=== PATIENT | female | born 1935 | race Caucasian/White ===

== ENCOUNTER 2016-12-24 20:20 | Emergency (ER) | payer OTHER ==
[2016-12-24 20:30] VITALS: BP 134/66; PULSE 60; TEMP 98.2; BMI 39.6
--- NOTE | 2016-12-24 20:54 | PDOC ---
*Physical Exam - Vital Signs Last Vital Signs Temp Pulse Resp BP Pulse Ox 98.2 F 60 18 134/66 97 12/24/16 20:29 12/24/16 20:29 12/24/16 20:29 12/24/16 20:29 12/24/16 20:29 Medical Decision Making - Medical Decision Making 12/24/16 20:54 agree with care from LYUDMILA Galvan *DC/Admit/Observation/Transfer Diagnosis at time of Disposition: Folliculitis - Discharge Dispostion Disposition: HOME Condition at time of disposition: Stable - Prescriptions Prescriptions: Levofloxacin [Levaquin -] 250 mg PO DAILY #7 tablet - Patient Instructions Printed Discharge Instructions: DI for Folliculitis Additional Instructions: Please take medication as prescribed and follow up with your primary care doctor within the next 2-3 days. If you experience fever, chills, nausea, vomiting, diarrhea, weakness, change in vision, difficulty speaking, swallowing , or walking, or develop any new or worsening symptoms, please return to the ER.
--- NOTE | 2016-12-24 20:58 | PDOC ---
History of Present Illness - General Chief Complaint: Headache Stated Complaint: SIDE PAIN(HEAD) Time Seen by Provider: 12/24/16 20:34 - History of Present Illness Initial Comments: 12/24/16 20:52 CHIEF COMPLAINT: head pain HISTORY OF PRESENT ILLNESS: 81 yo F with hx of HTN, HLD, hypothyroidism, NIDDM, presents to ED with pain to left head x 2 days. Patient states she noticed a painful bump on her head for the last two days. She denies any trauma or injury and denies any fall. She denies any slurred speech, difficulty walking, change in vision or radiation of the pain. She denies any pain behind her eye or blurry vision. She denies chest pain, shortness of breath, weakness, fever, chills, nausea, vomiting, or diarrhea. No recent travel or sick contacts. PAST MEDICAL HISTORY: as per HPI FAMILY HISTORY: Mother - [place] SOCIAL HISTORY: Lives at home. Denies tobacco, alcohol, illicit drug use. ALLERGIES: No known drug allergies REVIEW OF SYSTEMS General/Constitutional: Denies fever or chills. Denies weakness, weight change. HEENT: Denies change in vision. Denies ear pain or discharge. Denies sore throat. Cardiovascular: Denies chest pain or shortness of breath. Respiratory: Denies cough, wheezing, or hemoptysis. Gastrointestinal: Denies nausea, vomiting, diarrhea or constipation. Denies rectal bleeding. Genitourinary: Denies dysuria, frequency, or change in urination. Musculoskeletal: Denies joint or muscle swelling or pain. Denies neck or back pain. Skin and breasts: Denies rash or easy bruising. Neurologic: Denies headache, vertigo, loss of consciousness, or loss of sensation. PHYSICAL EXAM General Appearance: Well-appearing, appropriately dressed. No apparent distress , no intoxication. HEENT: 1 in x 1.5 in area of fluctuance to left occiput, no erythema. EOMI, PERRLA, normal ENT inspection, normal voice, TMs normal, pharynx normal. No conjunctival pallor. No photophobia, scleral icterus. Neck: Supple. Trachea midline. No tenderness, rigidity, carotid bruit, stridor , lymphadenopathy, or thyromegaly. Respiratory/Chest: Lungs CTAB. Cardiovascular: RRR. S1, S2. Musculoskeletal/Extremities: Normal inspection. FROM of all extremities, normal capillary refill. Pelvis Stable. No CVA tenderness. No tenderness to extremities, pedal edema, swelling, erythema or deformity. Integumentary: Appropriate color, dry, warm. 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 Fully oriented, alert. Appropriate mood/affect. Motor strength 5/5. No appreciable EOM palsy, facial droop or sensory deficit.A &Ox3, follow commands, respond appropriately CN2-12: conjugate gaze, pupil round, equal and reactive to light. Visual field full to confrontation. EOMI without nystagmus, pursuit is smooth without saccade. Facial sensation and muscle activation intact bilaterally. Hearing intact bilaterally. Palate elevate symmetrically. Shoulder shrug and neck turn full strength. Tongue protrude midline. Motor: UE and LE strength 5/5 throughout bilaterally. Muscle tone and bulk normal. Cerebellar: Rapid-alternating movement with regular rhythm without bradykinesia. Ijazam-pv-bwbu and xbvv-ku-nelp intact bilaterally without dysmetria or overshoot. . Past History - Past Medical History Allergies/Adverse Reactions: Allergies Allergy/AdvReac Type Severity Reaction Status Date / Time No Known Allergies Allergy Verified 12/24/16 20:28 Home Medications: Ambulatory Orders Amlodipine Besylate 5 mg PO DAILY 05/17/16 Ipratropium [place] [Atrovent] 2 puff NS ASDIR 05/17/16 Irbesartan 300 mg PO DAILY 05/17/16 Levothyroxine [Synthroid -] 125 mcg PO DAILY 05/17/16 Metformin HCl [Metformin HCl ER] 1,000 mg PO BID 05/17/16 Metoprolol Succinate [Toprol XL -] 25 mg PO DAILY 05/17/16 Nitroglycerin [Nitrostat] 0.4 mg SL ASDIR 05/17/16 Pantoprazole Sodium [Protonix] 40 mg PO DAILY 05/17/16 Rosuvastatin Calcium [Crestor] 5 mg PO DAILY 05/17/16 Levofloxacin [Levaquin -] 250 mg PO DAILY #7 tablet 12/24/16 Cardiac Disorders: Yes (CAD) Diabetes: Yes (NIDDM) HTN: Yes Hypercholesterolemia: Yes - Surgical History Cholecystectomy: Yes - Psycho/Social/Smoking Cessation Hx Anxiety: No Suicidal Ideation: No Smoking Status: No Smoking History: Never smoked Number of Cigarettes Smoked Daily: 0 Hx Alcohol Use: No Drug/Substance Use Hx: No *Physical Exam - Vital Signs Last Vital Signs Temp Pulse Resp BP Pulse Ox 98.2 F 60 18 134/66 97 12/24/16 20:29 12/24/16 20:29 12/24/16 20:29 12/24/16 20:29 12/24/16 20:29 *DC/Admit/Observation/Transfer Diagnosis at time of Disposition: Folliculitis - Discharge Dispostion Disposition: HOME Condition at time of disposition: Stable Admit: No - Prescriptions Prescriptions: Levofloxacin [Levaquin -] 250 mg PO DAILY #7 tablet - Patient Instructions Printed Discharge Instructions: DI for Folliculitis Additional Instructions: Please take medication as prescribed and follow up with your primary care doctor within the next 2-3 days. If you experience fever, chills, nausea, vomiting, diarrhea, weakness, change in vision, difficulty speaking, swallowing , or walking, or develop any new or worsening symptoms, please return to the ER.
== END 2016-12-24 21:44 | disposition home or self-care (01) ==
LOC: JER 20:20
DX: L73.9 Follicular disorder, unspecified (principal); I10 Essential (primary) hypertension; E78.5 Hyperlipidemia, unspecified; E03.9 Hypothyroidism, unspecified; E11.9 Type 2 diabetes mellitus without complications; Z79.84 Long term (current) use of oral hypoglycemic drugs
CPT/HCPCS: 99281-25

== ENCOUNTER 2017-03-28 02:14 | Observation (INO) | payer OTHER ==
--- NOTE | 2017-03-28 02:39 | PDOC ---
History of Present Illness - General Chief Complaint: Chest Pain Stated Complaint: CHEST PAIN Time Seen by Provider: 03/28/17 02:38 History Source: Patient, Family (daughter) Exam Limitations: No Limitations - History of Present Illness Initial Comments: 03/28/17 03:42 81-year-old female brant with a history of angina, NIDDM, hypertension, hypothyroidism presents to the emergency department with her daughter this evening complaining of 7/10 midsternal intermittent chest pressure which radiates to the back with slight shortness of breath and diaphoresis. Patient states she was laying supine in her bed getting ready to sleep when she felt acute chest pressure. Patient immediately took 2 baby aspirins/81 mg. 5 minutes later, patient took 3 SL nitroglycerin tablets which cause slight dizziness but subsided within minutes. Patient states she became pain-free. Patient denies any nausea/vomiting, lightheadedness, headaches, abdominal pains, urinary symptoms. Last angina: 2011 Patient states she never had any cardiac surgery or cardiac stents placed. Presenting Symptoms: Chest Pain, Short of Breath Timing/Duration: reports: intermittent, resolved prior to arrival Severity/Quality: reports: mild, pressure Location: reports: substernal Chest Pain Radiation: reports: back Activities at Onset: reports: rest Past History - Travel Traveled outside of the country in the last 30 days: No Close contact w/someone who was outside of country & ill: No - Past Medical History Allergies/Adverse Reactions: Allergies Allergy/AdvReac Type Severity Reaction Status Date / Time No Known Allergies Allergy Verified 12/24/16 20:28 Home Medications: Ambulatory Orders Amlodipine Besylate 5 mg PO DAILY 05/17/16 Ipratropium [place] [Atrovent] 2 puff NS ASDIR 05/17/16 Irbesartan 300 mg PO DAILY 05/17/16 Levothyroxine [Synthroid -] 125 mcg PO DAILY 05/17/16 Metformin HCl [Metformin HCl ER] 1,000 mg PO BID 05/17/16 Metoprolol Succinate [Toprol XL -] 25 mg PO DAILY 05/17/16 Nitroglycerin [Nitrostat] 0.4 mg SL ASDIR 05/17/16 Pantoprazole Sodium [Protonix] 40 mg PO DAILY 05/17/16 Rosuvastatin Calcium [Crestor] 5 mg PO DAILY 05/17/16 Levofloxacin [Levaquin -] 250 mg PO DAILY #7 tablet 02/01/17 Amlodipine Besylate 5 mg PO DAILY 03/28/17 Ipratropium [place] [Atrovent Hfa] 12.9 gm IH PRN 03/28/17 Cardiac Disorders: Yes (CAD) Diabetes: Yes (NIDDM) HTN: Yes Hypercholesterolemia: Yes - Surgical History Cholecystectomy: Yes - Psycho/Social/Smoking Cessation Hx Anxiety: No Suicidal Ideation: No Smoking Status: No Smoking History: Never smoked Number of Cigarettes Smoked Daily: 0 Hx Alcohol Use: No Drug/Substance Use Hx: No Review of Systems - Review of Systems Able to Perform ROS?: Yes Comments:: 03/28/17 03:41 CONSTITUTIONAL: Absent: fever, chills, diaphoresis, generalized weakness, malaise, loss of appetite HEENT: Absent: rhinorrhea, nasal congestion, throat pain, throat swelling, difficulty swallowing, mouth swelling, ear pain, eye pain, visual Changes CARDIOVASCULAR: +CP/midsternal Absent: loss of consciousness, palpitations, irregular heart rate, peripheral edema RESPIRATORY: +SOB Absent: cough, dyspnea with exertion, orthopnea, wheezing, stridor, hemoptysis GASTROINTESTINAL: Absent: abdominal pain, abdominal distension, nausea, vomiting, diarrhea, constipation, melena, hematochezia GENITOURINARY: Absent: dysuria, frequency, urgency, hesitancy, hematuria, flank pain, genital pain MUSCULOSKELETAL: Absent: myalgia, arthralgia, joint swelling SKIN: Absent: rash, itching, pallor HEMATOLOGIC/IMMUNOLOGIC: Absent: easy bleeding, easy bruising, lymphadenopathy, frequent infections ENDOCRINE: Absent: unexplained weight gain, unexplained weight loss, heat intolerance, cold intolerance NEUROLOGIC: Absent: headache, focal weakness or paresthesias, dizziness, unsteady gait, seizure, mental status changes, bladder or bowel incontinence PSYCHIATRIC: Absent: anxiety, depression, suicidal or homicidal ideation, hallucinations. Is the patient limited Czech proficient: No *Physical Exam - Vital Signs Last Vital Signs Temp Pulse Resp BP Pulse Ox 98.2 F 64 16 116/67 100 03/28/17 02:35 03/28/17 02:35 03/28/17 02:35 03/28/17 02:35 03/28/17 02:35 - Physical Exam Comments: 03/28/17 03:42 GENERAL: Well developed, well nourished. Awake and alert. No acute distress. HEENT: Normocephalic, atraumatic. PERRLA, EOMI. No conjunctival pallor. Sclera are non- icteric. Moist mucous membranes. Oropharynx is clear. NECK: Supple. Full ROM. No JVD. Carotid pulses 2+ and symmetric, without bruits. No thyromegaly. No lymphadenopathy. CARDIOVASCULAR: Regular rate and rhythm. No murmurs, rubs, or gallops. Distal pulses are 2+ and symmetric. PULMONARY: No evidence of respiratory distress. Lungs clear to auscultation bilaterally. No wheezing, rales or rhonchi. ABDOMINAL: Soft. Non-tender. Non-distended. No rebound or guarding. No organomegaly. Normoactive bowel sounds. MUSCULOSKELETAL Normal range of motion at all joints. No bony deformities or tenderness. No CVA tenderness. EXTREMITIES: No cyanosis. No clubbing. No edema. No calf tenderness. SKIN: Warm and dry. Normal capillary refill. No rashes. No jaundice. NEUROLOGICAL: Alert, awake, appropriate. Cranial nerves 2-12 intact. No deficits to light touch and temperature in face, upper extremities and lower extremities. No motor deficits in the in face, upper extremities and lower extremities. Normoreflexic in the upper and lower extremities. Normal speech. Toes are down- going bilaterally. Gait is normal without ataxia. PSYCHIATRIC: Cooperative. Good eye contact. Appropriate mood and affect. Heart Score/ECG Review - History History: Moderately suspicious - Electrocardiogram EKG: Normal - Age Age: 45-65 - Risk Factors Risk Factors Heart Score: Yes Hx Hypertension, Yes Hx Diabetes, Yes Positive family hx of cardiac disease, Yes Hx Obesity Based on the list above the patient has:: >/=3 risk factors or Hx atherosclerotic disease - Troponin Troponin: </= normal limit - Score Heart Score - Total: 4 ED Treatment Course - LABORATORY CBC & Chemistry Diagram: 03/28/17 02:36 03/28/17 02:36 - ADDITIONAL ORDERS Additional order review: Laboratory Results 03/28/17 03/28/17 02:36 02:36 INR 0.94 Sodium 140 Potassium 3.5 D Chloride 101 Carbon Dioxide 27 Anion Gap 12 BUN 23 H Creatinine 1.4 H Creat Clearance w eGFR 36.27 Random Glucose 154 H Calcium 9.1 Total Bilirubin 0.3 AST 14 L D ALT 18 D Alkaline Phosphatase 65 Creatine Kinase 246 H D Creatine Kinase Index 0.6 CK-MB (CK-2) 1.408 Troponin I < 0.02 Total Protein 7.3 Albumin 4.0 03/28/17 02:36 RBC 4.07 MCV 84.3 MCHC 32.4 RDW 12.7 MPV 9.5 Neutrophils % 63.1 Lymphocytes % 28.1 D Monocytes % 7.4 Eosinophils % 0.8 Basophils % 0.6 Progress Note - Progress Note Progress Note: 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
[2017-03-28 02:48] VITALS: BMI 39.5
[2017-03-28 03:19] LABS: BASOPHIL 0.6 % (0-2.0); EOSINOPHIL 0.8 % (0-4.5); MCH 27.4 pg (25.7-33.7); MCHC 32.4 g/dl (32.0-36.0); MEAN CELL VOLUME 84.3 fl (80-96); MEAN PLT VOLUME 9.5 fl (7.5-11.1); NEUTROPHILS 63.1 % (42.8-82.8); PLATELET COUNT 186 K/MM3 (134-434); RDW 12.7 % (11.6-15.6); WHITE BLOOD COUNT 8.6 K/mm3 (4.0-10.0)
[2017-03-28 03:33] LABS: INR 0.94 (0.82-1.09); PROTHROMBIN TIME (PATIENT) 10.3 SEC (9.98-11.88)
[2017-03-28 03:41] LABS: ANION GAP 12 (8-16); BILIRUBIN,TOTAL 0.3 mg/dL (0.2-1.0); CALCIUM 9.1 mg/dL (8.5-10.1); CO2 27 mmol/L (21-32); CREATININE 1.4 mg/dL (0.55-1.02); GLUCOSE,RANDOM 154 mg/dL (74-106); SGOT/AST 14 U/L (15-37); SGPT/ALT 18 U/L (12-78); TOT PROT 7.3 g/dl (6.4-8.2)
[2017-03-28 03:44] LABS: ALK PHOS 65 U/L (45-117); TROPONIN I < 0.02 ng/ml (0.00-0.05)
--- NOTE | 2017-03-28 06:29 | HP ---
CHIEF COMPLAINT: chest pain PCP: Jesus Todd [phone]; Cardiology: Dr. Paez at [facility] cardiology center on [address] HISTORY OF PRESENT ILLNESS: This is a 81 year old female with a past medical history of angina (no CP for "years"), NIDDM, HTN, HLD, hypothyroidism, sleep apnea on CPAP who presented to the ED with CP. She states that she was in bed about to go to sleep when the pain started. She took 3 NTG and the pain resolved and has not recurred. Pt also with SOB and diaphoresis at time of event. Now with no CP or SOB. Pt states that her last stress test was March 2016 and was "normal;" last echo October 2016 also "normal" as per patient. ER course was notable for: (1) trop neg (2) ECG without acute changes Recent Travel: pt denies PAST MEDICAL HISTORY: angina-no interventions, last stress test 1 year ago and normal as per pt HTN HLD NIDDM hypothyroidism sleep apnea on CPAP PAST SURGICAL HISTORY: cholecystectomy, hysterectomy Social History: Smoking: pt denies Alcohol: pt denies Drugs: pt denies Family History: mother , [place] age 82 father mid 90s, no known medical problems 1 sister with IDDM, 7 brothers, 1 with DM, no heart problems. Allergies No Known Allergies Allergy (Verified 12/24/16 20:28) HOME MEDICATIONS: 3 Medication Instructions Recorded Amlodipine Besylate 5 mg PO DAILY 05/17/16 Ipratropium [place] [Atrovent] 2 puff NS ASDIR 05/17/16 Irbesartan 300 mg PO DAILY 05/17/16 Levothyroxine [Synthroid -] 125 mcg PO DAILY 05/17/16 Metformin HCl [Metformin HCl ER] 1,000 mg PO BID 05/17/16 Metoprolol Succinate [Toprol XL -] 25 mg PO DAILY 05/17/16 Nitroglycerin [Nitrostat] 0.4 mg SL ASDIR 05/17/16 Pantoprazole Sodium [Protonix] 40 mg PO DAILY 05/17/16 Rosuvastatin Calcium [Crestor] 5 mg PO DAILY 05/17/16 Levofloxacin [Levaquin -] 250 mg PO DAILY #7 tablet 12/24/16 Amlodipine Besylate 5 mg PO DAILY 03/28/17 Ipratropium [place] [Atrovent Hfa] 12.9 gm IH PRN 03/28/17 REVIEW OF SYSTEMS CONSTITUTIONAL: Present: diaphoresis Absent: fever, chills, generalized weakness, malaise, loss of appetite, weight change HEENT: Absent: rhinorrhea, nasal congestion, throat pain, throat swelling, difficulty swallowing, mouth swelling, ear pain, eye pain, visual changes CARDIOVASCULAR: Present: chest pain Absent: syncope, palpitations, irregular heart rate, lightheadedness, peripheral edema RESPIRATORY: Present: shortness of breath Absent: cough, dyspnea with exertion, orthopnea, wheezing, stridor, hemoptysis GASTROINTESTINAL: Absent: abdominal pain, abdominal distension, nausea, vomiting, diarrhea, constipation, melena, hematochezia GENITOURINARY: Absent: dysuria, frequency, urgency, hesitancy, hematuria, flank pain, genital pain MUSCULOSKELETAL: Absent: myalgia, arthralgia, joint swelling, back pain, neck pain SKIN: Absent: rash, itching, pallor HEMATOLOGIC/IMMUNOLOGIC: Absent: easy bleeding, easy bruising, lymphadenopathy, frequent infections ENDOCRINE: Absent: unexplained weight gain, unexplained weight loss, heat intolerance, cold intolerance NEUROLOGIC: Absent: headache, focal weakness or paresthesias, dizziness, unsteady gait, seizure, mental status changes, bladder or bowel incontinence PSYCHIATRIC: Absent: anxiety, depression, suicidal or homicidal ideation, hallucinations. PHYSICAL EXAMINATION Vital Signs - 24 hr 3 03/28/17 02:35 Temperature 98.2 F Pulse Rate 64 Respiratory 16 Rate Blood Pressure 116/67 O2 Sat by Pulse 100 Oximetry (%) GENERAL: Awake, alert, and fully oriented, in no acute distress. HEAD: Normal with no signs of trauma. EYES: Pupils equal, round and reactive to light, extraocular movements intact, sclera anicteric, conjunctiva clear. No lid lag. EARS, NOSE, THROAT: Ears normal, nares patent, oropharynx clear without exudates. Moist mucous membranes. NECK: Normal range of motion, supple without lymphadenopathy, JVD, or masses. LUNGS: Breath sounds equal, clear to auscultation bilaterally. No wheezes, and no crackles. No accessory muscle use. HEART: Regular rate and rhythm, normal S1 and S2 without murmur, rub or gallop. ABDOMEN: Soft, nontender, not distended, normoactive bowel sounds, no guarding, no rebound, no masses. No hepatomegaly or splenomegaly. MUSCULOSKELETAL: Normal range of motion at all joints. No bony deformities or tenderness. No CVA tenderness. UPPER EXTREMITIES: 2+ pulses, warm, well-perfused. No cyanosis. No clubbing. No peripheral edema. LOWER EXTREMITIES: 2+ pulses, warm, well-perfused. No calf tenderness. No peripheral edema. NEUROLOGICAL: Cranial nerves II-XII intact. Normal speech. Normal gait. PSYCHIATRIC: Cooperative. Good eye contact. Appropriate mood and affect. SKIN: Warm, dry, normal turgor, no rashes or lesions noted, normal capillary refill. Laboratory Results - last 24 hr 3 03/28/17 03/28/17 03/28/17 02:36 02:36 02:36 WBC 8.6 D RBC 4.07 Hgb 11.1 Hct 34.3 MCV 84.3 MCHC 32.4 RDW 12.7 Plt Count 186 MPV 9.5 Neutrophils % 63.1 Lymphocytes % 28.1 D Monocytes % 7.4 Eosinophils % 0.8 Basophils % 0.6 INR 0.94 Sodium 140 Potassium 3.5 D Chloride 101 Carbon Dioxide 27 Anion Gap 12 BUN 23 H Creatinine 1.4 H Creat Clearance w eGFR 36.27 Random Glucose 154 H Calcium 9.1 Total Bilirubin 0.3 AST 14 L D ALT 18 D Alkaline Phosphatase 65 Creatine Kinase 246 H D Creatine Kinase Index 0.6 CK-MB (CK-2) 1.408 Troponin I < 0.02 Total Protein 7.3 Albumin 4.0 ECG: NSR@ 62bpm; QTC 420, anterior infarct, age indetermined, inverted t in lead 3, V4, flattened V2, V3, not present on ECG 2012 CXR: no acute findings, read by me, official read pending ASSESSMENT/PLAN: 81yF with PMH HTN, angina, HLD, NIDDM, hypothyroidism presented to the ED with Chest pain. She is being admitted for further observation. Chest pain with h/o angina - first troponin negative, trend x 2 more - Heart score 5, cardiology consult ordered. - took ASA 162 at home, will start daily 81mg HTN - cont home toprol, irbesartan, norvasc as BP well controlled on same. HLD - cont crestor 5mg NIDDM - hold metformin for now, start insulin SS, titrate up as indicated. OSIMN - son instructed to bring in home machine to obtain settings DVT - chemoprophylaxis deferred for now, expected LOS <48h, reassess if here longer FEN - pt tolerating po fluids, cont same - repeat BMP with second trop - diabetic/low sodium diet. Dispo: pt currently requires inpatient observation for management of her emergent condition. Full code. Visit type - Emergency Visit Emergency Visit: Yes ED Registration Date: 03/28/17 Care time: The patient presented to the Emergency Department on the above date and was hospitalized for further evaluation of their emergent condition. - New Patient This patient is new to me today: Yes Date on this admission: 03/28/17 - Critical Care Critical Care patient: No
[2017-03-28] MEDS ORDERED: INSULIN SLIDING SCALE (NOVOLOG) 1 VIAL SQ SCH (07:00)
[2017-03-28] MEDS ORDERED: INSULIN REGULAR HUMAN 100 UNITS/ML *VIAL ONE (07:38)
--- NOTE | 2017-03-28 08:56 | CON.CARD ---
Consult Consult Specialty:: cardio Referred by:: hospitalist Reason for Consultation:: cp - History of Present Illness Chief Complaint: cp History of Present Illness: 81 year old female here with cp. lay down to go to bed around 1am this morning. immediately felt central chest pain, diffuse. can't describe quality of it. not radiating (incl to back). immediately took 2 ASA. after about 5-7 minutes SHE TOOK 3 X SL NITRO ALL AT ONCE and pain resolved "immediately." +assctd diaph. no sob, LH, no naus/vomiting, no acid/burning quality. says she never had this pain before and not like her prior "angina" sx. says she has no cp with routine walking/exertion. per hospitalist note, history obtained of unremarkable stress test 04/07 anbd echo 11/07 at her cardio (dr mendes)--pt tells me she had some testing in 03/09 as well. she cannot recall or be confident about timing of last stress test PMH: "angina" controlled medically x many yrs; NIDDM, HTN, HLD, hypothyroidism, sleep apnea on CPAP no cigs - Alcohol/Substance Use Hx Alcohol Use: No - Smoking History Smoking history: Never smoked Have you smoked in the past 12 months: No Aproximately how many cigarettes per day: 0 Home Medications - Allergies Allergies/Adverse Reactions: Allergies Allergy/AdvReac Type Severity Reaction Status Date / Time No Known Allergies Allergy Verified 12/24/16 20:28 - Home Medications Home Medications: Ambulatory Orders Amlodipine Besylate 5 mg PO DAILY 05/17/16 Ipratropium Hyden [Atrovent] 2 puff NS ASDIR 05/17/16 Irbesartan 300 mg PO DAILY 05/17/16 Levothyroxine [Synthroid -] 125 mcg PO DAILY 05/17/16 Metformin HCl [Metformin HCl ER] 1,000 mg PO BID 05/17/16 Metoprolol Succinate [Toprol XL -] 25 mg PO DAILY 05/17/16 Nitroglycerin [Nitrostat] 0.4 mg SL ASDIR 05/17/16 Pantoprazole Sodium [Protonix] 40 mg PO DAILY 05/17/16 Rosuvastatin Calcium [Crestor] 5 mg PO DAILY 05/17/16 Levofloxacin [Levaquin -] 250 mg PO DAILY #7 tablet 12/24/16 Amlodipine Besylate 5 mg PO DAILY 03/28/17 Ipratropium Hyden [Atrovent Hfa] 12.9 gm IH PRN 03/28/17 Family Disease History - Family Disease History Family History: Denies (no cmp) Review of Systems - Review of Systems Constitutional: denies: Chills, Fever Eyes: denies: Eye Pain HENT: denies: Nasal Congestion Neck: denies: Stiffness Cardiovascular: denies: Palpitations Respiratory: denies: Orthopnea, PND Gastrointestinal: denies: Diarrhea, Rectal Bleeding Genitourinary: denies: Burning, Hematuria Musculoskeletal: denies: Muscle Pain Integumentary: denies: Rash Neurological: denies: Numbness, Seizure, Syncope Endocrine: denies: Excessive Sweating Hematology/Lymphatic: denies: Excessive Bleeding Vital Signs: Vital Signs Temperature 98.2 F 03/28/17 06:45 Pulse Rate 52 L 03/28/17 07:45 Respiratory Rate 13 03/28/17 07:45 Blood Pressure 130/79 03/28/17 07:45 O2 Sat by Pulse Oximetry (%) 98 03/28/17 07:45 Constitutional: Yes: No Distress, Obese Eyes: No: Sclera Icterus HENT: No: Nasal Congestion Neck: No: Decreased ROM Respiratory: Yes: CTA Bilaterally. No: Accessory Muscle Use, Rales, Wheezes Gastrointestinal: Yes: Normal Bowel Sounds. No: Distention, Hepatomegaly, Palpable Mass, Tenderness Cardiovascular: Yes: Regular Rate and Rhythm JVD: No Carotid Bruit: No PMI: Non-Displaced Heart Sounds: Yes: S1, S2. No: Gallop Murmur: No: Systolic Murmur, Diastolic Murmur Musculoskeletal: Yes: Other (No kyphosis) Extremities: No: Cold, Cyanosis Edema: No Peripheral Pulses: 2+ Left Carotid, 2+ Right Carotid, 2+ Left Doralis Pedis, 2+ Right Dorsalis Pedis Integumentary: No: Jaundice Neurological: Yes: Alert, Oriented (x3) Psychiatric: No: Agitated - Other Data Labs, Other Data: INR, PTT INR 0.94 (0.82-1.09) 03/28/17 02:36 Laboratory Tests 03/28/17 03/28/17 02:36 02:36 WBC 8.6 D Hgb 11.1 Plt Count 186 Sodium 140 Potassium 3.5 D Carbon Dioxide 27 BUN 23 H Creatinine 1.4 H AST 14 L D ALT 18 D Creatine Kinase 246 H D Creatine Kinase Index 0.6 Troponin I < 0.02 ekg 03/28: NSR, normal axis/intervals; old AWM not present on prior 2012 tele: NSR Imaging - Results Chest X-ray: Report Reviewed, Image Reviewed Assessment/Plan Echo 2012 here: nl LV/EF, no RWMA; nl RV; nl LA; valves WNL unstable angia: -h/o remote "angina" no sx's x many yrs on meds -followed by dr mendes (cardio) for this -stress test ? 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 old AWMI pattern not present on prior here in 2012--based on appearance, suspect lead placement erroneous on ER ecg -rpt ECG today -initial trop eng, repeat 2nd at 8 hrs later -CXR here with no chf, ? cardiomeg, no mediastinal widening (reviewed by me); no clinical signs chf -will need to obtain last stress test result from dr mendes office on thursday: if 1 yr ago, pt needs repeat ischemia evaluation given these new sx's and she is diabetic elderly; if 6 mo or so ago, would not repeat nuclear stress test as unlikely to be illuminating, and would have to consider cath vs med mgmt with close outpt cardio f/u HTN: -bp stable -cont home meds HPL: -cont home tx, outpt f/u with dr mendes DM: -per hospitalist OSMIN: -outpt tx
--- NOTE | 2017-03-28 09:16 | EKG ---
Test Reason : Blood Pressure : / mmHG Vent. Rate : 062 BPM Atrial Rate : 062 BPM P-R Int : 188 ms QRS Dur : 098 ms QT Int : 414 ms P-R-T Axes : 041 -12 011 degrees QTc Int : 420 ms NORMAL SINUS RHYTHM ANTERIOR INFARCT , AGE UNDETERMINED ABNORMAL ECG WHEN COMPARED WITH ECG OF 03-MAR-2013 14:39, ANTERIOR INFARCT IS NOW PRESENT T WAVE INVERSION NOW EVIDENT IN ANTERIOR LEADS Confirmed by TIMOTHY ESPAÑA, HARIS ([id number]) on 03/28/2017 9:16:29 AM Referred By: Confirmed By:HARIS AGUIRRE MD
[2017-03-28 09:47] LABS: BASOPHIL 0.3 % (0-2.0); EOSINOPHIL 0.6 % (0-4.5); MCH 27.6 pg (25.7-33.7); MCHC 32.6 g/dl (32.0-36.0); MEAN CELL VOLUME 84.6 fl (80-96); MEAN PLT VOLUME 9.4 fl (7.5-11.1); NEUTROPHILS 62.1 % (42.8-82.8); PLATELET COUNT 172 K/MM3 (134-434); RDW 13.1 % (11.6-15.6); WHITE BLOOD COUNT 9.7 K/mm3 (4.0-10.0)
[2017-03-28 10:07] LABS: ANION GAP 10 (8-16); CALCIUM 9.4 mg/dL (8.5-10.1); CO2 27 mmol/L (21-32); COCKROFT - GAULT 60.7835; CREATININE 1.2 mg/dL (0.55-1.02); GLUCOSE,RANDOM 187 mg/dL (74-106); MAGNESIUM 1.9 mg/dL (1.8-2.4); PHOSPHOROUS 2.7 mg/dL (2.5-4.9)
[2017-03-28] MEDS: PANTOPRAZOLE 40 MG TABLET (FP) PO SCH (10:27)
[2017-03-28] MEDS: amLODIPine BESYLATE 5 MG TABLET (FP) PO SCH (10:27)
[2017-03-28] MEDS: LEVOTHYROXINE NA 125 MCG TABLET (FP) PO SCH (10:27)
[2017-03-28] MEDS: METOPROLOL SUCCINATE 25 MG TAB.SR.24H (FP) PO SCH ×2 (10:27→10:35)
[2017-03-28] MEDS: LOSARTAN POTASSIUM 50 MG TABLET (FP) PO SCH (10:27)
--- NOTE | 2017-03-28 10:38 | PN ---
Physical Exam: SUBJECTIVE: Patient seen and examined. She denies chest pain at this time. Denies shortness of breath. States she has Nitro @ home which she renews frequently for her anginal pain. 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 AV block/pvcs Vital Signs Period Temp Pulse Resp BP Sys/Choi Pulse Ox Last 24 Hr 98.2 F 52-56 13-16 130-130/73-79 98-98 GENERAL: The patient is awake, alert, and fully oriented, in no acute distress. HEAD: Normal with no signs of trauma. EYES: PERRL, extraocular movements intact, sclera anicteric, conjunctiva clear. No ptosis. ENT: Ears normal, nares patent, oropharynx clear without exudates, moist mucous membranes. NECK: Trachea midline, full range of motion, supple. LUNGS: Breath sounds equal, clear to auscultation bilaterally, no wheezes, no crackles, no accessory muscle use. HEART: sinus bradycardia 59bpm ABDOMEN: Soft, nontender, nondistended, normoactive bowel sounds, no guarding, no rebound, no hepatosplenomegaly, no masses. EXTREMITIES: no edema. NEUROLOGICAL: Normal speech, gait not observed. PSYCH: Normal mood, normal affect. SKIN: Warm, dry, normal turgor, no rashes or lesions noted Laboratory Results - last 24 hr 03/28/17 03/28/17 09:20 09:20 WBC 9.7 RBC 4.05 Hgb 11.2 Hct 34.3 MCV 84.6 MCHC 32.6 RDW 13.1 Plt Count 172 MPV 9.4 Neutrophils % 62.1 Lymphocytes % 31.0 Monocytes % 6.0 Eosinophils % 0.6 Basophils % 0.3 Sodium 138 Potassium 3.6 Chloride 101 Carbon Dioxide 27 Anion Gap 10 BUN 21 H Creatinine 1.2 H Random Glucose 187 H D Calcium 9.4 Phosphorus 2.7 Magnesium 1.9 Active Medications Generic Name Dose Route Start Last Admin Trade Name Freq PRN Reason Stop Dose Admin Amlodipine Besylate 5 mg 03/28/17 10:00 03/28/17 10:27 Norvasc - PO 5 mg DAILY [facility] Administration Insulin Aspart 1 vial 03/28/17 08:07 Novolog Vial Sliding Scale - SQ ACHS [facility] Protocol Levothyroxine Sodium 125 mcg 03/28/17 10:00 03/28/17 10:27 Synthroid - PO 125 mcg DAILY [facility] Administration Losartan Potassium 100 mg 03/28/17 10:00 03/28/17 10:27 Cozaar - PO 100 mg DAILY [facility] Administration Metoprolol Succinate 25 mg 03/28/17 10:00 03/28/17 10:35 Toprol Xl - PO Not Given DAILY [facility] Pantoprazole Sodium 40 mg 03/28/17 10:00 03/28/17 10:27 Protonix - PO 40 mg DAILY [facility] Administration Rosuvastatin Calcium 5 mg 03/28/17 22:00 Crestor - PO HS [facility] ASSESSMENT/PLAN: Patient is a 81 year old female with a significant past medical history of angina, diabetes mellitus, hypertension, hyperlipidemia, hypothyroidism and sleep apnea on home CPAP. She presented to the ED on 03/28/2017 with chest pain, shortness of breath and diaphoresis that began last night while attempting to go to sleep. She took 3 Nitro pills and the chest pain pain subsided. On exam, she was laying in the bed, in no acute distress. She appears comfortable at rest. She denies any chest pain or shortness of breath. Cardiology: Chest Pain/Rule out ACS Assessment/Plan: Troponin negative x 2 As per Ed notes, pt took ASA 162mg @ home Now on ASA 81mg daily As per cardiology note, will obtain last stress test result from dr mendes office on thursday and monitor if pt needs repeat exam. Hypertension - chronic Assessment/Plan: On Toprol 25mg PO daily, Norvasc 5mg daily, Cozaar 100mg daily Monitor BP Hyperlipidemia: Assessment/Plan: On home dose of Crestor 5mg PO @ HS Endocrine: Assessment/Plan: Novolog sliding scale Monitor BGMs F.E.N. Fluids: tolerating PO Electrolytes: bmp in a.m. Prophylaxis: DVT: ambulatory GI: Protonix Disposition: pt currently requires inpatient observation for management of her emergent condition. Full code. Visit type - Emergency Visit Emergency Visit: Yes ED Registration Date: 03/28/17 Care time: The patient presented to the Emergency Department on the above date and was hospitalized for further evaluation of their emergent condition. - New Patient This patient is new to me today: Yes Date on this admission: 03/29/17 - Critical Care Critical Care patient: No - Discharge Referral Referred to [facility] No
[2017-03-28 11:28] LABS: TROPONIN I < 0.02 ng/ml (0.00-0.05)
[2017-03-28] MEDS: INSULIN SLIDING SCALE (NOVOLOG) 1 VIAL SQ SCH ×3 (11:55→21:27)
--- NOTE | 2017-03-28 16:28 | EKG ---
Test Reason : Blood Pressure : / mmHG Vent. Rate : 059 BPM Atrial Rate : 059 BPM P-R Int : 222 ms QRS Dur : 096 ms QT Int : 452 ms P-R-T Axes : 046 -07 011 degrees QTc Int : 447 ms SINUS BRADYCARDIA WITH 1ST DEGREE A-V BLOCK WITH OCCASIONAL PREMATURE VENTRICULAR COMPLEXES NONSPECIFIC T WAVE ABNORMALITY ABNORMAL ECG WHEN COMPARED WITH ECG OF 28-MAR-2017 02:22, PREMATURE VENTRICULAR COMPLEXES ARE NOW PRESENT [facility] INTERVAL HAS INCREASED CRITERIA FOR ANTERIOR INFARCT ARE NO LONGER PRESENT Confirmed by HARIS AGUIRRE MD ([id number]) on 03/28/2017 4:27:54 PM Referred By: Hawk SHAFER Confirmed By:HARIS AGUIRRE MD
[2017-03-28] MEDS: INSULIN DETEMIR 100 UNITS/ML MDV SQ SCH (21:27)
[2017-03-28] MEDS ORDERED: ROSUVASTATIN CA 5 MG TABLET (FP) PO SCH (22:00)
[2017-03-29] MEDS: INSULIN SLIDING SCALE (NOVOLOG) 1 VIAL SQ SCH ×4 (06:06→21:10)
[2017-03-29 08:07] LABS: BASOPHIL 0.3 % (0-2.0); EOSINOPHIL 1.3 % (0-4.5); MCH 27.8 pg (25.7-33.7); MCHC 32.9 g/dl (32.0-36.0); MEAN CELL VOLUME 84.3 fl (80-96); MEAN PLT VOLUME 9.5 fl (7.5-11.1); PLATELET COUNT 172 K/MM3 (134-434); RDW 13.2 % (11.6-15.6)
[2017-03-29 08:57] LABS: ALBUMIN 3.7 g/dl (3.4-5.0); BILIRUBIN,TOTAL 0.5 mg/dL (0.2-1.0); COCKROFT - GAULT 66.3085; CREATININE 1.1 mg/dL (0.55-1.02); THYROID STIMULATING HORMONE 1.54 uIU/ml (0.358-3.74)
--- NOTE | 2017-03-29 09:36 | PN ---
Physical Exam: SUBJECTIVE: Patient seen and examined. States she feels well today, not able to sleep last night. Denies chest pain or shortness of breath Tolerated CPAP last night. OBJECTIVE: Triglycerides 183 HDL 39 Renal function stable, increased Crestor to 10mg @hs Vital Signs Period Temp Pulse Resp BP Sys/Choi Pulse Ox Last 24 Hr 97.6 F-98.5 F 50-69 16-20 128-154/56-73 98-98 GENERAL: The patient is awake, alert, and fully oriented, in no acute distress. HEAD: Normal with no signs of trauma. EYES: PERRL, extraocular movements intact, sclera anicteric, conjunctiva clear. No ptosis. ENT: Ears normal, nares patent, oropharynx clear without exudates, moist mucous membranes. NECK: Trachea midline, full range of motion, supple. LUNGS: Breath sounds equal, clear to auscultation bilaterally, no wheezes, no crackles, no accessory muscle use. HEART: sinus bradycardia 59bpm ABDOMEN: Soft, nontender, nondistended, normoactive bowel sounds, no guarding, no rebound, no hepatosplenomegaly, no masses. EXTREMITIES: no edema. NEUROLOGICAL: Normal speech, gait not observed. PSYCH: Normal mood, normal affect. SKIN: Warm, dry, normal turgor, no rashes or lesions noted Laboratory Results - last 24 hr 03/28/17 03/28/17 03/28/17 07:00 07:34 09:20 WBC 9.7 RBC 4.05 Hgb 11.2 Hct 34.3 MCV 84.6 MCHC 32.6 RDW 13.1 Plt Count 172 MPV 9.4 Neutrophils % 62.1 Lymphocytes % 31.0 Monocytes % 6.0 Eosinophils % 0.6 Basophils % 0.3 Sodium Potassium Chloride Carbon Dioxide Anion Gap BUN Creatinine Creat Clearance w eGFR POC Glucometer [id number] Random Glucose Calcium Phosphorus Magnesium Total Bilirubin AST ALT Alkaline Phosphatase Creatine Kinase Cancelled Troponin I Cancelled Total Protein Albumin Triglycerides Cholesterol Total LDL Cholesterol HDL Cholesterol TSH 03/28/17 03/28/17 03/28/17 09:20 17:10 21:19 WBC RBC Hgb Hct MCV MCHC RDW Plt Count MPV Neutrophils % Lymphocytes % Monocytes % Eosinophils % Basophils % Sodium 138 Potassium 3.6 Chloride 101 Carbon Dioxide 27 Anion Gap 10 BUN 21 H Creatinine 1.2 H Creat Clearance w eGFR POC Glucometer 183 Random Glucose 187 H D Calcium 9.4 Phosphorus 2.7 Magnesium 1.9 Total Bilirubin AST ALT Alkaline Phosphatase Creatine Kinase 241 H Troponin I < 0.02 < 0.02 Total Protein Albumin Triglycerides Cholesterol Total LDL Cholesterol HDL Cholesterol TSH 03/29/17 03/29/17 03/29/17 05:35 05:35 06:02 WBC 7.0 RBC 4.09 Hgb 11.4 Hct 34.5 MCV 84.3 MCHC 32.9 RDW 13.2 Plt Count 172 MPV 9.5 Neutrophils % 53.0 Lymphocytes % 38.8 D Monocytes % 6.6 Eosinophils % 1.3 D Basophils % 0.3 Sodium 138 Potassium 3.5 Chloride 101 Carbon Dioxide 27 Anion Gap 10 BUN 21 H Creatinine 1.1 H Creat Clearance w eGFR 47.91 POC Glucometer 154 Random Glucose 141 H D Calcium 9.0 Phosphorus Magnesium Total Bilirubin 0.5 D AST 11 L D ALT 17 Alkaline Phosphatase 55 Creatine Kinase Troponin I Total Protein 7.0 Albumin 3.7 Triglycerides 183 H Cholesterol 123 Total LDL Cholesterol 62 HDL Cholesterol 39 L D TSH 1.54 Active Medications Generic Name Dose Route Start Last Admin Trade Name Freq PRN Reason Stop Dose Admin Amlodipine Besylate 5 mg 03/28/17 10:00 03/28/17 10:27 Norvasc - PO 5 mg DAILY [facility] Administration Insulin Aspart 1 vial 03/28/17 19:06 03/29/17 06:06 Novolog Vial Sliding Scale - SQ Not Given [facility] Protocol Insulin Detemir 5 units 03/28/17 22:00 03/28/17 21:27 Levemir Vial SQ Not Given [facility] Levothyroxine Sodium 125 mcg 03/28/17 10:00 03/28/17 10:27 Synthroid - PO 125 mcg DAILY [facility] Administration Losartan Potassium 100 mg 03/28/17 10:00 03/28/17 10:27 Cozaar - PO 100 mg DAILY [facility] Administration Metoprolol Succinate 25 mg 03/28/17 11:05 Toprol Xl - PO DAILY [facility] Pantoprazole Sodium 40 mg 03/28/17 10:00 03/28/17 10:27 Protonix - PO 40 mg DAILY [facility] Administration Rosuvastatin Calcium 10 mg 03/29/17 09:29 Crestor - PO [facility] ASSESSMENT/PLAN: Patient is a 81 year old female with a significant past medical history of angina, diabetes mellitus, hypertension, hyperlipidemia, hypothyroidism and sleep apnea on home CPAP. She presented to the ED on 03/28/2017 with chest pain, shortness of breath and diaphoresis that began last night while attempting to go to sleep. She took 3 Nitro pills and the chest pain subsided. On exam, she was laying in the bed, in no acute distress. She appears comfortable at rest. She denies any chest pain or shortness of breath. Cardiology: Chest Pain/Rule out ACS Assessment/Plan: Troponin negative x 3 As per Ed notes, pt took ASA 162mg @ home Now on ASA 81mg daily As per cardiology note, will obtain last stress test result from dr mendes office on Thursday and monitor if pt needs repeat exam NPO @ midnight in case stress test is needed. Hypertension - chronic Assessment/Plan: On Toprol 25mg PO daily, Norvasc 5mg daily, Cozaar 100mg daily Monitor BP Hyperlipidemia: Assessment/Plan: On home dose of Crestor 5mg PO @ HS Endocrine: Assessment/Plan: Novolog sliding scale Monitor BGMs F.E.N. Fluids: tolerating PO Electrolytes: bmp in a.m. Prophylaxis: DVT: ambulatory GI: Protonix Disposition: pt currently requires inpatient observation for management of her emergent condition. Discharge once cleared by electroneurodiagnostic technician. Full code. Visit type - Emergency Visit Emergency Visit: Yes ED Registration Date: 03/28/17 Care time: The patient presented to the Emergency Department on the above date and was hospitalized for further evaluation of their emergent condition. - New Patient This patient is new to me today: No - Critical Care Critical Care patient: No - Discharge Referral Referred to [facility] Med P.C.: No
--- NOTE | 2017-03-29 10:00 | PN ---
Progress Note, Physician Chief Complaint: unstable angina History of Present Illness: no more cp no sob, palpit, syncope - Current Medication List Current Medications: Active Medications Amlodipine Besylate (Norvasc -) 5 mg PO DAILY [facility] Last Admin: 03/28/17 10:27 Dose: 5 mg Insulin Aspart (Novolog Vial Sliding Scale -) 1 vial SQ [facility] PRN Reason: Protocol Last Admin: 03/29/17 06:06 Dose: Not Given Insulin Detemir (Levemir Vial) 5 units SQ [facility] Last Admin: 03/28/17 21:27 Dose: Not Given Levothyroxine Sodium (Synthroid -) 125 mcg PO DAILY [facility] Last Admin: 03/28/17 10:27 Dose: 125 mcg Losartan Potassium (Cozaar -) 100 mg PO DAILY [facility] Last Admin: 03/28/17 10:27 Dose: 100 mg Metoprolol Succinate (Toprol Xl -) 25 mg PO DAILY [facility] Pantoprazole Sodium (Protonix -) 40 mg PO DAILY [facility] Last Admin: 03/28/17 10:27 Dose: 40 mg Rosuvastatin Calcium (Crestor -) 10 mg PO [facility] - Objective Vital Signs: Vital Signs Temperature 97.8 F 03/29/17 06:07 Pulse Rate 50 L 03/29/17 06:07 Respiratory Rate 18 03/29/17 06:07 Blood Pressure 132/71 03/29/17 06:07 O2 Sat by Pulse Oximetry (%) 98 03/29/17 07:02 Constitutional: Yes: No Distress, Calm, Obese Cardiovascular: Yes: Regular Rate and Rhythm, S1, S2. No: Gallop, Murmur Respiratory: Yes: Regular, CTA Bilaterally. No: Accessory Muscle Use, Rales, Wheezes Extremities: No: Cold Edema: No Neurological: Yes: Alert, Oriented Psychiatric: No: Agitated Labs: CBC, BMP 03/29/17 05:35 03/29/17 05:35 INR, PTT INR 0.94 (0.82-1.09) 03/28/17 02:36 - ....Imaging EKG: Other (tele: NSR, artifact) Assessment/Plan Echo 2012 here: nl LV/EF, no RWMA; nl RV; nl LA; valves WNL unstable angia: -h/o remote "angina" no sx's x many yrs on meds -followed by dr mendes (cardio) for this -stress test ? 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 old AWMI pattern not present on prior here in 2012--resolved on repeat ecg--based on appearance, suspect lead placement erroneous on ER ecg -trop neg x 3 -CXR here with no chf, ? cardiomeg, no mediastinal widening (reviewed by me); no clinical signs chf -will need to obtain last stress test result from dr mendes office on thursday: if 1 yr ago, pt needs repeat ischemia evaluation given these new sx's and she is diabetic elderly; if 6 mo or so ago, would not repeat nuclear stress test as unlikely to be illuminating, and would have to consider cath vs med mgmt with close outpt cardio f/u -will keep pt npo after midnight tonight to allow for repeat nuclear stress test if warranted, but will not order stress test until can clarify with dr mendes office in am timing of her last stress test HTN: -bp stable -cont home meds HPL: -LDL good, HDL low -cont home tx, outpt f/u with dr mendes -wt loss DM: -per hospitalist OSMIN: -cont cpap
[2017-03-29] MEDS: METOPROLOL SUCCINATE 25 MG TAB.SR.24H (FP) PO SCH (10:22)
[2017-03-29] MEDS: LEVOTHYROXINE NA 125 MCG TABLET (FP) PO SCH (10:22)
[2017-03-29] MEDS: amLODIPine BESYLATE 5 MG TABLET (FP) PO SCH (10:22)
[2017-03-29] MEDS: LOSARTAN POTASSIUM 50 MG TABLET (FP) PO SCH (10:22)
[2017-03-29] MEDS: PANTOPRAZOLE 40 MG TABLET (FP) PO SCH (10:22)
[2017-03-29] MEDS: INSULIN DETEMIR 100 UNITS/ML MDV SQ SCH (21:10)
[2017-03-29] MEDS ORDERED: ROSUVASTATIN CA 10 MG TABLET (FP) PO SCH (22:00)
[2017-03-30] MEDS: INSULIN SLIDING SCALE (NOVOLOG) 1 VIAL SQ SCH ×3 (06:07→17:28)
[2017-03-30 07:34] LABS: BASOPHIL 0.5 % (0-2.0); EOSINOPHIL 1.3 % (0-4.5); MCH 27.8 pg (25.7-33.7); MCHC 32.7 g/dl (32.0-36.0); MEAN CELL VOLUME 84.9 fl (80-96); MEAN PLT VOLUME 9.7 fl (7.5-11.1); NEUTROPHILS 54.9 % (42.8-82.8); PLATELET COUNT 173 K/MM3 (134-434); RDW 13.2 % (11.6-15.6); WHITE BLOOD COUNT 7.8 K/mm3 (4.0-10.0)
[2017-03-30 09:03] LABS: ALBUMIN 3.6 g/dl (3.4-5.0); BILIRUBIN,TOTAL 0.3 mg/dL (0.2-1.0); COCKROFT - GAULT 56.1085; CREATININE 1.3 mg/dL (0.55-1.02); TOT PROT 6.6 g/dl (6.4-8.2)
--- NOTE | 2017-03-30 10:36 | PN ---
Progress Note, Physician Chief Complaint: unstable angina History of Present Illness: no more cp denies sob, palpit, syncope - Current Medication List Current Medications: Active Medications Amlodipine Besylate (Norvasc -) 5 mg PO DAILY [facility] Last Admin: 03/29/17 10:22 Dose: 5 mg Insulin Aspart (Novolog Vial Sliding Scale -) 1 vial SQ [facility] PRN Reason: Protocol Last Admin: 03/30/17 06:07 Dose: Not Given Insulin Detemir (Levemir Vial) 5 units SQ [facility] Last Admin: 03/29/17 21:10 Dose: Not Given Levothyroxine Sodium (Synthroid -) 125 mcg PO DAILY [facility] Last Admin: 03/29/17 10:22 Dose: 125 mcg Losartan Potassium (Cozaar -) 100 mg PO DAILY [facility] Last Admin: 03/29/17 10:22 Dose: 100 mg Metoprolol Succinate (Toprol Xl -) 25 mg PO DAILY [facility] Last Admin: 03/29/17 10:22 Dose: 25 mg Pantoprazole Sodium (Protonix -) 40 mg PO DAILY [facility] Last Admin: 03/29/17 10:22 Dose: 40 mg Rosuvastatin Calcium (Crestor -) 10 mg PO [facility] Last Admin: 03/29/17 21:06 Dose: 10 mg - Objective Vital Signs: Vital Signs Temperature 98.2 F 03/30/17 08:10 Pulse Rate 48 L 03/30/17 08:10 Respiratory Rate 16 03/30/17 08:10 Blood Pressure 132/74 03/30/17 08:10 O2 Sat by Pulse Oximetry (%) 96 03/30/17 04:43 Constitutional: Yes: No Distress, Calm, Obese Cardiovascular: Yes: Regular Rate and Rhythm, S1, S2. No: Gallop, Murmur Respiratory: Yes: Regular, CTA Bilaterally. No: Accessory Muscle Use, Rales, Wheezes Extremities: No: Cold Edema: No Neurological: Yes: Alert, Oriented Psychiatric: No: Agitated Labs: CBC, BMP 03/30/17 05:35 03/30/17 05:35 INR, PTT INR 0.94 (0.82-1.09) 03/28/17 02:36 - ....Imaging EKG: Other (tele: NSR with sinus kaitlyn to 40s (incl 7pm yest)) Assessment/Plan Echo 2013 here: nl LV/EF, no RWMA; nl RV; nl LA; valves WNL MPI 2012 (dr mendes office): 4:40min Js; no STs, normal perfusion, normal EF unstable angina: -h/o remote "angina" no sx's x many yrs on meds -followed by dr mendes (cardio) for this -stress test ? 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 old AWMI pattern not present on prior here in 2013--resolved on repeat ecg--based on appearance, suspect lead placement erroneous on ER ecg -trop neg x 3 -CXR here with no chf, ? cardiomeg, no mediastinal widening (reviewed by me); no clinical signs chf -last stress test on file at dr mendes office was 2011 which was normal (the test was echo, not yet read)--will repeat persantine today (will not hold bb/ ccb, as the purpose is to define if her cp was ischemic etiology, which occurred despite her being on these meds) HTN: -bp stable -cont home meds sinus kaitlyn: -likely vagal related in pt with known OSMIN/obesity, mostly in bed here (most episodes during overnight/early am hours) -cont low dose metopr as she has tolerated this at home without sx's of conduction system dz -cont tele monitor HPL: -LDL good, HDL low -cont home tx, outpt f/u with dr mendes -wt loss DM: -per hospitalist OSMIN: -cont cpap
[2017-03-30] MEDS ORDERED: DIPYRIDAMOLE 50 MG/10 ML VIAL IVPB ONE (11:33)
[2017-03-30] MEDS ORDERED: DIPYRIDAMOLE STRESS TEST 50 MG in DEXTROSE 5%-WATER - 40 ML IVPB ONE (13:00)
[2017-03-30] MEDS: LEVOTHYROXINE NA 125 MCG TABLET (FP) PO SCH (14:23)
[2017-03-30] MEDS: PANTOPRAZOLE 40 MG TABLET (FP) PO SCH (14:23)
[2017-03-30] MEDS: amLODIPine BESYLATE 5 MG TABLET (FP) PO SCH (14:23)
[2017-03-30] MEDS: LOSARTAN POTASSIUM 50 MG TABLET (FP) PO SCH (14:23)
[2017-03-30] MEDS: METOPROLOL SUCCINATE 25 MG TAB.SR.24H (FP) PO SCH (14:28)
--- NOTE | 2017-03-30 17:24 | DS ---
Physical Exam: SUBJECTIVE: Patient seen and examined. She states she feels well, denies any more chest discomfort. Denies shortness of breath. OBJECTIVE: Vital Signs Period Temp Pulse Resp BP Sys/Choi Pulse Ox Last 24 Hr 97.6 F-98.2 F 48-66 16-20 126-151/69-85 96-98 PHYSICAL EXAM GENERAL: The patient is awake, alert, and fully oriented, in no acute distress. HEAD: Normal with no signs of trauma. EYES: PERRL, extraocular movements intact, sclera anicteric, conjunctiva clear. No ptosis. ENT: Ears normal, nares patent, oropharynx clear without exudates, moist mucous membranes. NECK: Trachea midline, full range of motion, supple. LUNGS: Breath sounds equal, clear to auscultation bilaterally, no wheezes, no crackles, no accessory muscle use. HEART: sinus bradycardia 59bpm ABDOMEN: Soft, nontender, nondistended, normoactive bowel sounds, no guarding, no rebound, no hepatosplenomegaly, no masses. EXTREMITIES: no edema. NEUROLOGICAL: Normal speech, gait not observed. PSYCH: Normal mood, normal affect. SKIN: Warm, dry, normal turgor, no rashes or lesions noted LABS Laboratory Results - last 24 hr 03/29/17 03/29/17 03/30/17 17:24 21:07 05:35 WBC 7.8 RBC 4.01 Hgb 11.2 Hct 34.1 MCV 84.9 MCHC 32.7 RDW 13.2 Plt Count 173 MPV 9.7 Neutrophils % 54.9 Lymphocytes % 37.1 Monocytes % 6.2 Eosinophils % 1.3 Basophils % 0.5 Sodium Potassium Chloride Carbon Dioxide Anion Gap BUN Creatinine Creat Clearance w eGFR POC Glucometer 184 224 Random Glucose Calcium Total Bilirubin AST ALT Alkaline Phosphatase Total Protein Albumin 03/30/17 03/30/17 03/30/17 05:35 06:05 15:39 WBC RBC Hgb Hct MCV MCHC RDW Plt Count MPV Neutrophils % Lymphocytes % Monocytes % Eosinophils % Basophils % Sodium 141 Potassium 3.6 Chloride 101 Carbon Dioxide 26 Anion Gap 14 BUN 22 H Creatinine 1.3 H Creat Clearance w eGFR 39.51 POC Glucometer 154 230 Random Glucose 154 H Calcium 9.0 Total Bilirubin 0.3 D AST 11 L ALT 18 Alkaline Phosphatase 57 Total Protein 6.6 Albumin 3.6 HOSPITAL COURSE: Date of Admission:03/28/17 Date of Discharge: 03/30/17 Patient is a 81 year old female with a significant past medical history of angina, diabetes mellitus, hypertension, hyperlipidemia, hypothyroidism and sleep apnea on home CPAP. She presented to the ED on 03/28/2017 with chest pain, shortness of breath and diaphoresis that began last night while attempting to go to sleep. She took 3 Nitro pills and the chest pain subsided. On exam, she was laying in the bed, in no acute distress. She appears comfortable at rest. She denies any chest pain or shortness of breath. Cardiology: Chest Pain/Rule out ACS - resolved Assessment/Plan: Troponin negative x 3 ASA 81mg daily Stress test negative with appropriate BP response Cleared by Cardiology to discharge Will need to follow up with her live hanger within 1 week after d/c Hypertension - chronic Assessment/Plan: Started on Imdur, Toprol stopped by Cardiology Monitor BP Hyperlipidemia: Assessment/Plan: Crestor 10mg PO @ HS Endocrine: Assessment/Plan: Resume home dose of Metformin Disposition: Discharge home with close cardiology follow up . Full Code. Minutes to complete discharge: 45 Discharge Summary Reason For Visit: CHEST PAIN AT REST Current Active Problems Chest pain at rest (Acute) Condition: Stable - Instructions Diet, Activity, Other Instructions: Please follow up with your PCP Jesus Todd [phone] and your Kalsominer: Dr. Paez at [facility] cardiology center on [facility] within 1 week after discharge. Please return to the ER with any persistent or worsening pain. Please do not take the Toprol. New medications: New medication of Isosorbide Mononitrate (Imdur) 30mg daily Crestor 10mg daily (increased from Crestor 5mg) Losartan (Cozaar) 100mg daily Disposition: HOME - Home Medications Comprehensive Discharge Medication List: Ambulatory Orders Amlodipine Besylate 5 mg PO DAILY 05/17/16 Ipratropium [place] [Atrovent] 2 puff NS ASDIR 05/17/16 Irbesartan 300 mg PO DAILY 05/17/16 Levothyroxine [Synthroid -] 125 mcg PO DAILY 05/17/16 Metformin HCl [Metformin HCl ER] 1,000 mg PO BID 05/17/16 Metoprolol Succinate [Toprol XL -] 25 mg PO DAILY 05/17/16 Nitroglycerin [Nitrostat] 0.4 mg SL ASDIR 05/17/16 Pantoprazole Sodium [Protonix] 40 mg PO DAILY 05/17/16 Rosuvastatin Calcium [Crestor] 5 mg PO DAILY 05/17/16 Levofloxacin [Levaquin -] 250 mg PO DAILY #7 tablet 12/24/16 Amlodipine Besylate 5 mg PO DAILY 03/28/17 Ipratropium B[place] [Atrovent Hfa] 12.9 gm IH PRN 03/28/17 This patient is new to me today: No Emergency Visit: Yes ED Registration Date: 03/28/17 Care time: The patient presented to the Emergency Department on the above date and was hospitalized for further evaluation of their emergent condition. Critical Care patient: No - Discharge Referral Referred to [facility] No
[2017-03-30 19:36] VITALS: BP 102/44; PULSE 58; TEMP 98
[2017-03-31] MEDS ORDERED: ISOSORBIDE MONONITRATE 30 MG TAB.SR.24H (FP) PO SCH (10:00)
== END 2017-03-30 18:45 | disposition home or self-care (01) ==
LOC: JER 02:14 → JERBED 05:16 → UNDOADMOB 05:36 → INTOOBSV 05:36 → JERBED 05:36 → J4W 08:47 → JERBED 08:47 → J4W 03-29 17:50
PROVIDERS: ADMIT Internal Medicine; ATTEND Nurse Practitioner Family
PROC: 3E033GC Introduction of Other Therapeutic Substance into Peripheral Vein, Percutaneous Approach (ICD-10-PCS; principal; 2017-03-28)
DX: I20.0 Unstable angina (principal); R07.89 Other chest pain; I10 Essential (primary) hypertension; E03.9 Hypothyroidism, unspecified; E11.9 Type 2 diabetes mellitus without complications; E78.5 Hyperlipidemia, unspecified; G47.30 Sleep apnea, unspecified; Z99.89 Dependence on other enabling machines and devices; Z90.710 Acquired absence of both cervix and uterus; R00.1 Bradycardia, unspecified; E66.9 Obesity, unspecified; Z68.39 Body mass index [BMI] 39.0-39.9, adult
CPT/HCPCS: 36415; 71010-TC; 78452-TC; 80048; 80053; 80061; 82550; 82553; 83721; 83735; 84100; 84443; 84484; 85025; 85610; 93005; 93010; 93017; 94660; 99284-25; A9502; G0378; J1245

== ENCOUNTER 2019-02-28 16:51 | Emergency (ER) | payer OTHER ==
[2019-02-28 17:51] VITALS: BP 144/57; PULSE 61; TEMP 97.9; BMI 40.7
--- NOTE | 2019-02-28 19:18 | PDOC ---
History of Present Illness - General Chief Complaint: Injury Stated Complaint: PAIN IN RIGHT LEG Time Seen by Provider: 02/28/19 18:08 History Source: Patient Exam Limitations: No Limitations - History of Present Illness Initial Comments: 02/28/19 19:11 83 year old female with medical history of DM, HTN, and a surgical history of hysterectomy and cholecystectomy presents with pain in right lower leg since Thursday. Patient states s/p fall in the house; loss balance but was able to stop herself from fall by leaning on the wall on Thursday. Reports increase in pain Thursday, and getting worse since then, preventing her from bearing weight on leg. States pain radiates down the extent of leg into toes. Denies numbness or tingling in toes. Occurred: reports: last week Severity: reports: mild Pain Location: reports: lower extremity Method of Injury: Yes: fall Modifying Factors: improves with: immobilization, pain medication Loss of Consciousness: no loss of consciousness Associated Symptoms (Fall): denies symptoms Past History - Travel Traveled outside of the country in the last 30 days: No Close contact w/someone who was outside of country & ill: No - Past Medical History Allergies/Adverse Reactions: Allergies Allergy/AdvReac Type Severity Reaction Status Date / Time No Known Allergies Allergy Verified 02/28/19 17:37 Home Medications: Ambulatory Orders Nitroglycerin [Nitrostat] 0.4 mg SL ASDIR 05/17/16 metFORMIN HCL [Metformin ER Osmotic] 1,000 mg PO BID 05/17/16 Isosorbide Mononitrate [Imdur -] 30 mg PO DAILY #30 tab 03/30/17 Rosuvastatin [Crestor -] 10 mg PO HS #30 tablet 03/30/17 Acetaminophen 500 mg PO QID #20 tablet 02/28/19 Levothyroxine Sodium [Levoxyl] 125 mcg PO DAILY 02/28/19 Losartan/Hydrochlorothiazide [Losartan-Hctz 100-25 mg Tab] 1 each PO DAILY 02/28 Naproxen [Naprosyn -] 500 mg PO BID #14 tablet 02/28/19 Cardiac Disorders: Yes (CAD) COPD: No Diabetes: Yes HTN: Yes Hypercholesterolemia: Yes - Surgical History Cholecystectomy: Yes - Immunization History Immunization Up to Date: Yes - Suicide/Smoking/Psychosocial Hx Smoking Status: No Smoking History: Never smoked Have you smoked in the past 12 months: No Number of Cigarettes Smoked Daily: 0 Hx Alcohol Use: No Drug/Substance Use Hx: No Hx Substance Use Treatment: No Trauma Specific PMHX - Complaint Specific PMHX Arthritis: No Back Injury: No Neck Injury: No Hx Sacro Iliac Joint Dysfunction: No Review of Systems - Review of Systems Able to Perform ROS?: Yes Is the patient limited Kyrgyz proficient: No Constitutional: No: Chills, Fever HEENTM: No: Nose Congestion, Throat Pain, Throat Swelling Respiratory: No: Orthopnea, Shortness of Breath, Productive cough Cardiac (ROS): No: Chest Pain, Palpitations ABD/GI: No: Nausea, Poor Appetite, Poor Fluid Intake, Abdominal cramping : No: Burning, Discharge, Incontinence Musculoskeletal: Yes: Joint Pain. No: Back Pain, Muscle Pain, Muscle Weakness Neurological: Yes: Numbness. No: Headache, Paresthesia, Weakness *Physical Exam - Vital Signs Last Vital Signs Temp Pulse Resp BP Pulse Ox 97.9 F 61 20 144/57 L 96 02/28/19 17:38 02/28/19 17:38 02/28/19 17:38 02/28/19 17:38 02/28/19 17:38 - Physical Exam General Appearance: Yes: Nourished, Appropriately Dressed. No: Apparent Distress HEENT: positive: CORINNE, TMs Normal, Pharynx Normal Neck: positive: Supple. negative: Lymphadenopathy (R), Lymphadenopathy (L) Respiratory/Chest: positive: Lungs Clear, Normal Breath Sounds Cardiovascular: positive: Regular Rhythm, Regular Rate Extremity: positive: Normal Capillary Refill Neurologic: positive: principal secretary II-XII NML intact, Fully Oriented Medical Decision Making - Medical Decision Making 02/28/19 19:20 83 year old female with medical history of DM, HTN, and a surgical history of hysterectomy and cholecystectomy presents with pain in right lower leg since Thursday Plan: xray of right lower leg analgesia *DC/Admit/Observation/Transfer Diagnosis at time of Disposition: Leg pain Qualifiers: Laterality: right Qualified Code(s): M79.604 - Pain in right leg Ankle sprain Qualifiers: Encounter type: initial encounter Involved ligament of ankle: unspecified ligament Laterality: right Qualified Code(s): S93.401A - Sprain of unspecified ligament of right ankle, initial encounter - Discharge Dispostion Disposition: HOME Condition at time of disposition: Good - Prescriptions Prescriptions: Acetaminophen 500 mg PO QID #20 tablet Naproxen [Naprosyn -] 500 mg PO BID #14 tablet - Referrals Referrals: Boone Tucker MD [Staff Physician] - 24 hours (call for appointment ) - Patient Instructions Printed Discharge Instructions: How to Prevent Falls Additional Instructions: Please use brace when up and walking, remove for rest Call primary physician for follow up appointment Call for follow up with orthopedic - Post Discharge Activity
[2019-02-28] MEDS ORDERED: ACETAMINOPHEN 500 MG TABLET (FP) PO ONE (20:33)
[2019-02-28] MEDS ORDERED: ACETAMINOPHEN 500 MG TABLET (FP) ONE (20:47)
== END 2019-02-28 20:52 | disposition home or self-care (01) ==
LOC: JERFT 16:51
PROC: 2W3QX3Z Immobilization of Right Lower Leg using Brace (ICD-10-PCS; principal; 2019-02-28)
PROC: 2W3QXYZ Immobilization of Right Lower Leg using Other Device (ICD-10-PCS; 2019-02-28)
DX: S93.401A Sprain of unspecified ligament of right ankle, initial encounter (principal); W18.39XA Other fall on same level, initial encounter; Y93.89 Activity, other specified; Y92.038 Other place in apartment as the place of occurrence of the external cause; Y99.8 Other external cause status; I25.10 Atherosclerotic heart disease of native coronary artery without angina pectoris; I10 Essential (primary) hypertension; E11.9 Type 2 diabetes mellitus without complications; Z79.84 Long term (current) use of oral hypoglycemic drugs; E78.5 Hyperlipidemia, unspecified
CPT/HCPCS: 29540; 73590-TC-RT-FY; 73610-TC-RT-FY; 73630-TC-RT-FY; 99281-25

== ENCOUNTER 2019-03-03 17:36 | Emergency (ER) | payer OTHER ==
[2019-03-03 17:58] VITALS: BP 151/73; PULSE 58; TEMP 98; BMI 39.8
--- NOTE | 2019-03-03 17:59 | PDOC ---
History of Present Illness - General Chief Complaint: Pain, Acute Stated Complaint: LEG PAIN Time Seen by Provider: 03/03/19 17:56 - History of Present Illness Initial Comments: 83yo F with PMH of DM, HTN, Sciatica presenting with right leg pain. Patient endorses burning pain x 1 month for which she was evaluated by her primary care physician and referred to see a specialist (unknown which type). Last Thursday , she suffered a fall because her knee gave out. Since Thursday evening, patient reports being unable to ambulate because of the pain. She was evaluated in this ED with imaging which did not show a fracture. Patient was given a leg brace, orthopedic follow-up, and prescription for naprosyn and tylenol. While tylenol has helped with her pain, the effect does not last very long. Her son brought her to the ED because she is unable to stand or walk without experiencing 10/10 pain. Patient has seen an orthopedist before who used to administer cortisone injections to her right knee, most recently several years ago. Endorses chronic back pain. Denies saddle anesthesia. Has had intermittent urinary incontinence over the past several months. No hemoptysis, no recent surgical history, no hormone use, no history of DVT or PE. Denies fevers, chills , chest pain, or shortness of breath. PCP: Dr Jesus Todd Orthopedist: Dr. Marks Past History - Past Medical History Allergies/Adverse Reactions: Allergies Allergy/AdvReac Type Severity Reaction Status Date / Time No Known Allergies Allergy Verified 03/03/19 17:54 Home Medications: Ambulatory Orders Nitroglycerin [Nitrostat] 0.4 mg SL ASDIR 05/17/16 metFORMIN HCL [Metformin ER Osmotic] 1,000 mg PO BID 05/17/16 Isosorbide Mononitrate [Imdur -] 30 mg PO DAILY #30 tab 03/30/17 Rosuvastatin [Crestor -] 10 mg PO HS #30 tablet 03/30/17 Acetaminophen 500 mg PO QID #20 tablet 02/28/19 Levothyroxine Sodium [Levoxyl] 125 mcg PO DAILY 02/28/19 Losartan/Hydrochlorothiazide [Losartan-Hctz 100-25 mg Tab] 1 each PO DAILY 02/28 Naproxen [Naprosyn -] 500 mg PO BID #14 tablet 02/28/19 Cardiac Disorders: Yes (CAD) COPD: No Diabetes: Yes HTN: Yes Hypercholesterolemia: Yes - Surgical History Cholecystectomy: Yes - Immunization History Immunization Up to Date: Yes - Suicide/Smoking/Psychosocial Hx Smoking Status: No Smoking History: Never smoked Have you smoked in the past 12 months: No Number of Cigarettes Smoked Daily: 0 Information on smoking cessation initiated: No Hx Alcohol Use: No Drug/Substance Use Hx: No Hx Substance Use Treatment: No Review of Systems - Review of Systems Comments:: Constitutional: no fever, no chills HEENT: no throat pain, no dysphagia Cardiovascular: no chest pain, no palpitations Respiratory: no cough, no shortness of breath Gastrointestinal: no abdominal pain, no nausea Genitourinary: no dysuria, no frequency Musculoskeletal: +leg pain, +back pain Skin: no rash, no itching Neurologic: no headache, no weakness *Physical Exam - Vital Signs Last Vital Signs Temp Pulse Resp BP Pulse Ox 98.0 F 58 L 16 151/73 100 03/03/19 17:40 03/03/19 17:40 03/03/19 17:40 03/03/19 17:40 03/03/19 17:40 - Physical Exam Comments: General: Awake, alert, and fully oriented, in no acute distress Head: No signs of trauma Eyes: EOMI, sclera anicteric ENT: Moist mucus membranes Neck: Normal ROM, supple Lungs: Lungs clear, Normal breath sounds Cardio: Regular rhythm, S1 and S2 present Abdomen: Soft, nontender. No guarding, no rebound, no masses Extremities: Normal range of motion, Distal pulses present SKIN: Warm, Dry, normal turgor Neurologic: Cranial nerves II through XII grossly intact. Normal speech. Back: Tender to palpation in upper lumbar area, midline, no step-offs/ deformities/fluctuance; no overlying wound or lesion; negative straight leg test bilaterally Right leg: neurovascularly intact, no rashes or lesion, no erythma or edema. Patient observed ambulating, however, complaining of 10/10 pain after taking 3 steps most focal to anteriomedial/lateral right lower leg. Only minor tenderness elicited upon palpation of these areas before patient ambulated. Medical Decision Making - Medical Decision Making 83 yo F with PMH of DM, HTN, Sciatica presenting with right lower leg pain. DDX including but not limited to sciatica, MSK, fracture, peripheral neuropathy , compartment syndrome, DVT Bedside US negative for DVT Formal Duplex US ordered for R. leg Radiographs of lumbar spine, R. hip and pelvis Lidocaine patch for lumbar spine Tramadol Patient's pain is most likely multi-factorial. Exam most consistent with sciatica and referred pain Patient signed out to Dr. Chen 03/03/19 19:17 *DC/Admit/Observation/Transfer Diagnosis at time of Disposition: Sciatic leg pain - Discharge Dispostion Disposition: HOME Condition at time of disposition: Stable - Referrals Referrals: ON STAFF,NOT [Primary Care Provider] - - Patient Instructions Printed Discharge Instructions: DI for Back Pain With Sciatica Additional Instructions: You were seen in the ED for complaints of R leg pain In the ED you were evaluated with imaging. Your results were unremarkable. There does not appear to be an acute need for immediate hospitalization. You are advised to follow up with your Primary Care Physician within 1 week. Return to the ED immediately if you experience worsening R leg pain, numbness, tingling, muscle weakness, urinary continence or retention. - Post Discharge Activity
--- NOTE | 2019-03-03 18:04 | PDOC ---
Attending Attestation - HPI HPI: The patient is an 83 year old female, with a significant PMH of coronary artery disease, diabetes, hypertension, hypercholesterolemia, arthritis, and sciatica, who presents to the emergency department today complaining of right leg pain for 1 month. Patient describes her pain as burning in her right knee that is a 10/10 in nature and is exacerbated with movement and standing. She also complains of low back pain, which radiates down to her right foot. Patient endorses falling 8 days ago after her right knee gave out, and notes her symptoms were exacerbated. She was seen in the ED 3 days ago, X-Ray was negative for right knee fracture and patient was discharged with Acetaminophen and Naproxen and advised to follow up with an orthopedist. Patient notes she has been struggling with right knee pain secondary to arthritis for the past couple of years, for which she has received numerous cortisone injections. LBM was yesterday and normal. The patient denies chest pain, shortness of breath, headache and dizziness. Denies fever, chills, nausea, vomit, diarrhea and constipation. Denies dysuria, frequency, urgency and hematuria. Denies previous diagnosis of diabetic neuropathy. Allergies: NKA Past surgical history: Hysterectomy and cholecystectomy Social history: No reported PCP: Dr. Abi Todd Orthopedist: Dr. Marks 03/03/19 19:13 - Physicial Exam PE: GENERAL: Awake, alert, and fully oriented, in no acute distress HEAD: No signs of trauma EYES: PERRLA, EOMI, sclera anicteric, conjunctiva clear ENT: Auricles normal inspection, hearing grossly normal, nares patent, oropharynx clear without exudates. Moist mucosa NECK: Normal ROM, supple, no lymphadenopathy, JVD, or masses. No C-spine tenderness to palpation. BACK: +Lower lumbar spine midline tenderness to palpation. +Right SI joint tenderness to palpation. No T-spine tenderness to palpation. No step-off. No deformities. No sign of cauda equina LUNGS: Breath sounds equal, clear to auscultation bilaterally. No wheezes, and no crackles HEART: Regular rate and rhythm, normal S1 and S2, no murmurs, rubs or gallops ABDOMEN: Soft, nontender, normoactive bowel sounds. No guarding, no rebound. No masses HIP: +Right lateral hip tenderness to palpation. Stable pelvis. Negative straight leg raise bilaterally. EXTREMITIES: +Right buttox tenderness to palpation that reproduces pain in sciatic form. +Tenderness to palpation of the right calf. +Pedal pulses intact. +5/5 muscle strength bilaterally of both the upper and lower extremities. + Sensation of bilateral upper and lower extremities intact. +Range of motion of lower extremities are equal. No edema. No clubbing or cyanosis. No cords, erythema. NEUROLOGICAL: Cranial nerves II through XII grossly intact. Normal speech, normal gait SKIN: Warm, Dry, normal turgor, no rashes or lesions noted. 03/03/19 19:41 - Medical Decision Making Bedside Ultrasound of right lower extremity was negative for DVT. EXAM#: TYPE/EXAM: RESULT: [id number] US/DUPLEX VASCUL US-1 LEG Right lower extremity pain. Rule out DVT Impression: There is no evidence of deep venous thromboses in the right lower extremity. Reported By: Sarah Torres MD 03/03/19 22:00 EXAM#: TYPE/EXAM: RESULT: [id number] RAD/SPINE-LUMBAR ONLY Status post fall. Rule out fracture. Impression: Compared to prior x-rays of the lumbar spine dated 05/17/2016 The height and alignment of the vertebral bodies appear unremarkable. Moderate degenerative disc disease at T12-L1 and L1-L2 level. Prominent anterior spondylosis in the lower thoracic spine down to L2 level. L3- L4 mild degenerative disc disease. No gross compression fracture or subluxation are identified. No paraspinal soft tissue abnormality seen. Air-filled bowel loops is suggestive of ileus. Status post cholecystectomy surgical metallic clips are present Reported By: Sarah Torres MD 03/03/19 22:26 EXAM#: TYPE/EXAM: RESULT: [id number] RAD/HIP PELVIS-RIGHT Status post fall. Rule out fracture. Impression: No gross fracture or dislocation are identified. Reported By: Sarah Torres MD 03/03/19 22:26 Documentation prepared by JORDAN Dunn, acting as medical record librarians teacher for Yovana Antonio DO. 03/03/19 22:33 <Heidi Gregory - Last Filed: 03/03/19 22:37> - Resident Resident Name: Alisha Payton - ED Attending Attestation I have performed the following: I have examined & evaluated the patient, The case was reviewed & discussed with the resident, I agree w/resident's findings & plan, Exceptions are as noted - Medical Decision Making 03/03/19 18:04 I, Dr. Yovana Antonio, DO, attest that this document has been prepared under my direction and personally reviewed by me in its entirety. I further attest, that it accurately reflects all work, treatment, procedures and medical decision -making performed by me. 03/03/19 19:24 a/p: 83yo female with fall a few days ago with R leg pain, also burning sensation in the leg x 1 month -midline L spine ttp, no stepoffs or deformities -R buttock ttp, concern for sciatic pain, also with paresthesias and burning sensation x 1 month- concern for diabetic neuropathy vs sciatica -no red flags -no weakness in the leg -calf ttp since hte fall, bedside ultrasound negative for acute dvt, formal study pending -will obtain xrays of her back and pelvis -tramadol for pain, lidoderm patch -will monitor and reassess 03/03/19 22:41 pt has been feeling much better ambulatory in the ED no dvt no acute fx discussed follow up with neuro, neurosx, ortho and pmd discussed pain control at home answered all questions. pt is stable for dc to home <Yovana Antonio - Last Filed: 03/03/19 22:42>
[2019-03-03] MEDS ORDERED: LIDOCAINE 5% TOPICAL PATCH TP ONE (18:47)
[2019-03-03] MEDS ORDERED: traMADol HCL 50 MG TABLET PO ONE (18:47)
[2019-03-03] MEDS ORDERED: traMADol HCL 50 MG TABLET ONE (18:56)
[2019-03-03] MEDS ORDERED: LIDOCAINE 5% TOPICAL PATCH ONE (18:56)
--- NOTE | 2019-03-03 19:24 | PDOC ---
*Physical Exam - Vital Signs Last Vital Signs Temp Pulse Resp BP Pulse Ox 98.0 F 58 L 16 151/73 100 03/03/19 17:40 03/03/19 17:40 03/03/19 17:40 03/03/19 17:40 03/03/19 17:40 Medical Decision Making - Medical Decision Making 03/03/19 19:24 Patient signed out by resident Dr. Payton. In short patient with history DM, HTN, Sciatica presenting with right lower leg pain most consistent with referred pain from sciatica. Will treat with lidocaine patch and ultram for pain pending US on RLE and XR of pelvis,R hip and lumbar spine ED Course: US: without evidence of DVT XR: no acute fracture. Patient stable for discharge. Informed of all lab and imaging results. Given follow up instructions and strict return precautions. Patient expressed understanding and agree to plan. *DC/Admit/Observation/Transfer Diagnosis at time of Disposition: Sciatic leg pain, Neuropathy - Discharge Dispostion Disposition: HOME Condition at time of disposition: Stable Decision to Admit order: No - Referrals Referrals: ON STAFF,NOT [Primary Care Provider] - Jsoh Marks MD [Staff Physician] - Wiley Santacruz MD [Staff Physician] - Yury Olivarez MD [Staff Physician] - - Patient Instructions Printed Discharge Instructions: DI for Back Pain With Sciatica, DI for Peripheral Neuropathy Additional Instructions: You were seen in the ED for complaints of R leg pain. In the ED you were evaluated with imaging and treated for pain. Your results were unremarkable. There does not appear to be an acute need for immediate hospitalization. You are advised to follow up with your Primary Care Physician within 1 week. You have a referral to Neurosurgery, Neurology, Orthopedics. Request that your Orthopedist inject viscous lubricant for knee pain. You have a prescription for Tramadol. Take Tylenol for pain relief and use Tramadol for break through pain. Ask your pharmacist for over the counter lidoderm patches Return to the ED immediately if you experience worsening R leg pain, numbness, tingling, muscle weakness, urinary continence or retention. - Post Discharge Activity
[2019-03-03] MEDS ORDERED: LIDOCAINE PATCH REMOVAL MC SCH (22:00)
== END 2019-03-03 23:30 | disposition home or self-care (01) ==
LOC: JER 17:36
PROC: B54BZZZ Ultrasonography of Right Lower Extremity Veins (ICD-10-PCS; principal; 2019-03-03)
DX: M54.31 Sciatica, right side (principal); G62.9 Polyneuropathy, unspecified; I25.10 Atherosclerotic heart disease of native coronary artery without angina pectoris; I10 Essential (primary) hypertension; E11.9 Type 2 diabetes mellitus without complications; Z79.84 Long term (current) use of oral hypoglycemic drugs; E78.00 Pure hypercholesterolemia, unspecified
CPT/HCPCS: 72100-TC-FY; 73523-TC-FY; 93971-TC; 99282-25

== ENCOUNTER 2019-03-04 15:57 | Inpatient (IN) | payer OTHER ==
--- NOTE | 2019-03-04 16:31 | PDOC ---
History of Present Illness - General Chief Complaint: Pain Stated Complaint: Shortness of Breath Time Seen by Provider: 03/04/19 16:31 - History of Present Illness Initial Comments: 03/04/19 16:50 The patient is an 83 year old female with a history of HTN, HLD, DM, CAD who presents for evaluation of right lower extremity pain. The patient is accompanied by family who assist in providing the history. They note that the patient has been experiencing right lower extremity pain worse with ambulation since a fall on 02/26/19. This is her 3rd visit to the ED for persistent symptoms. She reports an inability to ambulate secondary to pain since the onset of symptoms. She noted today severe pain when attempting to ambulate with associated shortness of breath and dizziness prompting her presentation to the ED for further evaluation. She has had prior xray and US imaging all negative thus far. She otherwise denies fevers, chills, chest pain, vomiting, abdominal pain, or changes with urination or bowel movements. Past History - Past Medical History Allergies/Adverse Reactions: Allergies Allergy/AdvReac Type Severity Reaction Status Date / Time No Known Allergies Allergy Verified 03/03/19 17:54 Home Medications: Ambulatory Orders Nitroglycerin [Nitrostat] 0.4 mg SL ASDIR 05/17/16 metFORMIN HCL [Metformin ER Osmotic] 1,000 mg PO BID 05/17/16 Isosorbide Mononitrate [Imdur -] 30 mg PO DAILY #30 tab 03/30/17 Rosuvastatin [Crestor -] 10 mg PO HS #30 tablet 03/30/17 Acetaminophen 500 mg PO QID #20 tablet 02/28/19 Levothyroxine Sodium [Levoxyl] 125 mcg PO DAILY 02/28/19 Losartan/Hydrochlorothiazide [Losartan-Hctz 100-25 mg Tab] 1 each PO DAILY 02/28 Naproxen [Naprosyn -] 500 mg PO BID #14 tablet 02/28/19 traMADol HCL [Ultram] 50 mg PO Q8H PRN #10 tablet MDD 3 tabs 03/03/19 Cardiac Disorders: Yes (CAD) COPD: No Diabetes: Yes HTN: Yes Hypercholesterolemia: Yes - Surgical History Cholecystectomy: Yes - Immunization History Immunization Up to Date: Yes - Suicide/Smoking/Psychosocial Hx Smoking Status: No Smoking History: Never smoked Have you smoked in the past 12 months: No Number of Cigarettes Smoked Daily: 0 Information on smoking cessation initiated: No Hx Alcohol Use: No Drug/Substance Use Hx: No Hx Substance Use Treatment: No Review of Systems - Review of Systems Comments:: 03/04/19 17:01 Constitutional: No fevers, chills, fatigue, malaise HEENT: No Rhinorrhea, nasal congestion, visual changes Cardiovascular: No chest pain, syncope, palpitations, lightheadedness Respiratory: SOB. No Cough, Hemoptysis, Gastrointestinal: No Abdominal pain, Nausea, Vomiting, Constipation, Diarrhea, Melena Genitourinary: No Dysuria, Frequency, Urgency, Hesitancy, Hematuria, Flank pain Musculoskeletal: Right lower extremity pain. No Myalgia, arthralgia Skin: No rashes, itching, bruising, pallor Neurologic: Dizziness. No Headache, Numbness, Weakness, or Tingling Psychiatric: No Hallucinations. No SI or HI *Physical Exam - Vital Signs Last Vital Signs Temp Pulse Resp BP Pulse Ox 98.8 F 50 L 22 H 170/62 93 L 03/04/19 16:07 03/04/19 16:07 03/04/19 16:07 03/04/19 16:07 03/04/19 16:07 - Physical Exam Comments: 03/04/19 17:01 General Appearance: Nourished. No Apparent Distress HEENT: EOMI, CORINNE. No Pharyngeal Erythema, Tonsillar Exudate, Tonsillar Erythema Neck: No Cervical Lymphadenopathy Respiratory/Chest: Lungs Clear, Normal Breath Sounds. No Crackles, Rales, Rhonchi, Wheezing Cardiovascular: Regular Rhythm, Regular Rate. No Murmur, Gallops, Rubs Gastrointestinal/Abdominal: Normal Bowel Sounds, Soft. No Guarding, Rebound, Tenderness Musculoskeletal: No CVA Tenderness Extremity: Pain with active movement of the right lower extremity. No Tenderness to palpation. Normal Capillary Refill Integumentary: Normal Color, Dry, Warm Neurologic: bottom loader II-XII NML intact, Fully Oriented, Alert, Normal Mood/Affect, Normal Response, ED Treatment Course - LABORATORY CBC & Chemistry Diagram: 03/04/19 16:46 03/05/19 06:30 Medical Decision Making - Medical Decision Making 03/04/19 17:03 The patient is an 83 year old female with a history of HTN, HLD, DM, CAD who presents for evaluation of right lower extremity pain. Given the patient's history and physical exam, we will obtain a cbc, cmp, head ct, lower extremity ct to evaluate further. Given the patient's frequent representations and continued pain with an inability to ambulate, she will likely require admission for physical therapy evaluation and further management. We will continue to monitor and reassess while here in the ED. 03/04/19 18:42 CBC, CMP are unremarkable. Patient signed out to the night team pending head and lower extremity ct and reassessment. *DC/Admit/Observation/Transfer Diagnosis at time of Disposition: Leg pain - Discharge Dispostion Condition at time of disposition: Fair - Referrals - Patient Instructions - Post Discharge Activity
--- NOTE | 2019-03-04 17:06 | PDOC ---
Attending Attestation - HPI HPI: The patient is an 83 year old female, with a significant PMH of coronary artery disease, diabetes, hypertension, hypercholesterolemia, arthritis, and sciatica, who presents to the emergency department today complaining of right leg pain for 1 week, and dizziness and shortness of breath for one day. Patient endorses falling one week ago after her right knee gave out (secondary to her arthritis), and has had pain with ambulation since. She notes that the pain radiates from her right calf down to her right foot. Patient has been seen in the ED two times for this issue, yesterday being her most recent visit. Previous X-Ray was negative for right knee fracture, and US was negative for DVT. Patient was discharged with Tramadol and advised to follow up with an orthopedist. Patient notes she has been struggling with right knee pain secondary to arthritis for the past couple of years, for which she has received numerous cortisone injections. Patient returns to the ED today for new onset dizziness and shortness of breath. She notes she began experiencing room- spinning dizziness while eating soup during lunch. Patient also endorses feeling short of breath at that time. Patient had her granddaughter measure her blood pressure at that time, and it was 209/99. The patient denies chest pain and headache. Denies fever, chills, nausea, vomit, diarrhea and constipation. Denies dysuria, frequency, urgency and hematuria. Denies previous diagnosis of diabetic neuropathy. Allergies: NKA Past surgical history: Hysterectomy and cholecystectomy Social history: No reported PCP: Dr. Abi Todd Orthopedist: Dr. Marks 03/04/19 17:49 - Physicial Exam PE: GENERAL: The patient is in no acute distress. HEAD: Normal with no signs of trauma. EYES: PERRLA, EOMI, sclera anicteric, conjunctiva clear. ENT: Ears normal, nares patent, oropharynx clear without exudates. Moist mucous membranes. NECK: Normal range of motion, supple without lymphadenopathy, JVD, or masses. LUNGS: Breath sounds equal, clear to auscultation bilaterally. No wheezes, and no crackles. HEART:Regular rate and rhythm, normal S1 and S2 without murmur, rub or gallop. ABDOMEN: Soft, nontender, normoactive bowel sounds. No guarding, no rebound. No masses palpable. EXTREMITIES: Normal range of motion, no edema. No clubbing or cyanosis. No erythema, or tenderness. NEUROLOGICAL: Cranial nerves II through XII grossly intact. Normal speech. No focal neurological deficits. MUSCULOSKELETAL: Back non-tender to palpation, no CVA tenderness 03/04/19 17:49 - Medical Decision Making EXAM#: TYPE/EXAM: RESULT: [id number] CT/HEAD CT WITHOUT CONTRAST Dizziness. Impression: No significant interval change. Mild volume loss without evidence of acute intracranial pathology. Reported By: Sarah Torres MD 03/04/19 19:33 Documentation prepared by JORDAN Dunn, acting as medical device for Cassandra Hester MD. 03/04/19 19:41 <Heidi Gregory - Last Filed: 03/04/19 19:41> - Resident Resident Name: Reno Pires - ED Attending Attestation I have performed the following: I have examined & evaluated the patient, The case was reviewed & discussed with the resident, I agree w/resident's findings & plan, Exceptions are as noted - Medical Decision Making 03/04/19 16:57 83 yo F h/o HTN and sciatica s/p fall more than 1 week ago with persistent right leg pain Pt has now come to the ER 3 times for this Today she notes that despite the tramadol, her pain has persisted AND she became vertiginous This lasted 30 minutes and was associated with a BP of 200/99 Pt took her home blood pressure medication this morning at 8am She last took Tramadol at 10:30am No associated headache, chest pain, palpitations No fevers No nausea, vomiting, diarrhea Symptoms have improved now 03/04/19 18:36 Laboratory Tests 03/30/17 03/04/19 03/04/19 05:35 16:46 17:34 WBC 7.1 Hgb 12.6 Hct 39.0 Plt Count 214 D BUN 22 H 26 H Creatinine 1.3 H 1.3 03/04/19 19:51 CT head neg 03/04/19 21:21 CT LE - arthritic changes Case reviewed with hospitalist They will assess her <Cassandra Hester - Last Filed: 03/04/19 22:10>
[2019-03-04 18:19] LABS: BASO % 0.6 % (0-2.0); EOS % 1.3 % (0-4.5); HEMOGLOBIN 12.6 GM/dL (10.7-15.3); MCH 27.8 pg (25.7-33.7); MCHC 32.2 g/dl (32.0-36.0); MEAN CELL VOLUME 86.4 fl (80-96); MEAN PLT VOLUME 9.7 fl (7.5-11.1); MONO % 7.1 % (3.8-10.2); PLATELET COUNT 214 K/MM3 (134-434); RBC 4.52 M/mm3 (3.60-5.2); RDW 14.5 % (11.6-15.6); WHITE BLOOD COUNT 7.1 K/mm3 (4.0-10.0)
[2019-03-04 18:30] LABS: ALBUMIN 4.1 g/dl (3.4-5.0); ALK PHOS 58 U/L (45-117); ANION GAP 6 MMOL/L (8-16); BILIRUBIN,TOTAL 0.3 mg/dL (0.2-1); BLOOD UREA NITROGEN 26 mg/dL (7-18); CALCIUM 8.7 mg/dL (8.5-10.1); CHLORIDE 101 mmol/L (98-107); CO2 29 mmol/L (21-32); CREATININE 1.3 mg/dL (0.55-1.3); GLUCOSE,RANDOM 145 mg/dL (74-106); POTASSIUM 4.4 mmol/L (3.5-5.1); SGOT/AST 30 U/L (15-37); SGPT/ALT 26 U/L (13-61); SODIUM 137 mmol/L (136-145); TOT PROT 7.7 g/dl (6.4-8.2)
--- NOTE | 2019-03-04 19:26 | PDOC ---
*Physical Exam - Vital Signs Last Vital Signs Temp Pulse Resp BP Pulse Ox 98.8 F 50 L 22 H 170/62 93 L 03/04/19 16:07 03/04/19 16:07 03/04/19 16:07 03/04/19 16:07 03/04/19 16:07 ED Treatment Course - LABORATORY CBC & Chemistry Diagram: 03/04/19 16:46 03/04/19 17:34 - ADDITIONAL ORDERS Additional order review: Laboratory Results 03/04/19 17:34 Sodium 137 Potassium 4.4 Chloride 101 Carbon Dioxide 29 Anion Gap 6 L BUN 26 H Creatinine 1.3 Creat Clearance w eGFR 39.31 Random Glucose 145 H Calcium 8.7 Total Bilirubin 0.3 AST 30 ALT 26 Alkaline Phosphatase 58 Total Protein 7.7 Albumin 4.1 03/04/19 16:46 RBC 4.52 MCV 86.4 MCHC 32.2 RDW 14.5 MPV 9.7 Neutrophils % 69.0 D Lymphocytes % 22.0 D Monocytes % 7.1 Eosinophils % 1.3 Basophils % 0.6 Medical Decision Making - Medical Decision Making 03/04/19 19:23 Patient signed out by resident Dr. Pires In short patient is an 83 year old with persistent R lower limb pain visiting the ED 3 times in 1 week, last seen 1 day ago and treated with ultram rx and lidocaine patch and follow up with a negative US and XR. CT lower extremity exhibits R and L hip degenerative changes Likely patient will require admission and physical therapy consult due to intractable pain and inability to ambulate ED Course: *DC/Admit/Observation/Transfer Diagnosis at time of Disposition: Leg pain - Discharge Dispostion Condition at time of disposition: Fair Decision to Admit order: Yes - Referrals - Patient Instructions - Post Discharge Activity
[2019-03-04] MEDS ORDERED: traMADol HCL 50 MG TABLET PO ONE (21:28)
--- NOTE | 2019-03-04 21:30 | HP ---
CHIEF COMPLAINT: PCP: HISTORY OF PRESENT ILLNESS: This is an 83 yo F with PMH of HTN, HLD, DM, CAD who presents with intractable RLE pain. This is the 3rd time patient presents due to this pain s/p mechanical fall 02/26/19. pain is worse with ambulation and patient ambulates with difficulty. she was prescribed tramadol yesterday in ED with relief of symptoms , however, she is unable to tolerate it well due to dizziness. She had multiple images of her RLE including x rays and CT, none of which sowed acute pathology. Of note, patient initially presented with dizziness and BP 209/99, which spontaneously improved. Patient lives with family and has daily help. Denies fevers, chills, chest pain, vomiting, abdominal pain, or changes with urination or bowel movements. ER course was notable for: (1) ct RLE, head ct (2)labs Recent Travel: denies PAST MEDICAL HISTORY: as above PAST SURGICAL HISTORY: as above Social History: Smoking: denies Alcohol:denies Drugs: denies Family History: noncontributory Allergies No Known Allergies Allergy (Verified 03/03/19 17:54) HOME MEDICATIONS: Home Medications Medication Instructions Recorded Nitroglycerin [Nitrostat] 0.4 mg SL ASDIR 05/17/16 metFORMIN HCL [Metformin ER 1,000 mg PO BID 05/17/16 Osmotic] Isosorbide Mononitrate [Imdur -] 30 mg PO DAILY #30 tab 03/30/17 Rosuvastatin [Crestor -] 10 mg PO HS #30 tablet 03/30/17 Acetaminophen 500 mg PO QID #20 tablet 02/28/19 Levothyroxine Sodium [Levoxyl] 125 mcg PO DAILY 02/28/19 Losartan/Hydrochlorothiazide 1 each PO DAILY 02/28/19 [Losartan-Hctz 100-25 mg Tab] Naproxen [Naprosyn -] 500 mg PO BID #14 tablet 02/28/19 traMADol HCL [Ultram] 50 mg PO Q8H PRN #10 tablet MDD 3 03/03/19 tabs REVIEW OF SYSTEMS CONSTITUTIONAL: Absent: fever, chills HEENT: Absent: rhinorrhea, nasal congestion, throat pain CARDIOVASCULAR: Absent: chest pain, syncope, palpitations RESPIRATORY: Absent: cough, shortness of breath GASTROINTESTINAL: Absent: abdominal pain, abdominal distension, nausea, vomiting, diarrhea, constipation GENITOURINARY: Absent: dysuria MUSCULOSKELETAL: Absent: back pain, neck pain SKIN: Absent: rash, itching, pallor HEMATOLOGIC/IMMUNOLOGIC: Absent: easy bleeding, easy bruising ENDOCRINE: Absent: unexplained weight gain, unexplained weight loss NEUROLOGIC: Absent: headache, focal weakness or paresthesias PSYCHIATRIC: Absent: anxiety, depression PHYSICAL EXAMINATION Vital Signs - 24 hr 03/04/19 16:07 Temperature 98.8 F Pulse Rate 50 L Respiratory 22 H Rate Blood Pressure 170/62 O2 Sat by Pulse 93 L Oximetry (%) GENERAL: Awake, alert, and fully oriented, in no acute distress. HEAD: Normal with no signs of trauma. EYES: Pupils equal, round and reactive to light, extraocular movements intact, sclera anicteric, conjunctiva clear. EARS, NOSE, THROAT: Moist mucous membranes. NECK: supple LUNGS: Breath sounds equal, clear to auscultation bilaterally. HEART: Regular rate and rhythm, normal S1 and S2 ABDOMEN: Soft, nontender, not distended, normoactive bowel sounds, no guarding, no rebound, no masses. MUSCULOSKELETAL: No CVA tenderness. UPPER EXTREMITIES: 2+ pulses, warm, well-perfused. No peripheral edema. LOWER EXTREMITIES: 2+ pulses, warm, well-perfused. No calf tenderness. tender over anteror and lateral R mazariegos and R foor dorsum. No peripheral edema. no erythema NEUROLOGICAL: Cranial nerves II-XII grossly intact. Normal speech. LE strength 5/5, 1+ patellar and achiles reflexes, sensationintact, PSYCHIATRIC: Cooperative. Good eye contact. Appropriate mood and affect. SKIN: Warm, dry Laboratory Results - last 24 hr 03/04/19 03/04/19 03/04/19 16:46 17:34 19:20 WBC 7.1 RBC 4.52 Hgb 12.6 Hct 39.0 MCV 86.4 MCH 27.8 MCHC 32.2 RDW 14.5 Plt Count 214 D MPV 9.7 Absolute Neuts (auto) 4.9 Neutrophils % 69.0 D Lymphocytes % 22.0 D Monocytes % 7.1 Eosinophils % 1.3 Basophils % 0.6 Nucleated RBC % 0 Sodium 137 Potassium 4.4 Chloride 101 Carbon Dioxide 29 Anion Gap 6 L BUN 26 H Creatinine 1.3 Creat Clearance w eGFR 39.31 Random Glucose 145 H Calcium 8.7 Total Bilirubin 0.3 AST 30 ALT 26 Alkaline Phosphatase 58 Troponin I < 0.02 Total Protein 7.7 Albumin 4.1 ASSESSMENT/PLAN: This is an 83 yo F with PMH of HTN, HLD, DM, CAD who presents with intractable RLE pain. intractable RLE pain HTN urgency HLD DM CAD -admit for pain management: tylenol + oxycodone -PT eval, RLE MRI -BP improved spontaneously, was possibly elevated due to pain/stress. continue home imdur, losartan, hctz -norvasc 5 now for BP -continue crestor -continue synthroid -continue metformin Problem List - Problem (1) Hypertensive urgency Code(s): I16.0 - HYPERTENSIVE URGENCY (2) Leg pain Code(s): M79.606 - PAIN IN LEG, UNSPECIFIED (3) Fall Code(s): W19.XXXA - UNSPECIFIED FALL, INITIAL ENCOUNTER Qualifiers: Encounter type: initial encounter Qualified Code(s): W19.XXXA - Unspecified fall, initial encounter Visit type - Emergency Visit Emergency Visit: Yes ED Registration Date: 03/04/19 Care time: The patient presented to the Emergency Department on the above date and was hospitalized for further evaluation of their emergent condition. - New Patient This patient is new to me today: Yes Date on this admission: 03/04/19 - Critical Care Critical Care patient: No
[2019-03-04] MEDS ORDERED: ACETAMINOPHEN 325 MG TABLET (FP) PO ONE (21:33)
[2019-03-04] MEDS ORDERED: oxyCODONE HCL 5 MG TABLET PO PRN (21:34)
--- NOTE | 2019-03-04 21:39 | PN ---
Teaching Attending Note Name of Resident: Kristy Bernstein ATTENDING PHYSICIAN STATEMENT I saw and evaluated the patient. I reviewed the resident's note and discussed the case with the resident. I agree with the resident's findings and plan as documented. SUBJECTIVE: Patient is an 83 year old woman with a PMH of CAD, NIDDM, hypertension, hypercholesterolemia, sleep apnea, arthritis, and sciatica, who presents to the ER today complaining of right leg pain for 1 week, and dizziness and shortness of breath for one day. Patient fell one week ago after her right knee gave out ( secondary to her arthritis), and has had pain with ambulation since. She notes that the pain radiates from her right calf down to her right foot. Patient has been seen in the ER two times for this issue, yesterday being her most recent visit. Previous X-Ray was negative for right knee fracture, and US was negative for DVT. Patient was discharged with Tramadol and advised to follow up with an orthopedist. Patient notes she has been struggling with right knee pain secondary to arthritis for the past couple of years, for which she has received numerous cortisone injections. Patient returns to the ER today for new onset dizziness and shortness of breath. She notes she began experiencing room-spinning dizziness while eating soup during lunch. Patient also endorses feeling short of breath at that time. Patient had her granddaughter measure her blood pressure at that time, and it was 209/99. Patient denies chest pain, headache, fever, chills, nausea, vomit, change in bowel habit, dysuria, frequency, urgency and hematuria. OBJECTIVE: Alert Vital Signs Period Temp Pulse Resp BP Sys/Choi Pulse Ox Last 24 Hr 98.0 F-98.8 F 50-58 16-22 170-181/62-66 93-100 HEENT: No Jaundice, eye redness or discharge, PERRLA, EOMI. Normocephalic, atraumatic. External ears are normal and hearing is grossly intact. No nasal discharge. Neck: Supple, nontender. No palpable adenopathy or thyromegaly. No JVD Chest: Good effort. Clear to auscultation and percussion. Heart: Regular. No S3, rub or murmur Abdomen: Not distended, soft, nontender and no HSM. No rebound or guarding. Normal bowel sounds. Ext: Peripheral pulses intact. No leg edema. Tender right mazariegos and dorsum of right foot. Skin: Warm and dry. No petechiae, rash or ecchymosis. Neuro: Alert. Oriented x3. CN 2-12 grossly intact. Sensation grossly intact in all four extremities and DTR are symmetric. Psych: Appropriate mood and affect. Good insight. Current Medications Generic Name Dose Route Start Last Admin Trade Name Freq PRN Reason Stop Dose Admin Acetaminophen 650 mg 03/04/19 21:34 Tylenol - PO Q4H PRN PAIN SCALE 1-5 Oxycodone HCl 5 mg 03/04/19 21:45 Roxicodone - PO 03/04/19 21:46 ONCE ONE Oxycodone HCl 5 mg 03/04/19 21:34 Roxicodone - PO Q4H PRN PAIN LEVEL 6-10 Home Medications Medication Instructions Recorded Nitroglycerin [Nitrostat] 0.4 mg SL ASDIR 05/17/16 metFORMIN HCL [Metformin ER 1,000 mg PO BID 05/17/16 Osmotic] Isosorbide Mononitrate [Imdur -] 30 mg PO DAILY #30 tab 03/30/17 Rosuvastatin [Crestor -] 10 mg PO HS #30 tablet 03/30/17 Acetaminophen 500 mg PO QID #20 tablet 02/28/19 Levothyroxine Sodium [Levoxyl] 125 mcg PO DAILY 02/28/19 Losartan/Hydrochlorothiazide 1 each PO DAILY 02/28/19 [Losartan-Hctz 100-25 mg Tab] Naproxen [Naprosyn -] 500 mg PO BID #14 tablet 02/28/19 traMADol HCL [Ultram] 50 mg PO Q8H PRN #10 tablet MDD 3 03/03/19 tabs Abnormal Lab Results 03/04/19 17:34 Anion Gap 6 L BUN 26 H Random Glucose 145 H ASSESSMENT AND PLAN: 1. Fall/RLE pain/Difficulty with ambulation - Patient ambulating gingerly and getting oral medication for uncontrolled hypertension. SOB complaint may be related to sleep apnea. No acute abnormality on head CT and CT of RLE showed degenerative changes in the knee but no fracture. Head CT was done by ER staff because of her complaint of dizziness on arrival. Will get MRI of RLE and CXR. Will use warm compress, oxycodone, topical analgesics and lidocaine patch for pain control. Give bowel regimen and night time CPAP. Implement fall precautions. Consult Ortho and PT. 2. DM For now, we will hold the home diabetes drugs and implement sliding scale insulin regimen. Provide comprehensive diabetes care with patient teaching and counseling about the importance of adherence to prescribed diabetes regimen, euglycemia, eye care and foot care. 3. Obesity Counseled on the risks associated with obesity. Will provide patient all the necessary assistance, counseling and positive reinforcement to facilitate weight loss. Consult equipment lead. 4. Uncontrolled Hypertension - Restart outpatient antihypertensive drugs and revise regimen to ensure smooth [id number] good BP control. Nonpharmacologic measures to control hypertension like weight loss, salt restriction and exercise discussed. 5. DVT prophylaxis - Lovenox 40 mg SQ q 24 hours. 6. Advance directives - Full code
[2019-03-04] MEDS ORDERED: oxyCODONE HCL 5 MG TABLET PO ONE (21:45)
[2019-03-04] MEDS ORDERED: NITROGLYCERIN SUBLINGUAL 1/150 0.4 MG TAB SL PRN (22:00)
[2019-03-04] MEDS ORDERED: amLODIPine BESYLATE 5 MG TABLET (FP) PO ONE (22:30)
[2019-03-04] MEDS: ROSUVASTATIN CA 10 MG TABLET (FP) PO SCH (22:34)
[2019-03-04] MEDS ORDERED: amLODIPine BESYLATE 5 MG TABLET (FP) ONE (22:39)
[2019-03-05] MEDS: LEVOTHYROXINE NA 125 MCG TABLET (FP) PO SCH (07:30)
[2019-03-05] MEDS ORDERED: ACETAMINOPHEN 325 MG TABLET (FP) ONE (07:52)
[2019-03-05] MEDS ORDERED: oxyCODONE HCL 5 MG TABLET ONE (07:52)
[2019-03-05] MEDS: ACETAMINOPHEN 325 MG TABLET (FP) PO PRN (08:00)
[2019-03-05 08:32] LABS: ANION GAP 7 MMOL/L (8-16); BLOOD UREA NITROGEN 28 mg/dL (7-18); CALCIUM 9.1 mg/dL (8.5-10.1); CHLORIDE 100 mmol/L (98-107); CO2 29 mmol/L (21-32); CREATININE 1.1 mg/dL (0.55-1.3); GLUCOSE,RANDOM 132 mg/dL (74-106); PHOSPHOROUS 3.1 mg/dL (2.5-4.9); POTASSIUM 3.8 mmol/L (3.5-5.1); SODIUM 136 mmol/L (136-145)
[2019-03-05] MEDS: metFORMIN HCL 500 MG TABLET (FP) PO SCH ×2 (08:52→16:41)
[2019-03-05] MEDS: HYDROCHLOROTHIAZIDE 25 MG TABLET (FP) PO SCH (10:30)
[2019-03-05] MEDS: LOSARTAN POTASSIUM 50 MG TABLET (FP) PO SCH (10:30)
[2019-03-05] MEDS: ISOSORBIDE MONONITRATE 30 MG TAB.SR.24H (FP) PO SCH (10:31)
--- NOTE | 2019-03-05 13:14 | PN ---
Physical Exam: SUBJECTIVE: Patient seen and examined,still with right leg pain. Reports pain from right lower back radiating down right leg upto toes burning sharp, with improvement with pain medications. Denies any abdominal or urinary symptoms, weakness or new concerns. OBJECTIVE: Vital Signs Period Temp Pulse Resp BP Sys/Choi Pulse Ox Last 24 Hr 97.9 F-98.8 F 50-103 16-22 127-181/38-72 93-100 GENERAL: lying in bed in no acute distress Neck: soft, supple, no JVD CVS:S1S2 regular Chest: no rales or wheezing Abdomen: soft, obese, NT Extremities: no edema Musculoskeletal: tenderness over right buttock and right paraspinal area in the lumbar region, vague spinal tenderness in lower thoracic region, leg raising RLE upt 50 degrees, limited by pain, LLE upto 60 degrees, positive pulses, power 5/5 Laboratory Results - last 24 hr 03/04/19 03/04/19 03/04/19 16:46 17:34 19:20 WBC 7.1 RBC 4.52 Hgb 12.6 Hct 39.0 MCV 86.4 MCH 27.8 MCHC 32.2 RDW 14.5 Plt Count 214 D MPV 9.7 Absolute Neuts (auto) 4.9 Neutrophils % 69.0 D Lymphocytes % 22.0 D Monocytes % 7.1 Eosinophils % 1.3 Basophils % 0.6 Nucleated RBC % 0 Sodium 137 Potassium 4.4 Chloride 101 Carbon Dioxide 29 Anion Gap 6 L BUN 26 H Creatinine 1.3 Creat Clearance w eGFR 39.31 POC Glucometer Random Glucose 145 H Calcium 8.7 Phosphorus Magnesium Total Bilirubin 0.3 AST 30 ALT 26 Alkaline Phosphatase 58 Troponin I < 0.02 Total Protein 7.7 Albumin 4.1 TSH 03/05/19 03/05/19 06:30 08:06 WBC RBC Hgb Hct MCV MCH MCHC RDW Plt Count MPV Absolute Neuts (auto) Neutrophils % Lymphocytes % Monocytes % Eosinophils % Basophils % Nucleated RBC % Sodium 136 Potassium 3.8 Chloride 100 Carbon Dioxide 29 Anion Gap 7 L BUN 28 H Creatinine 1.1 Creat Clearance w eGFR 47.67 POC Glucometer 127 Random Glucose 132 H Calcium 9.1 Phosphorus 3.1 Magnesium 2.0 Total Bilirubin AST ALT Alkaline Phosphatase Troponin I Total Protein Albumin TSH 12.00 H Active Medications Generic Name Dose Route Start Last Admin Trade Name Freq PRN Reason Stop Dose Admin Acetaminophen 650 mg 03/04/19 21:34 03/05/19 08:00 Tylenol - PO 650 mg Q4H PRN Administration PAIN SCALE 1-5 Gabapentin 100 mg 03/05/19 14:00 Neurontin - PO TID [facility] Hydrochlorothiazide 25 mg 03/05/19 10:00 03/05/19 10:30 Hctz - PO 25 mg DAILY [facility] Administration Insulin Aspart 1 vial 03/05/19 16:30 Novolog Vial Sliding Scale - SQ ACHS [facility] Protocol Isosorbide Mononitrate 30 mg 03/05/19 10:00 03/05/19 10:31 Imdur - PO 30 mg DAILY [facility] Administration Levothyroxine Sodium 125 mcg 03/05/19 07:00 03/05/19 07:30 Synthroid - PO 125 mcg AM [facility] Administration Lidocaine 1 patch 03/05/19 13:00 Lidoderm Patch - TP DAILY [facility] Losartan Potassium 100 mg 03/05/19 10:00 03/05/19 10:30 Cozaar - PO 100 mg DAILY [facility] Administration Metformin HCl 1,000 mg 03/05/19 07:00 03/05/19 08:52 Glucophage - PO 1,000 mg BID@0700,1630 [facility] Administration Miscellaneous 1 each 03/05/19 22:00 Lidoderm Patch Removal MC DAILY@2200 [facility] Rosuvastatin Calcium 10 mg 03/04/19 22:00 03/04/19 22:34 Crestor - PO 10 mg HS [facility] Administration Home Medications Medication Instructions Recorded Nitroglycerin [Nitrostat] 0.4 mg SL ASDIR 05/17/16 metFORMIN HCL [Metformin ER 1,000 mg PO BID 05/17/16 Osmotic] Isosorbide Mononitrate [Imdur -] 30 mg PO DAILY #30 tab 03/30/17 Rosuvastatin [Crestor -] 10 mg PO HS #30 tablet 03/30/17 Acetaminophen 500 mg PO QID #20 tablet 02/28/19 Levothyroxine Sodium [Levoxyl] 125 mcg PO DAILY 02/28/19 Losartan/Hydrochlorothiazide 1 each PO DAILY 02/28/19 [Losartan-Hctz 100-25 mg Tab] Naproxen [Naprosyn -] 500 mg PO BID #14 tablet 02/28/19 traMADol HCL [Ultram] 50 mg PO Q8H PRN #10 tablet MDD 3 03/03/[address] LE results reviewed Lspine and hip/pelvis xrays results reviewed ASSESSMENT/PLAN: 83 yof with PMHx of CAD/angina, HTN, HLD, NIDDM, osteoarthritis, hypothyroidism , with fall about a week ago, recently seen in the ED on 03/03 with RLE pain, d/ jane on tramadol comes back with ongoing pain and dizziness after taking tramadol. -RLE pain, sharp shooting burning from back, suspect lumbar radiculopathy with associated muscle spasm, less likely from hip/knee related arthritis -Dizziness, suspect medication incuded -HTN -HLD -CAD/angina -NIDDM -Hypothyroidism -Osteoarthritis Plan: Avoid narcotics. Start gabapentin 100 mg TID. Lidocaine patch. tylenol prn. NSAIDs standing with PPI. Low dose flexeril prn for muscle spasms PT eval. Thoracic MRI from 2013 with degenerative disc disease,likely exacerbated by recent fall. Additional imaging and medrol dose pack trial if fails to improve. Continue losartan/HCTZ. Metformin, ISS, diabetic diet. TSH noted, follow up Free T4. Continue levothyroxine. DVTPPX heparin Dispo in 24 hours pending PT eval and clinical improvement. Plan discussed with patient, all questions answered. Visit type - Emergency Visit Emergency Visit: Yes ED Registration Date: 03/04/19 Care time: The patient presented to the Emergency Department on the above date and was hospitalized for further evaluation of their emergent condition. - New Patient This patient is new to me today: Yes Date on this admission: 03/05/19 - Critical Care Critical Care patient: No - Discharge Referral Referred to [facility] Med P.C.: No
[2019-03-05 13:29] VITALS: BMI 41.5
[2019-03-05] MEDS ORDERED: CYCLOBENZAPRINE HCL 5 MG TABLET PO PRN (13:34)
[2019-03-05] MEDS: GABAPENTIN 100 MG CAPSULE (FP) PO SCH ×2 (13:46→22:10)
[2019-03-05] MEDS: LIDOCAINE 5% TOPICAL PATCH TP SCH (13:46)
[2019-03-05] MEDS: PANTOPRAZOLE 40 MG TABLET (FP) PO SCH (13:46)
[2019-03-05] MEDS ORDERED: ONDANSETRON 4 MG/2 ML VIAL IVPUSH PRN (15:59)
[2019-03-05] MEDS ORDERED: INSULIN (NOVOLOG) ASPART 100 UNITS/ML 10ML VIAL ONE (16:34)
[2019-03-05] MEDS: INSULIN SLIDING SCALE (NOVOLOG) 1 VIAL SQ SCH ×2 (16:41→22:11)
[2019-03-05] MEDS: KETOROLAC TROMETHAMINE 15 MG/ML VIAL IVPUSH PRN (16:41)
[2019-03-05] MEDS: ROSUVASTATIN CA 10 MG TABLET (FP) PO SCH (22:10)
[2019-03-05] MEDS: LIDOCAINE PATCH REMOVAL MC SCH (22:10)
[2019-03-06] MEDS: KETOROLAC TROMETHAMINE 15 MG/ML VIAL IVPUSH PRN (01:08)
[2019-03-06] MEDS: INSULIN SLIDING SCALE (NOVOLOG) 1 VIAL SQ SCH ×4 (06:19→21:40)
[2019-03-06] MEDS: metFORMIN HCL 500 MG TABLET (FP) PO SCH ×2 (06:19→16:54)
[2019-03-06] MEDS: GABAPENTIN 100 MG CAPSULE (FP) PO SCH ×3 (06:19→21:39)
[2019-03-06] MEDS: LEVOTHYROXINE NA 125 MCG TABLET (FP) PO SCH (06:19)
[2019-03-06 07:43] LABS: ANION GAP 8 MMOL/L (8-16); BLOOD UREA NITROGEN 28 mg/dL (7-18); CALCIUM 8.7 mg/dL (8.5-10.1); CHLORIDE 101 mmol/L (98-107); CO2 28 mmol/L (21-32); CREATININE 1.4 mg/dL (0.55-1.3); GLUCOSE,RANDOM 110 mg/dL (74-106); POTASSIUM 3.8 mmol/L (3.5-5.1); SODIUM 136 mmol/L (136-145)
[2019-03-06] MEDS ORDERED: SODIUM CHLORIDE 250 ML IV STA (08:14)
[2019-03-06] MEDS: PANTOPRAZOLE 40 MG TABLET (FP) PO SCH (09:13)
[2019-03-06] MEDS: ISOSORBIDE MONONITRATE 30 MG TAB.SR.24H (FP) PO SCH (09:13)
[2019-03-06] MEDS: LOSARTAN POTASSIUM 50 MG TABLET (FP) PO SCH (09:13)
[2019-03-06] MEDS: LIDOCAINE 5% TOPICAL PATCH TP SCH (09:13)
--- NOTE | 2019-03-06 11:54 | PN ---
Physical Exam: SUBJECTIVE: Patient seen and examined, right low back/buttock pain radiating down right leg. No new complaints. Symptoms improved with medications. OBJECTIVE: Vital Signs Period Temp Pulse Resp BP Sys/Choi Pulse Ox Last 24 Hr 97.8 F-98.7 F 52-84 20-22 129-164/53-85 94-95 Intake & Output 03/03/19 03/04/19 03/05/19 03/06/19 23:59 23:59 23:59 23:59 Intake Total 420 Balance 420 Weight 230 lb 220 lb GENERAL: The patient is awake, alert, and fully oriented, in no acute distress. HEAD: Normal with no signs of trauma. EYES: PERRL, extraocular movements intact, sclera anicteric, conjunctiva clear. No ptosis. ENT: Ears normal, nares patent, oropharynx clear without exudates, moist mucous membranes. NECK: Trachea midline, full range of motion, supple. LUNGS: Breath sounds equal, clear to auscultation bilaterally, no wheezes, no crackles, no accessory muscle use. HEART: Regular rate and rhythm, S1, S2 without murmur, rub or gallop. ABDOMEN: Soft, nontender, nondistended, normoactive bowel sounds, no guarding, no rebound, no hepatosplenomegaly, no masses. EXTREMITIES: 2+ pulses, warm, well-perfused, no edema. NEUROLOGICAL: Cranial nerves II through XII grossly intact. Normal speech, gait not observed. PSYCH: Normal mood, normal affect. SKIN: Warm, dry, normal turgor, no rashes or lesions noted Laboratory Results - last 24 hr 03/05/19 03/05/19 03/05/19 06:30 16:32 22:09 Sodium 136 Potassium 3.8 Chloride 100 Carbon Dioxide 29 Anion Gap 7 L BUN 28 H Creatinine 1.1 Creat Clearance w eGFR 47.67 POC Glucometer 156 124 Random Glucose 132 H Calcium 9.1 Phosphorus 3.1 Magnesium 2.0 TSH 12.00 H Free T4 0.88 03/06/19 03/06/19 03/06/19 06:00 06:18 11:24 Sodium 136 Potassium 3.8 Chloride 101 Carbon Dioxide 28 Anion Gap 8 BUN 28 H Creatinine 1.4 H Creat Clearance w eGFR 36.09 POC Glucometer 113 103 Random Glucose 110 H Calcium 8.7 Phosphorus Magnesium TSH Free T4 Active Medications Generic Name Dose Route Start Last Admin Trade Name Betsy PRN Reason Stop Dose Admin Acetaminophen 650 mg 03/04/19 21:34 03/05/19 08:00 Tylenol - PO 650 mg Q4H PRN Administration PAIN SCALE 1-5 Cyclobenzaprine HCl 2.5 mg 03/06/19 11:49 Cyclobenzaprine Hcl PO TID PRN MUSCLE SPASMS Gabapentin 100 mg 03/05/19 14:00 03/06/19 06:19 Neurontin - PO 100 mg TID [facility] Administration Hydrochlorothiazide 25 mg 03/05/19 10:00 03/05/19 10:30 Hctz - PO 25 mg DAILY [facility] Administration Insulin Aspart 1 vial 03/05/19 16:30 03/06/19 11:33 Novolog Vial Sliding Scale - SQ Not Given ACHS [facility] Protocol Isosorbide Mononitrate 30 mg 03/05/19 10:00 03/06/19 09:13 Imdur - PO 30 mg DAILY [facility] Administration Levothyroxine Sodium 125 mcg 03/05/19 07:00 03/06/19 06:19 Synthroid - PO 125 mcg AM [facility] Administration Lidocaine 1 patch 03/05/19 13:00 03/06/19 09:13 Lidoderm Patch - TP 1 patch DAILY [facility] Administration Losartan Potassium 100 mg 03/05/19 10:00 03/06/19 09:13 Cozaar - PO 100 mg DAILY [facility] Administration Metformin HCl 1,000 mg 03/05/19 07:00 03/06/19 06:19 Glucophage - PO 1,000 mg BID@0700,1630 [facility] Administration Miscellaneous 1 each 03/05/19 22:00 03/05/19 22:10 Lidoderm Patch Removal MC 1 each DAILY@2200 [facility] Administration Ondansetron HCl 4 mg 03/05/19 15:59 Zofran Injection IVPUSH Q6H PRN NAUSEA AND/OR VOMITING Pantoprazole Sodium 40 mg 03/05/19 13:30 03/06/19 09:13 Protonix - PO 40 mg DAILY [facility] Administration Rosuvastatin Calcium 10 mg 03/04/19 22:00 03/05/19 22:10 Crestor - PO 10 mg HS [facility]I Administration ASSESSMENT/PLAN: 83 yof with PMHx of CAD/angina, HTN, HLD, NIDDM, osteoarthritis, hypothyroidism , with fall about a week ago, recently seen in the ED on 03/03 with RLE pain, d/ jane on tramadol comes back with ongoing pain and dizziness after taking tramadol. -RLE pain, sharp shooting burning from back, suspect lumbar radiculopathy with associated muscle spasm, less likely from hip/knee related arthritis -Dizziness, suspect medication induced -CKD stage II -HTN -HLD -CAD/angina -NIDDM -Subclinical Hypothyroidism -Osteoarthritis Plan: Improved. Increase neurontin to 200 mg TID. Lidocaine patch. Flexeril/tylenol prn. Cr with mild bump, though overall in similar range, suspect CKD stage II. Hold off toradol/HCTZ. trial with 250 ml x 1, repeat BMP. PT eval. Thoracic MRI from 2013 with degenerative disc disease,likely exacerbated by recent fall. Additional imaging and medrol dose pack trial if fails to improve. Losartan with close monitoring of renal function. Metformin, ISS, diabetic diet. Thyroid panel noted, Retrieve info on recent change in levothyroxine dose, will change accordingly. DVTPPX heparin Dispo in 24-48 hours pending clinical improvement, stabilization in renal function and no new concerns. Plan discussed with patient, family at bedside and nursing, all questions answered. Visit type - Emergency Visit Emergency Visit: Yes ED Registration Date: 03/04/19 Care time: The patient presented to the Emergency Department on the above date and was hospitalized for further evaluation of their emergent condition. - New Patient This patient is new to me today: No - Critical Care Critical Care patient: No - Discharge Referral Referred to [facility] Med P.C.: No
[2019-03-06] MEDS ORDERED: CYCLOBENZAPRINE HCL 5 MG TABLET PO PRN (12:02)
[2019-03-06 13:33] LABS: ANION GAP 8 MMOL/L (8-16); BLOOD UREA NITROGEN 27 mg/dL (7-18); CALCIUM 8.9 mg/dL (8.5-10.1); CHLORIDE 101 mmol/L (98-107); CO2 26 mmol/L (21-32); CREATININE 1.3 mg/dL (0.55-1.3); GLUCOSE,RANDOM 115 mg/dL (74-106); POTASSIUM 4.1 mmol/L (3.5-5.1); SODIUM 136 mmol/L (136-145)
[2019-03-06] MEDS: ROSUVASTATIN CA 10 MG TABLET (FP) PO SCH (21:40)
[2019-03-06] MEDS: LIDOCAINE PATCH REMOVAL MC SCH (21:40)
[2019-03-06] MEDS: ACETAMINOPHEN 325 MG TABLET (FP) PO PRN (21:44)
[2019-03-06] MEDS ORDERED: GABAPENTIN 100 MG CAPSULE (FP) PO SCH (22:00)
[2019-03-07] MEDS: INSULIN SLIDING SCALE (NOVOLOG) 1 VIAL SQ SCH ×3 (06:15→16:16)
[2019-03-07] MEDS: GABAPENTIN 100 MG CAPSULE (FP) PO SCH ×2 (06:16→14:38)
[2019-03-07] MEDS: metFORMIN HCL 500 MG TABLET (FP) PO SCH ×2 (06:16→16:57)
[2019-03-07] MEDS: LEVOTHYROXINE NA 125 MCG TABLET (FP) PO SCH (06:17)
[2019-03-07] MEDS ORDERED: PT OWN MED DRAWER 7, Y5N ONE ×2 (08:17→09:48)
[2019-03-07] MEDS: ACETAMINOPHEN 325 MG TABLET (FP) PO PRN (08:19)
[2019-03-07] MEDS: HYDROCHLOROTHIAZIDE 25 MG TABLET (FP) PO SCH (09:53)
[2019-03-07] MEDS: ISOSORBIDE MONONITRATE 30 MG TAB.SR.24H (FP) PO SCH (09:53)
[2019-03-07] MEDS: LIDOCAINE 5% TOPICAL PATCH TP SCH (09:53)
[2019-03-07] MEDS: PANTOPRAZOLE 40 MG TABLET (FP) PO SCH (09:53)
[2019-03-07] MEDS: LOSARTAN POTASSIUM 50 MG TABLET (FP) PO SCH (09:53)
--- NOTE | 2019-03-07 10:50 | PN ---
Teaching Attending Note Name of Resident: Roseann Lou ATTENDING PHYSICIAN STATEMENT I saw and evaluated the patient. I reviewed the resident's note and discussed the case with the resident. I agree with the resident's findings and plan as documented with exceptions below. SUBJECTIVE: Patient seen and examined. leg pain improved, no new complaints. OBJECTIVE: Vital Signs Period Temp Pulse Resp BP Sys/Choi Pulse Ox Last 24 Hr 97.9 F-98.7 F 60-70 20-20 144-150/43-74 95 Intake & Output 03/04/19 03/05/19 03/06/19 03/07/19 23:59 23:59 23:59 23:59 Intake Total 1120 Balance 1120 Weight 230 lb 220 lb General sitting in bed in no acute distress Chest: CTAB, no rales or wheezing Abdomen:Soft, obese, NT extremities: no edema Musculosekeletal: no spinal tenderness, ROM RLE improved, power 5/5, improved exam Home Medications Medication Instructions Recorded Nitroglycerin [Nitrostat] 0.4 mg SL ASDIR 05/17/16 metFORMIN HCL [Metformin ER 1,000 mg PO BID 05/17/16 Osmotic] Isosorbide Mononitrate [Imdur -] 30 mg PO DAILY #30 tab 03/30/17 Rosuvastatin [Crestor -] 10 mg PO HS #30 tablet 03/30/17 Acetaminophen 500 mg PO QID #20 tablet 02/28/19 Levothyroxine Sodium [Levoxyl] 125 mcg PO DAILY 02/28/19 Losartan/Hydrochlorothiazide 1 each PO DAILY 02/28/19 [Losartan-Hctz 100-25 mg Tab] Naproxen [Naprosyn -] 500 mg PO BID #14 tablet 02/28/19 traMADol HCL [Ultram] 50 mg PO Q8H PRN #10 tablet MDD 3 03/03/19 tabs Active Medications Acetaminophen (Tylenol -) 650 mg PO Q4H PRN PRN Reason: PAIN SCALE 1-5 Last Admin: 03/07/19 08:19 Dose: 650 mg Cyclobenzaprine HCl (Cyclobenzaprine Hcl) 2.5 mg PO TID PRN PRN Reason: MUSCLE SPASMS Last Admin: 03/07/19 08:19 Dose: 2.5 mg Gabapentin (Neurontin -) 200 mg PO TID LORI Last Admin: 03/07/19 06:16 Dose: 200 mg Hydrochlorothiazide (Hctz -) 25 mg PO DAILY [facility] Last Admin: 03/07/19 09:53 Dose: 25 mg Insulin Aspart (Novolog Vial Sliding Scale -) 1 vial SQ ACHS [facility]; Protocol Last Admin: 03/07/19 06:15 Dose: Not Given Isosorbide Mononitrate (Imdur -) 30 mg PO DAILY [facility] Last Admin: 03/07/19 09:53 Dose: 30 mg Levothyroxine Sodium (Synthroid -) 125 mcg PO AM [facility] Last Admin: 03/07/19 06:17 Dose: 125 mcg Lidocaine (Lidoderm Patch -) 1 patch TP DAILY [facility] Last Admin: 03/07/19 09:53 Dose: 1 patch Losartan Potassium (Cozaar -) 100 mg PO DAILY [facility] Last Admin: 03/07/19 09:53 Dose: 100 mg Metformin HCl (Glucophage -) 1,000 mg PO BID@0700,1630 [facility] Last Admin: 03/07/19 06:16 Dose: 1,000 mg Miscellaneous (Lidoderm Patch Removal) 1 each MC DAILY@2200 [facility] Last Admin: 03/06/19 21:40 Dose: 1 each Ondansetron HCl (Zofran Injection) 4 mg IVPUSH Q6H PRN PRN Reason: NAUSEA AND/OR VOMITING Pantoprazole Sodium (Protonix -) 40 mg PO DAILY [facility] Last Admin: 03/07/19 09:53 Dose: 40 mg Rosuvastatin Calcium (Crestor -) 10 mg PO HS [facility] Last Admin: 03/06/19 21:40 Dose: 10 mg Laboratory Results - last 24 hr 03/06/19 03/06/19 03/06/19 11:24 12:37 16:40 Sodium 136 Potassium 4.1 Chloride 101 Carbon Dioxide 26 Anion Gap 8 BUN 27 H Creatinine 1.3 Creat Clearance w eGFR 39.31 POC Glucometer 103 104 Random Glucose 115 H Calcium 8.9 03/06/19 03/07/19 21:38 06:14 Sodium Potassium Chloride Carbon Dioxide Anion Gap BUN Creatinine Creat Clearance w eGFR POC Glucometer 105 112 Random Glucose Calcium ASSESSMENT AND PLAN: 83 yof with PMHx of CAD/angina, HTN, HLD, NIDDM, osteoarthritis, hypothyroidism , with fall about a week ago, recently seen in the ED on 03/03 with RLE pain, d/ jane on tramadol comes back with ongoing pain and dizziness after taking tramadol. -RLE pain, sharp shooting burning from back, suspect lumbar radiculopathy with associated muscle spasm, less likely from hip/knee related arthritis -Dizziness, suspect medication induced -CKD stage II -HTN -HLD -CAD/angina -NIDDM -Subclinical Hypothyroidism -Osteoarthritis Plan: Improved. Continue Neurontin to 200 mg TID. Lidocaine patch. Flexeril/tylenol prn. Suspected CKD rather than SANDRA. resume HCTZ if no concerns today. Hold off toradol Thoracic MRI from 2013 with degenerative disc disease,likely exacerbated by recent fall. Additional imaging and medrol dose pack trial if fails to improve. Losartan with close monitoring of renal function. Metformin, ISS, diabetic diet. Thyroid panel noted, Retrieve info on recent change in levothyroxine dose, will change accordingly. DVTPPX heparin Dispo PT eval rec SNF. Plan for d/c to SNF when bed available. Plan discussed with patient and nursing.
[2019-03-07 10:52] VITALS: BP 140/69; PULSE 54; TEMP 97.5
[2019-03-07 12:02] LABS: ANION GAP 7 MMOL/L (8-16); BLOOD UREA NITROGEN 27 mg/dL (7-18); CALCIUM 8.9 mg/dL (8.5-10.1); CHLORIDE 103 mmol/L (98-107); CO2 26 mmol/L (21-32); CREATININE 1.2 mg/dL (0.55-1.3); GLUCOSE,RANDOM 114 mg/dL (74-106); SODIUM 136 mmol/L (136-145)
[2019-03-07] MEDS ORDERED: KETOROLAC TROMETHAMINE 15 MG/ML VIAL IVPUSH PRN (12:42)
[2019-03-07] MEDS ORDERED: oxyCODONE HCL 5 MG TABLET PO PRN (15:04)
--- NOTE | 2019-03-07 17:00 | PN ---
Physical Exam: SUBJECTIVE: Patient seen and examined, still complaining of pain. OBJECTIVE: Vital Signs Period Temp Pulse Resp BP Sys/Choi Pulse Ox Last 24 Hr 97.5 F-98.7 F 54-70 20-20 140-150/69-74 GENERAL: The patient is awake, alert, and fully oriented, in no acute distress. HEAD: Normal with no signs of trauma. EYES: Extraocular movements intact, sclera anicteric, conjunctiva clear. ENT: Oropharynx clear without exudates, moist mucous membranes. NECK: Trachea midline, full range of motion, supple. LUNGS: Breath sounds equal, clear to auscultation bilaterally, no wheezes, no crackles, no accessory muscle use. HEART: Regular rate and rhythm, S1, S2 without murmur, rub or gallop. ABDOMEN: Obese, soft, nontender, nondistended, normoactive bowel sounds. EXTREMITIES: 2+ pulses, warm,no edema , tenderness in rle in thign and below the knee. NEUROLOGICAL: Normal speech, gait not observed, motor 5/5, sensation intact. PSYCH: Normal mood, normal affect. SKIN: Warm, dry, no rashes or lesions noted. Laboratory Results - last 24 hr 03/06/19 03/07/19 03/07/19 21:38 06:14 11:20 Sodium 136 Potassium 4.0 Chloride 103 Carbon Dioxide 26 Anion Gap 7 L BUN 27 H Creatinine 1.2 Creat Clearance w eGFR 43.12 POC Glucometer 105 112 Random Glucose 114 H Calcium 8.9 03/07/19 03/07/19 11:30 16:15 Sodium Potassium Chloride Carbon Dioxide Anion Gap BUN Creatinine Creat Clearance w eGFR POC Glucometer 116 116 Random Glucose Calcium Active Medications Generic Name Dose Route Start Last Admin Trade Name Freq PRN Reason Stop Dose Admin Acetaminophen 650 mg 03/04/19 21:34 03/07/19 08:19 Tylenol - PO 650 mg Q4H PRN Administration PAIN SCALE 1-5 Cyclobenzaprine HCl 2.5 mg 03/06/19 12:02 03/07/19 08:19 Cyclobenzaprine Hcl PO 2.5 mg TID PRN Administration MUSCLE SPASMS Gabapentin 200 mg 03/06/19 22:00 03/07/19 14:38 Neurontin - PO 200 mg TID [facility] Administration Hydrochlorothiazide 25 mg 03/05/19 10:00 03/07/19 09:53 Hctz - PO 25 mg DAILY [facility] Administration Insulin Aspart 1 vial 03/05/19 16:30 03/07/19 16:16 Novolog Vial Sliding Scale - SQ Not Given ACHS [facility] Protocol Isosorbide Mononitrate 30 mg 03/05/19 10:00 03/07/19 09:53 Imdur - PO 30 mg DAILY [facility] Administration Ketorolac Tromethamine 15 mg 03/07/19 12:42 03/07/19 12:51 Toradol Injection - IVPUSH 03/12/19 12:41 15 mg Q6H PRN Administration PAIN LEVEL 7 - 10 Levothyroxine Sodium 125 mcg 03/05/19 07:00 03/07/19 06:17 Synthroid - PO 125 mcg AM [facility] Administration Lidocaine 1 patch 03/05/19 13:00 03/07/19 09:53 Lidoderm Patch - TP 1 patch DAILY [facility] Administration Losartan Potassium 100 mg 03/05/19 10:00 03/07/19 09:53 Cozaar - PO 100 mg DAILY [facility] Administration Metformin HCl 1,000 mg 03/05/19 07:00 03/07/19 16:57 Glucophage - PO 1,000 mg BID@0700,1630 [facility] Administration Miscellaneous 1 each 03/05/19 22:00 03/06/19 21:40 Lidoderm Patch Removal MC 1 each DAILY@2200 [facility] Administration Ondansetron HCl 4 mg 03/05/19 15:59 Zofran Injection IVPUSH Q6H PRN NAUSEA AND/OR VOMITING Oxycodone HCl 2.5 mg 03/07/19 15:04 Roxicodone - PO Q6H PRN PAIN LEVEL 7 - 10 Pantoprazole Sodium 40 mg 03/05/19 13:30 03/07/19 09:53 Protonix - PO 40 mg DAILY [facility] Administration Rosuvastatin Calcium 10 mg 03/04/19 22:00 03/06/19 21:40 Crestor - PO 10 mg HS [facility]I Administration ASSESSMENT/PLAN: 83 yof with PMHx of CAD/angina, HTN, HLD, NIDDM, osteoarthritis, hypothyroidism , with fall about a week ago, recently seen in the ED on 03/03 with RLE pain, d/ jane on tramadol comes back with intractable pain in RLE and dizziness after taking tramadol. Intractable pain in RLE -likely lumbar radiculopathy with associated muscle spasm, less likely from hip/ knee related arthritis -CT positive for OA in hip, knee -pain control, muscle relaxants for muscle spasms Dizziness -likely due to tramadol CKD -stable, monitor Hypertensive urgency: -BP improved without intervention -monitoring HLD -cont home meds CAD/angina -stable NIDDM -monitor Subclinical Hypothyroidism -monitor F/E/N; no/no/diabetic Dispo: discharge today Problem List - Problems (1) Hypertensive urgency Code(s): I16.0 - HYPERTENSIVE URGENCY (2) Leg pain Code(s): M79.606 - PAIN IN LEG, UNSPECIFIED (3) Ankle sprain Code(s): S93.409A - SPRAIN OF UNSP LIGAMENT OF UNSPECIFIED ANKLE, INIT ENCNTR Qualifiers: Encounter type: initial encounter Involved ligament of ankle: unspecified ligament Laterality: right Qualified Code(s): S93.401A - Sprain of unspecified ligament of right ankle, initial encounter (4) Back pain Code(s): M54.9 - DORSALGIA, UNSPECIFIED Qualifiers: Back pain location: thoracic back pain Chronicity: acute Back pain laterality: bilateral Qualified Code(s): M54.6 - Pain in thoracic spine (5) Chest pain at rest Code(s): R07.9 - CHEST PAIN, UNSPECIFIED (6) Fall Code(s): W19.XXXA - UNSPECIFIED FALL, INITIAL ENCOUNTER Qualifiers: Encounter type: initial encounter Qualified Code(s): W19.XXXA - Unspecified fall, initial encounter (7) Folliculitis Code(s): L73.9 - FOLLICULAR DISORDER, UNSPECIFIED (8) Neuropathy Code(s): G62.9 - POLYNEUROPATHY, UNSPECIFIED (9) Sciatic leg pain Code(s): M54.30 - SCIATICA, UNSPECIFIED SIDE Visit type - Emergency Visit Emergency Visit: Yes ED Registration Date: 03/06/19 Care time: The patient presented to the Emergency Department on the above date and was hospitalized for further evaluation of their emergent condition. - New Patient This patient is new to me today: No - Critical Care Critical Care patient: No - Discharge Referral Referred to [facility] Med P.C.: No
--- NOTE | 2019-03-07 17:43 | DS ---
Physical Exam: SUBJECTIVE: Patient seen and examined. She is complaining of leg pain, no overnight events. OBJECTIVE: Vital Signs Period Temp Pulse Resp BP Sys/Choi Pulse Ox Last 24 Hr 97.5 F-98.7 F 54-70 20-20 140-150/69-74 PHYSICAL EXAM GENERAL: The patient is awake, alert, and fully oriented, in no acute distress. HEAD: Normal with no signs of trauma. EYES: Extraocular movements intact, sclera anicteric, conjunctiva clear. ENT: Oropharynx clear without exudates, moist mucous membranes. NECK: Trachea midline, full range of motion, supple. LUNGS: Breath sounds equal, clear to auscultation bilaterally, no wheezes, no crackles, no accessory muscle use. HEART: Regular rate and rhythm, S1, S2 without murmur, rub or gallop. ABDOMEN: Obese, soft, nontender, nondistended, normoactive bowel sounds. EXTREMITIES: 2+ pulses, warm,no edema , tenderness in rle in thign and below the knee. NEUROLOGICAL: Normal speech, gait not observed, motor 5/5, sensation intact. PSYCH: Normal mood, normal affect. SKIN: Warm, dry, no rashes or lesions noted. LABS Laboratory Results - last 24 hr 03/06/19 03/07/19 03/07/19 21:38 06:14 11:20 Sodium 136 Potassium 4.0 Chloride 103 Carbon Dioxide 26 Anion Gap 7 L BUN 27 H Creatinine 1.2 Creat Clearance w eGFR 43.12 POC Glucometer 105 112 Random Glucose 114 H Calcium 8.9 03/07/19 03/07/19 11:30 16:15 Sodium Potassium Chloride Carbon Dioxide Anion Gap BUN Creatinine Creat Clearance w eGFR POC Glucometer 116 116 Random Glucose Calcium HOSPITAL COURSE: This is an 83 yo F with PMH of HTN, HLD, DM, CAD who presents with intractable RLE pain. This is the 3rd time patient presents due to this pain s/p mechanical fall 02/26/19. The pain is worse with ambulation and patient ambulates with difficulty. She was prescribed tramadol yesterday in ED with relief of symptoms , however, she is unable to tolerate it well due to dizziness. She had multiple images of her RLE including x rays and CT, none of which sowed acute pathology. Of note, patient initially presented with dizziness and BP 209/99, which spontaneously improved. Patient lives with family and has daily help. Denies fevers, chills, chest pain, vomiting, abdominal pain, or changes with urination or bowel movements. In the emergency room she had CT of RLE that was positive for osteoarthritis in multiple joints, no acute pathology, and head CT that was nl. She was admitted for intractable pain of RLE. She was given Neurontin, Lidocaine patch, Flexeril, Tylenol, Oxycodone for pain. We also found that the patient had SANDRA on CKD. We held her HCTZ and Toradol. The patient clinically improved and was discharged to SNF. Date of Admission:03/06/19 Date of Discharge: 03/07/19 Minutes to complete discharge: 30 Discharge Summary Reason For Visit: PAIN/HYPERTENSION Current Active Problems Hypertensive urgency (Acute) Leg pain (Acute) Condition: Stable - Instructions Diet, Activity, Other Instructions: MEDICATIONS: Low dose oxycodone and flexeril as needed for pain and spasms, take only as directed. Stop your naproxen Continue other home medications as before INSTRUCTIONS: Please note that pain and muscle medications can cause dizziness, drowsiness and increase risk for falls. Please take them only as needed and do not take if dizzy, drowsy or sleepy. You kidney function will need to be monitored outpatient. Avoid NSAIDs like motrin, ibuprofen, naproxen etc. without discussion with your doctor. FOLLOW UP: Blood work for kidneys BMP (basic metabolic panel) in 1 week With PCP in 1 week of discharge from rehab With your orthopedic Dr. Marks in 1 week. If your symptoms recur or fail to resolve, you are advised to follow up with spine surgeon/orthopedic, to discuss further management including injections and surgical management. If you have worsening pain or any new leg weakness, tingling, numbness or bowel or urinary incontinence, or any new concerns, please call 911 or come to ED. Referrals: Josh Marks MD [Staff Physician] - Disposition: [facility] - Home Medications Comprehensive Discharge Medication List: Ambulatory Orders Nitroglycerin [Nitrostat] 0.4 mg SL ASDIR 05/17/16 metFORMIN HCL [Metformin ER Osmotic] 1,000 mg PO BID 05/17/16 Isosorbide Mononitrate [Imdur -] 30 mg PO DAILY #30 tab 05/08/17 Rosuvastatin [Crestor -] 10 mg PO HS #30 tablet 03/30/17 Acetaminophen 500 mg PO QID #20 tablet 02/28/19 Levothyroxine Sodium [Levoxyl] 125 mcg PO DAILY 02/28/19 Losartan/Hydrochlorothiazide [Losartan-Hctz 100-25 mg Tab] 1 each PO DAILY 02/28 Cyclobenzaprine HCl 2.5 mg PO TID PRN tablet 03/07/19 Gabapentin [Neurontin -] 200 mg PO TID capsule 03/07/19 Insulin Sliding Scale [Novolog Vial Sliding Scale -] 1 vial SQ ACHS units 03/07 Lidocaine 5% Patch [Lidoderm -] 1 patch TP DAILY patch 03/07/19 oxyCODONE HCL [Roxicodone -] 2.5 mg PO Q6H PRN #10 tablet MDD 10 mg 03/07/19 Problem List - Problems (1) Hypertensive urgency Code(s): I16.0 - HYPERTENSIVE URGENCY (2) Leg pain Code(s): M79.606 - PAIN IN LEG, UNSPECIFIED (3) Ankle sprain Code(s): S93.409A - SPRAIN OF UNSP LIGAMENT OF UNSPECIFIED ANKLE, INIT ENCNTR Qualifiers: Encounter type: initial encounter Involved ligament of ankle: unspecified ligament Laterality: right Qualified Code(s): S93.401A - Sprain of unspecified ligament of right ankle, initial encounter (4) Back pain Code(s): M54.9 - DORSALGIA, UNSPECIFIED Qualifiers: Back pain location: thoracic back pain Chronicity: acute Back pain laterality: bilateral Qualified Code(s): M54.6 - Pain in thoracic spine (5) Chest pain at rest Code(s): R07.9 - CHEST PAIN, UNSPECIFIED (6) Fall Code(s): W19.XXXA - UNSPECIFIED FALL, INITIAL ENCOUNTER Qualifiers: Encounter type: initial encounter Qualified Code(s): W19.XXXA - Unspecified fall, initial encounter (7) Folliculitis Code(s): L73.9 - FOLLICULAR DISORDER, UNSPECIFIED (8) Neuropathy Code(s): G62.9 - POLYNEUROPATHY, UNSPECIFIED (9) Sciatic leg pain Code(s): M54.30 - SCIATICA, UNSPECIFIED SIDE This patient is new to me today: Yes Date on this admission: 03/07/19 Emergency Visit: Yes ED Registration Date: 03/06/19 Care time: The patient presented to the Emergency Department on the above date and was hospitalized for further evaluation of their emergent condition. Critical Care patient: No - Discharge Referral Referred to [facility] No
== END 2019-03-07 18:48 | DRG 552 ==
LOC: JER 15:57 → JERBED 21:28 → INTOOBSV 21:28 → J6S 03-05 12:22 → OBSVTOIN 03-06 11:54
PROVIDERS: ADMIT Internal Medicine; ATTEND Hospitalist
DX: M54.16 Radiculopathy, lumbar region (principal); Z68.41 Body mass index [BMI] 40.0-44.9, adult; E66.9 Obesity, unspecified; I16.0 Hypertensive urgency; E11.9 Type 2 diabetes mellitus without complications; E78.5 Hyperlipidemia, unspecified; I25.119 Atherosclerotic heart disease of native coronary artery with unspecified angina pectoris; E03.9 Hypothyroidism, unspecified; R42 Dizziness and giddiness; G62.9 Polyneuropathy, unspecified; I12.9 Hypertensive chronic kidney disease with stage 1 through stage 4 chronic kidney disease, or unspecified chronic kidney disease; N18.2 Chronic kidney disease, stage 2 (mild); M19.90 Unspecified osteoarthritis, unspecified site
CPT/HCPCS: 36415; 70450-TC; 73700-TC-RT; 80048; 80053; 82962; 83735; 84100; 84439; 84443; 84484; 85025; 94660; 97116-GP; 97161-GP; 99284-25; G0378

== ENCOUNTER 2019-04-28 18:46 | Observation (INO) | payer OTHER ==
--- NOTE | 2019-04-28 19:03 | PDOC ---
History of Present Illness - General Chief Complaint: Weakness Stated Complaint: WEAKNESS Time Seen by Provider: 04/28/19 19:02 History Source: Patient Exam Limitations: No Limitations - History of Present Illness Initial Comments: 04/28/19 19:30 83 year old female with PMH HTN, HLD, CAD, DM, obesity, OSMIN, hiatal hernia presented to ED for epigastric pain x1 week, associated with nausea x2 days and diarrhea today. Pt stated her pain is intermittent, sharp, aggravated by eating , alleviated by not eating, nonradiating. Pt reported she had a 15 minute episode of lightheadedness with sweating and shortness of breath today when she felt the pain. Pt denied fever, chills, travels outside the country, blood in stool, vomiting, chest pain, shortness of breath. Allergies: NKDA Surgical history: cholecystectomy, EGD x3 years so PCP: Jesus Todd Past History - Past Medical History Allergies/Adverse Reactions: Allergies Allergy/AdvReac Type Severity Reaction Status Date / Time No Known Allergies Allergy Verified 04/28/19 20:35 Home Medications: Ambulatory Orders metFORMIN HCL [Metformin ER Osmotic] 1,000 mg PO BID 05/17/16 Rosuvastatin [Crestor -] 10 mg PO HS #30 tablet 03/30/17 Levothyroxine Sodium [Levoxyl] 125 mcg PO DAILY 02/28/19 Losartan/Hydrochlorothiazide [Losartan-Hctz 100-25 mg Tab] 1 each PO DAILY 02/28 Citalopram Hydrobromide [Citalopram HBr] 10 mg PO DAILY 04/28/19 Gabapentin [Neurontin] 100 mg PO HS 04/29/19 Cardiac Disorders: Yes (CAD) COPD: No Diabetes: Yes HTN: Yes Hypercholesterolemia: Yes - Surgical History Cholecystectomy: Yes - Immunization History Immunization Up to Date: Yes - Suicide/Smoking/Psychosocial Hx Smoking Status: No Smoking History: Never smoked Have you smoked in the past 12 months: No Number of Cigarettes Smoked Daily: 0 Hx Alcohol Use: No Drug/Substance Use Hx: No Hx Substance Use Treatment: No Review of Systems - Review of Systems Able to Perform ROS?: Yes Comments:: 04/28/19 19:28 General: admitted to generalized weakness. denied fever, chills. HEENT: denied sore throat, rhinorrhea, ear pain. Heart: admitted to lightheadedness, diaphoresis. denied chest pain, palpitations , syncope. Respiratory: admitted to shortness of breath. denied cough, sputum production, hemoptysis. Abdomen: admitted to abdominal pain, nausea, diarrhea. denied vomiting, constipation, blood in stool. : denied dysuria, increased urinary frequency, hematuria, urinary incontinence , flank pain. Back: denied back pain. Musculoskeletal: denied joint pain, muscle pain, joint swelling. Neurological: denied headache, dizziness, numbness, tingling, weakness. Skin: denied rash, laceration, abrasion. *Physical Exam - Physical Exam Comments: 04/28/19 19:28 Constitutional: Well-nourished, Well-developed, appearing stated age. obese. HEENT: head is normocephalic, atraumatic. EOMI. PERRLA. Neck: supple. Full ROM. Heart: regular rhythm. no murmurs, rubs or gallops. Lungs: clear to auscultation bilaterally. no crackles, rhonchi or wheezing. no stridor. Abdomen: soft, protuberant. epigastric tenderness to palpation. kaufman negative. mcburney nontender. normal bowel sounds. no rebound, guarding, masses. Extremities: peripheral pulses intact. no lower extremity edema. Neurological: CN 2-12 grossly intact. moves all four extremities. Psych: awake, alert, oriented x3. follows commands. answers questions appropriately. Heart Score/ECG Review - History History: Moderately suspicious - Electrocardiogram EKG: Non specific repolarization disturbance - Age Age: >/= 65 - Risk Factors Risk Factors Heart Score: Yes Hx Hypercholesterolemia, Yes Hx Hypertension, Yes Hx Diabetes, Yes Hx Obesity Based on the list above the patient has:: >/=3 risk factors or Hx atherosclerotic disease - Troponin Troponin: </= normal limit - Score Heart Score - Total: 6 ED Treatment Course - LABORATORY CBC & Chemistry Diagram: 04/29/19 05:30 04/29/19 05:30 Medical Decision Making - Medical Decision Making 04/28/19 19:29 83 year old female with above PMH presented to ED for epigastric pain x1 week, nausea x2 days and diarrhea since today. Initial Vital Signs Temp Pulse Resp BP Pulse Ox 98.0 F 64 20 105/64 96 04/28/19 19:12 04/28/19 19:12 04/28/19 19:12 04/28/19 19:12 04/28/19 19:12 Afebrile. No tachycardia. No tachypnea. Mild hypotension. No hypoxia on room air. Labs ordered: CBC, CMP, troponin, lipase Imaging ordered: CXR, CT abdomen/pelvis with IV contrast Medications ordered: pepcid, maalox, zofran, normal saline 1000 cc bolus EKG performed at 1855: rate 68, regular rhythm, normal axis, normal intervals, no acute ST changes. Similar to prior EKG performed 03/28/17 - PVC seen here is not seen today. 04/28/19 19:57 CBC WBC 7.0 K/mm3 (4.0-10.0) 04/28/19 19:19 RBC 4.05 M/mm3 (3.60-5.2) 04/28/19 19:19 Hgb 11.3 GM/dL (10.7-15.3) 04/28/19 19:19 Hct 34.7 % (32.4-45.2) 04/28/19 19:19 MCV 85.7 fl (80-96) 04/28/19 19:19 MCH 27.9 pg (25.7-33.7) 04/28/19 19:19 MCHC 32.6 g/dl (32.0-36.0) 04/28/19 19:19 RDW 13.1 % (11.6-15.6) 04/28/19 19:19 Plt Count 188 K/MM3 (134-434) 04/28/19 19:19 MPV 9.5 fl (7.5-11.1) 04/28/19 19:19 Absolute Neuts (auto) 5.2 K/mm3 (1.5-8.0) 04/28/19 19:19 Neutrophils % 74.4 % (42.8-82.8) 04/28/19 19:19 Lymphocytes % 19.3 % (8-40) 04/28/19 19:19 Monocytes % 5.5 % (3.8-10.2) 04/28/19 19:19 Eosinophils % 0.5 % (0-4.5) 04/28/19 19:19 Basophils % 0.3 % (0-2.0) 04/28/19 19:19 Nucleated RBC % 0 % (0-0) 04/28/19 19:19 No leukocytosis. No anemia. 04/28/19 20:09 CMP Sodium 136 mmol/L (136-145) 04/28/19 19:19 Potassium 3.8 mmol/L (3.5-5.1) 04/28/19 19:19 Chloride 105 mmol/L (98-107) 04/28/19 19:19 Carbon Dioxide 22 mmol/L (21-32) 04/28/19 19:19 Anion Gap 10 MMOL/L (8-16) 04/28/19 19:19 BUN 26 mg/dL (7-18) H 04/28/19 19:19 Creatinine 1.2 mg/dL (0.55-1.3) 04/28/19 19:19 Est GFR (CKD-EPI)AfAm 49.08 04/28/19 19:19 Est GFR (CKD-EPI)NonAf 42.35 04/28/19 19:19 Random Glucose 138 mg/dL (74-106) H 04/28/19 19:19 Calcium 9.6 mg/dL (8.5-10.1) 04/28/19 19:19 Total Bilirubin 0.4 mg/dL (0.2-1) 04/28/19 19:19 AST 11 U/L (15-37) L 04/28/19 19:19 ALT 18 U/L (13-61) 04/28/19 19:19 Alkaline Phosphatase 66 U/L (45-117) 04/28/19 19:19 Troponin I < 0.02 ng/ml (0.00-0.05) 04/28/19 19:19 Total Protein 7.5 g/dl (6.4-8.2) 04/28/19 19:19 Albumin 3.8 g/dl (3.4-5.0) 04/28/19 19: Lipase 245 U/L (73-393) 04/28/19 19:19 No electrolyte abnormalities. No SANDRA. No transaminitis. Troponin undetectable. Lipase within normal limits. 04/28/19 20:15 CXR my view: sharp costophrenic angles. no infiltrate. no large pneumothorax. -Pending official report 04/28/19 22:15 Urine Test Results Urine Color Yellow 04/28/19 21:50 Urine Appearance Clear 04/28/19 21:50 Urine pH 5.0 (5.0-8.0) D 04/28/19 21:50 Ur Specific Norden 1.013 (1.010-1.035) 04/28/19 21:50 Urine Protein Negative (NEGATIVE) 04/28/19 21:50 Urine Glucose (UA) Negative (NEGATIVE) 04/28/19 21:50 Urine Ketones Negative (NEGATIVE) 04/28/19 21:50 Urine Blood Negative (NEGATIVE) 04/28/19 21:50 Urine Nitrite Negative (NEGATIVE) 04/28/19 21:50 Urine Bilirubin Negative (NEGATIVE) 04/28/19 21:50 Ur Leukocyte Esterase Trace (NEGATIVE) 04/28/19 21:50 UA negative for UTI. No hematuria. No proteinuria. 04/28/19 23:02 CT abdomen/pelvis report: Multiplanar imaging was performed following the intravenous administration of nonionic contrast. As requested enteric contrast was not administered. No prior imaging studies are available at this facility for direct comparison. There is no evidence of pneumoperitoneum, abscess, free intraperitoneal fluid or bowel obstruction. Status post cholecystectomy. The common bile duct is mildly dilated measuring 0.8 cm in diameter. No gross intraductal calculus is identified within the limitations of CT. A nonspecific 1.7 cm left adrenal nodule is seen very likely representing an adenoma on a statistical basis. The appendix appears unremarkable. No CT evidence of acute diverticulitis or obvious acute colitis. The stomach and small bowel demonstrate no gross noncontrast pathology. The liver, spleen, pancreas, right adrenal gland and kidneys demonstrate no definite abnormality. There is no aortic aneurysm. No lymphadenopathy is identified on the basis of CT size criteria. 3 cm left ovarian and 2.8 cm right ovarian cysts are noted. Findings are noted which may be on the basis of bilateral chronic sacroiliitis. Impression: No definite CT findings of acute pathology are identified. Status post cholecystectomy. Mild common bile duct dilatation is noted with a 0.8 cm diameter - ? physiologic postsurgical change. Clinical/laboratory correlation is suggested. A 1.7 cm left adrenal nodule is seen very likely representing an adenoma. Biochemical evaluation is suggested as well as 3 month follow-up noncontrast CT or MRI. 3 cm left ovarian and 2.8 cm right ovarian cysts are noted. Correlation with nonemergent sonography or MRI is suggested. Possible bilateral chronic sacroiliitis. Correlate clinically. 04/29/19 02:09 EKG performed at 0155: rate 56, regular rhythm, normal axis, 1st degree AV block (NC 202), no acute ST changes. 04/29/19 03:39 Repeat troponin undetectable. Disposition: Admitted Diagnoses: Epigastric pain 04/29/19 18:27 Follow up: Official CXR report: A single AP view of the chest has been submitted. There are clear lungs, unfolded aorta, slightly prominent darling and large heart. The angles are sharp. The soft tissues are intact with no sign of infiltrate or failure. Since 03/28/2017 is a better inspiration and less prominent mediastinum. Correlation recommended. *DC/Admit/Observation/Transfer Diagnosis at time of Disposition: Epigastric pain, Pre-syncope, Anginal equivalent, Adrenal nodule - Discharge Dispostion Condition at time of disposition: Improved Decision to Admit order: Yes - Referrals - Patient Instructions - Post Discharge Activity
[2019-04-28 19:17] VITALS: BMI 38.2
[2019-04-28] MEDS ORDERED: SODIUM CHLORIDE 1,000 ML IV STA (19:30)
[2019-04-28] MEDS ORDERED: FAMOTIDINE 20 MG/50 ML IVPB 20 MG/50 ML MG IVPB ONE ×2 (19:30→19:55)
[2019-04-28] MEDS ORDERED: MAG HYDROX/AL HYDROX/SIMETH 30 ML UNIT-DOSE CUP PO ONE (19:30)
[2019-04-28] MEDS ORDERED: ONDANSETRON 4 MG/2 ML VIAL IVPUSH ONE (19:30)
[2019-04-28] MEDS ORDERED: ONDANSETRON 4 MG/2 ML VIAL ONE (19:39)
[2019-04-28 19:40] LABS: BASO % 0.3 % (0-2.0); EOS % 0.5 % (0-4.5); HEMATOCRIT 34.7 % (32.4-45.2); HEMOGLOBIN 11.3 GM/dL (10.7-15.3); LYMPH % 19.3 % (8-40); MCH 27.9 pg (25.7-33.7); MCHC 32.6 g/dl (32.0-36.0); MEAN CELL VOLUME 85.7 fl (80-96); MEAN PLT VOLUME 9.5 fl (7.5-11.1); MONO % 5.5 % (3.8-10.2); NEUT % 74.4 % (42.8-82.8); PLATELET COUNT 188 K/MM3 (134-434); RBC 4.05 M/mm3 (3.60-5.2); RDW 13.1 % (11.6-15.6)
[2019-04-28] MEDS ORDERED: MAG HYDROX/AL HYDROX/SIMETH 30 ML UNIT-DOSE CUP ONE (19:55)
[2019-04-28 20:01] LABS: INR 0.98 (0.83-1.09); PROTHROMBIN TIME (PATIENT) 11.6 SEC (9.7-13.0)
[2019-04-28 20:03] LABS: ACTIVATED PTT 29.7 SECONDS (25.2-36.5)
[2019-04-28 20:07] LABS: ALBUMIN 3.8 g/dl (3.4-5.0); ALK PHOS 66 U/L (45-117); ANION GAP 10 MMOL/L (8-16); BILIRUBIN,TOTAL 0.4 mg/dL (0.2-1); BLOOD UREA NITROGEN 26 mg/dL (7-18); CALCIUM 9.6 mg/dL (8.5-10.1); CHLORIDE 105 mmol/L (98-107); CO2 22 mmol/L (21-32); CREATININE 1.2 mg/dL (0.55-1.3); GLUCOSE,RANDOM 138 mg/dL (74-106); LIPASE 245 U/L (73-393); POTASSIUM 3.8 mmol/L (3.5-5.1); SGOT/AST 11 U/L (15-37); SGPT/ALT 18 U/L (13-61); SODIUM 136 mmol/L (136-145); TOT PROT 7.5 g/dl (6.4-8.2)
--- NOTE | 2019-04-28 21:24 | PDOC ---
Documentation entered by Emerson Segal SCRIBE, acting as scribe for Zane Humphrey MD. Zane Humphrey MD: This documentation has been prepared by the Luzma cochran Elijah, SCRIBE, under my direction and personally reviewed by me in its entirety. I confirm that the documentation accurately reflects all work, treatment, procedures, and medical decision making performed by me. Attending Attestation - Resident Resident Name: Harriet Giordano - ED Attending Attestation I have performed the following: I have examined & evaluated the patient, The case was reviewed & discussed with the resident, I agree w/resident's findings & plan - HPI HPI: 04/28/19 20:57 Patient is an 83 year old female with a significant medical history of coronary artery disease, diabetes, hypertension, hypercholesterolemia, hypothyroid, arthritis and sciatica, h/o cholecystectomy 2006 who presents to the ED with epigastric pain beginning 4 days ago. The patient reports intermittent epigastric pains that has progressively worsened to a waxing and waning pain. The patient reports eating making the pain worse. The patient associates nausea, loss of appetite, inability to sleep for 3 days and hot sweats as a result of epigastric pain. The patient also reports diarrhea. Denies vomiting. Denies Hematochezia. Denies chills. Previous Surgical History: Gallbladder Removal - Physicial Exam PE: 04/28/19 20:57 afebrile, VSS GENERAL: The patient is awake, alert, and fully oriented, in no acute distress. HEAD: Normal with no signs of trauma. EYES: Pupils equal, round and reactive to light, extraocular movements intact, conjunctiva clear with no pallor. No Jaundice. ENT: +Dry Mucosa. Nares patent, oropharynx clear without exudates. NECK: Normal range of motion, supple without lymphadenopathy, JVD, or masses. LUNGS: Breath sounds equal, clear to auscultation bilaterally. No wheeze/ crackles. HEART: Regular rate and rhythm, normal S1 and S2 without murmur or rub. ABDOMEN: slightly distended but soft. + Epigastric discomfort to palpation. BS wnl. No guarding or rebound. No palpable masses. No hepatosplenomegaly. EXTREMITIES: Normal range of motion, no edema. No clubbing or cyanosis. No cords, erythema, or tenderness. NEUROLOGICAL: Cranial nerves II through XII grossly intact. Normal speech, normal gait. PSYCH: Normal mood, normal affect. SKIN: Warm, Dry, normal turgor, no rashes or lesions noted. - Medical Decision Making 04/28/19 21:13 83-year-old female with history of diabetes and CAD, cholecystectomy 2006, endoscopy in the past reportedly negative and never placed on antacids presents now with 4 days of epigastric pain worse with meals, not exertional or related shortness of breath or palpitations, with focal discomfort to palpation in the epigastric region. Presentation could be most consistent with dyspepsia/ gastritis, question gastroenteritis given the diarrhea, rule out pancreatitis. Not consistent with obstruction, question transverse colitis. Atypical for cardiac etiology but patient has several risk factors. Labs, urinalysis EKG, chest x-ray, CT of the abdomen and pelvis Trial of antacids Reassess 04/28/19 22:46 labs wnl, no leukocytosis or anemia, normal LFTs/Lipase, UA clear. Trop negative. CTAP pending. Heart Score/ECG Review - History History: Slightly suspicious - Electrocardiogram EKG: Normal - Age Age: >/= 65 - Risk Factors Based on the list above the patient has:: >/=3 risk factors or Hx atherosclerotic disease - Troponin Troponin: </= normal limit - Score Heart Score - Total: 4 #1 ECG reviewed & interpreted by me at: 18:55 General ECG Interpretation: Sinus Rhythm, Normal Rate (68), Normal Intervals ( qtc 452), No acute ischemic changes
[2019-04-28 22:12] LABS: EPI CELLS 1.4 /HPF (0-5/HPF); HYALINE CASTS 1 /lpf (0-8); URINE APPEARANCE CLEAR; URINE BACTERIA 159.3 /hpf (NEGATIVE); URINE BILIRUBIN NEGATIVE (NEGATIVE); URINE COLOR YELLOW; URINE GLUCOSE (UA) NEGATIVE (NEGATIVE); URINE KETONE NEGATIVE (NEGATIVE); URINE LEUK ESTERASE TRACE (NEGATIVE); URINE NITRITE NEGATIVE (NEGATIVE); URINE PROTEIN NEGATIVE (NEGATIVE); URINE RBC 2 /hpf (0-4); URINE UROBILINOGEN 0.2 mg/dL (0.2-1.0); URINE WBC 1 /hpf (0-5)
--- NOTE | 2019-04-28 23:24 | PN ---
Teaching Attending Note Name of Resident: Lui Pedersen ATTENDING PHYSICIAN STATEMENT I saw and evaluated the patient. I reviewed the resident's note and discussed the case with the resident. I agree with the resident's findings and plan as documented. SUBJECTIVE: Patient is an 83 year old woman with a PMH of coronary artery disease, NIDDM, hypertension, hypercholesterolemia, hypothyroid, arthritis, sciatica and cholecystectomy (2006) who presents to the ER with epigastric pain beginning 4 days ago. Reportedly spent some time in a Rehab facility recently. The patient reports intermittent epigastric pains that has progressively worsened to a waxing and waning pain. Says she ate a meal of boiled banana and pork before the pain started. The patient reports eating making the pain worse. The patient associates nausea, loss of appetite, inability to sleep for 3 days and hot sweats as a result of epigastric pain. The patient also reports diarrhea and had neck pain, worse on the left side. Denies vomiting, fever, bloody stool, dysuria and chills. OBJECTIVE: Alert and obese Vital Signs Period Temp Pulse Resp BP Sys/Choi Pulse Ox Last 24 Hr 98.0 F 58-64 20 105/64 96-99 HEENT: No Jaundice, eye redness or discharge, PERRLA, EOMI. Normocephalic, atraumatic. External ears are normal and hearing is grossly intact. No nasal discharge. Neck: Supple, no limitation in ROM, tenderness left side of neck. No palpable adenopathy or thyromegaly. No JVD Chest: Good effort. Clear to auscultation and percussion. Heart: Regular. No S3, rub or murmur Abdomen: Not distended, soft, supra umblical tenderness and no HSM. No rebound or guarding. Normal bowel sounds. Ext: Peripheral pulses intact. No leg edema. Skin: Warm and dry. No petechiae, rash or ecchymosis. Neuro: Alert. Oriented x3. CN 2-12 grossly intact. Sensation grossly intact in all four extremities and DTR are symmetric. Psych: Appropriate mood and affect. Good insight. Current Medications Generic Name Dose Route Start Last Admin Trade Name Freq PRN Reason Stop Dose Admin Heparin Sodium (Porcine) 5,000 unit 04/29/19 02:00 04/29/19 01:40 Heparin - SQ 5,000 unit Q8H-IV LORI Administration Sodium Chloride 1,000 mls @ 75 mls/hr 04/29/19 01:15 04/29/19 01:39 Normal Saline - IV 75 mls/hr ASDIR LORI Administration Insulin Aspart 0 vial 04/29/19 07:00 Novolog Vial Sliding Scale - SQ ACHS LORI Protocol Melatonin 10 mg 04/29/19 22:00 Melatonin PO HS LORI Ondansetron HCl 4 mg 04/29/19 01:03 Zofran Injection IVPUSH Q6H PRN NAUSEA Pantoprazole Sodium 40 mg 04/29/19 10:00 Protonix Iv IVPUSH BID [facility] Home Medications Medication Instructions Recorded Nitroglycerin [Nitrostat] 0.4 mg SL ASDIR 05/17/16 metFORMIN HCL [Metformin ER 1,000 mg PO BID 05/17/16 Osmotic] Isosorbide Mononitrate [Imdur -] 30 mg PO DAILY #30 tab 03/30/17 Rosuvastatin [Crestor -] 10 mg PO HS #30 tablet 03/30/17 Acetaminophen 500 mg PO QID #20 tablet 02/28/19 Levothyroxine Sodium [Levoxyl] 125 mcg PO DAILY 02/28/19 Losartan/Hydrochlorothiazide 1 each PO DAILY 02/28/19 [Losartan-Hctz 100-25 mg Tab] Insulin Sliding Scale [Novolog 1 vial SQ ACHS units 03/07/19 Vial Sliding Scale -] Citalopram Hydrobromide 10 mg PO DAILY 04/28/19 [Citalopram HBr] Abnormal Lab Results 04/28/19 19:19 BUN 26 H Random Glucose 138 H AST 11 L ASSESSMENT AND PLAN: 1. Gastroenteritis - Though she has risk factors for ACS, her presentation is consistent with gastroenteritis. EKG is NSR with no acute ST-T wave changes and initial troponin is negative. Will admit to telemetry and rule out ACS. CT abd/ pelvis with IV contrast does not show any acute abnormality that explains the abdominal pain. CT showed possible bilateral chronic sacroiliitis, ovarian cysts and mild CBD dilatation. Patient felt better after IV NS, zofran, pepcid and mylanta in the ER. Will continue gentle IV fluids, IV protonix and if diarrhea reoccurs, will send stool for C. diff, ova and parasites and leukocytes. 2. Obesity Counseled on the risks associated with obesity. Will provide patient all the necessary assistance, counseling and positive reinforcement to facilitate weight loss. Consult rubber tile floor layer. 3. Hypertension - Restart appropriate outpatient antihypertensive drugs when clinically suitable. Nonpharmacologic measures to control hypertension like weight loss, salt restriction and exercise discussed. 4. DVT prophylaxis - Lovenox 40 mg SQ q 24 hours. 5. Advance directives - Full code
[2019-04-29] MEDS ORDERED: ONDANSETRON 4 MG/2 ML VIAL IVPUSH PRN (01:03)
[2019-04-29] MEDS ORDERED: SODIUM CHLORIDE 1,000 ML IV SCH (01:15)
--- NOTE | 2019-04-29 01:23 | HP ---
CHIEF COMPLAINT: Epigastric pain PCP: Dr. Jesus Todd HISTORY OF PRESENT ILLNESS: Pt. is an 83 y.o. ghanaian-speaking F w/ PMHx. of NIDDM, HTN, CAD (No stents), HLD, Hypothyroidism, Arthritis, Diabetic Neuropathy , OSMIN (on home BiPAP), and Hiatal hernia presents with epigastric pain that started on Thursday after having boiled banana and boiled pork on Thursday prepared by the Pt.s [id number]. Pt.'s son at bedside assisted in translation. Pt. states that she had just come home from rehab after her recent hospitalization for RLE pain. Pt. endorses diarrhea that started yesterday, 4 watery, non- bloody bowel movements. Pt. states that the abdominal pain gets worse with eating and subsides when not eating. Pt. states was 9/10 on arrival and decreased to 6-7/10 after medications. Pt. denies any fevers. Pt. endorses nausea for the last 2-3 days associated with decreased appetite, and inability to sleep. Pt. states she had a colonoscopy done within the last 3 years but denies her doctor telling her anytihng was wrong. Pt. had an EGD done within the last 5 years and states that she has a small hiatal hernia. Pt. endorses left-sided neck pain and head ache that started this morning. Pt. reports BGMs at home being consistently in the 200s. She states that she was prescribed Gabapentin by Dr. Oro on ? however her PCP dicontinue that medications and started Pt. on Citalopram for the peripheral neuropathy. Pt. at the end of the history endorses the onset of mild chest pain that was not reproducible to palpation. Pt. denies any vomiting, dysuria, hematuria, constipation, shortness of breath, or cough. ER course was notable for: (1)EKG, Trop, CT-A/P (2)Famotidine, Zofran, Mylanta (3) NS 1L Recent Travel: No PAST MEDICAL HISTORY: As above PAST SURGICAL HISTORY: CCY (2006), [facility]BS[facility] Social History: Smoking: Denies Alcohol: Denies Drugs: Denies Family History: Sister- DM, Mother of Heart Disease @ 82 Allergies No Known Allergies Allergy (Verified 04/28/19 20:35) HOME MEDICATIONS: Home Medications Medication Instructions Recorded Nitroglycerin [Nitrostat] 0.4 mg SL ASDIR 05/17/16 metFORMIN HCL [Metformin ER 1,000 mg PO BID 05/17/16 Osmotic] Isosorbide Mononitrate [Imdur -] 30 mg PO DAILY #30 tab 03/30/17 Rosuvastatin [Crestor -] 10 mg PO HS #30 tablet 03/30/17 Acetaminophen 500 mg PO QID #20 tablet 02/28/19 Levothyroxine Sodium [Levoxyl] 125 mcg PO DAILY 02/28/19 Losartan/Hydrochlorothiazide 1 each PO DAILY 02/28/19 [Losartan-Hctz 100-25 mg Tab] Insulin Sliding Scale [Novolog 1 vial SQ ACHS units 03/07/19 Vial Sliding Scale -] Citalopram Hydrobromide 10 mg PO DAILY 04/28/19 [Citalopram HBr] REVIEW OF SYSTEMS As above PHYSICAL EXAMINATION Vital Signs - 24 hr 04/28/19 04/28/19 04/28/19 19:12 20:55 20:57 Temperature 98.0 F Pulse Rate 64 58 L Respiratory 20 Rate Blood Pressure 105/64 O2 Sat by Pulse 96 99 99 Oximetry (%) GENERAL: Awake, alert, and fully oriented, in mild distress. HEAD: Normal with no signs of trauma. EYES: Pupils equal, round and reactive to light, extraocular movements intact, sclera anicteric, conjunctiva clear. EARS, NOSE, THROAT: Ears normal, nares patent, oropharynx clear without exudates. Dry mucous membranes. NECK: Normal range of motion, supple without lymphadenopathy, JVD, or masses. LUNGS: Breath sounds equal, clear to auscultation bilaterally. No wheezes, and no crackles. No accessory muscle use. HEART: Regular rate and rhythm, normal S1 and S2 with systolic murmur ABDOMEN: Soft, obese, periumbilical tenderness, not distended, hypoactive bowel sounds, no guarding, no rebound, no masses. MUSCULOSKELETAL: Normal range of motion at all joints. No bony deformities or tenderness. No CVA tenderness. Pt. able to turn her head b/l w/o tenderness or difficulty. Left neck tender to palapation. UPPER EXTREMITIES: 2+ radial pulses, warm, well-perfused. No cyanosis. No clubbing. No peripheral edema. LOWER EXTREMITIES: 2+ dorsal pedal pulses, warm, well-perfused. No calf tenderness. Trace edema. NEUROLOGICAL: Normal speech. Gait not assessed. PSYCHIATRIC: Cooperative. Good eye contact. Appropriate mood and affect. SKIN: Warm, dry, normal turgor, no rashes or lesions noted Laboratory Results - last 24 hr 04/28/19 04/28/19 04/28/19 19:19 19:19 19:19 WBC 7.0 RBC 4.05 Hgb 11.3 Hct 34.7 MCV 85.7 MCH 27.9 MCHC 32.6 RDW 13.1 Plt Count 188 MPV 9.5 Absolute Neuts (auto) 5.2 Neutrophils % 74.4 Lymphocytes % 19.3 Monocytes % 5.5 Eosinophils % 0.5 Basophils % 0.3 Nucleated RBC % 0 PT with INR 11.60 INR 0.98 PTT (Actin FS) 29.7 Sodium 136 Potassium 3.8 Chloride 105 Carbon Dioxide 22 Anion Gap 10 BUN 26 H Creatinine 1.2 Est GFR (CKD-EPI)AfAm 49.08 Est GFR (CKD-EPI)NonAf 42.35 Random Glucose 138 H Calcium 9.6 Total Bilirubin 0.4 AST 11 L ALT 18 Alkaline Phosphatase 66 Troponin I < 0.02 Total Protein 7.5 Albumin 3.8 Lipase 245 Urine Color Urine Appearance Urine pH Ur Specific [place]ocker Urine Protein Urine Glucose (UA) Urine Ketones Urine Blood Urine Nitrite Urine Bilirubin Urine Urobilinogen Ur Leukocyte Esterase Urine WBC (Auto) Urine RBC (Auto) Urine Casts (Auto) U Epithel Cells (Auto) Urine Bacteria (Auto) 04/28/19 21:50 WBC RBC Hgb Hct MCV MCH MCHC RDW Plt Count MPV Absolute Neuts (auto) Neutrophils % Lymphocytes % Monocytes % Eosinophils % Basophils % Nucleated RBC % PT with INR INR PTT (Actin FS) Sodium Potassium Chloride Carbon Dioxide Anion Gap BUN Creatinine Est GFR (CKD-EPI)AfAm Est GFR (CKD-EPI)NonAf Random Glucose Calcium Total Bilirubin AST ALT Alkaline Phosphatase Troponin I Total Protein Albumin Lipase Urine Color Yellow Urine Appearance Clear Urine pH 5.0 D Ur Specific [place]ocker 1.013 Urine Protein Negative Urine Glucose (UA) Negative Urine Ketones Negative Urine Blood Negative Urine Nitrite Negative Urine Bilirubin Negative Urine Urobilinogen 0.2 Ur Leukocyte Esterase Trace Urine WBC (Auto) 1 Urine RBC (Auto) 2 Urine Casts (Auto) 1 U Epithel Cells (Auto) 1.4 Urine Bacteria (Auto) 159.3 ASSESSMENT/PLAN: Pt. is an 83 y.o. gh[place]ian-speaking F w/ PMHx. of NIDDM, HTN, CAD (No stents), HLD, Hypothyroidism, Arthritis, Diabetic Neuropathy, OSMIN (on home BiPAP), and Hiatal hernia presents with epigastric pain that started on Thursday after having boiled banana and boiled pork on Thursday prepared by the Pt.s [id number]. #Abdominal Pain 2/[address] AP: no acute pathology, CBD: 0.8 cm; 1.7 cm L adrenal nodule (recommended f/ u CT/MRI in 3 months and biochemical studies); B/l ovarian cysts; B/l chronic sacroileitis CXR: no acute pathology f/u Stool studies GI consult (Dr. Sahu) appreciated c/w Protonix 40mg BID f/u ESR and CRP Clear liquid diet, advance as tolerated Initial Trop and EKG unremarkable, will f/u Rpt. of both f/u Echo #Lef Posterior Neck pain likely 2/2 position c/w warm compress Normal ROM If worsens, consider CT soft tissue #OSMIN c/w BiPaP #NIDDM hold oral agents BGM ACHS ISS ACHS f/u A1c #FEN NS @ 75 monitor electrolytes and replete as needed Clear Liquid--> advance as tolerated #DVT Heparin SQ Visit type - Emergency Visit Emergency Visit: Yes ED Registration Date: 04/28/19 Care time: The patient presented to the Emergency Department on the above date and was hospitalized for further evaluation of their emergent condition. - New Patient This patient is new to me today: Yes Date on this admission: 04/29/19 - Critical Care Critical Care patient: No
[2019-04-29] MEDS: HEPARIN NA (PORCINE) 5,000 UNITS/ML 1ML VIAL SQ SCH ×2 (01:40→09:26)
[2019-04-29 06:06] LABS: BASO % 0.4 % (0-2.0); EOS % 0.7 % (0-4.5); HEMATOCRIT 31.7 % (32.4-45.2); HEMOGLOBIN 10.5 GM/dL (10.7-15.3); LYMPH % 31.2 % (8-40); MCH 28.4 pg (25.7-33.7); MCHC 33.2 g/dl (32.0-36.0); MEAN CELL VOLUME 85.5 fl (80-96); MEAN PLT VOLUME 9.4 fl (7.5-11.1); MONO % 5.9 % (3.8-10.2); NEUT % 61.8 % (42.8-82.8); PLATELET COUNT 177 K/MM3 (134-434); RDW 13.1 % (11.6-15.6); WHITE BLOOD COUNT 7.5 K/mm3 (4.0-10.0)
[2019-04-29 06:35] LABS: ALBUMIN 3.6 g/dl (3.4-5.0); BILIRUBIN,TOTAL 0.3 mg/dL (0.2-1); CREATININE 1.2 mg/dL (0.55-1.3); POTASSIUM 3.7 mmol/L (3.5-5.1)
[2019-04-29] MEDS: INSULIN SLIDING SCALE (NOVOLOG) 1 VIAL SQ SCH ×2 (06:39→11:50)
[2019-04-29] MEDS ORDERED: PANTOPRAZOLE SODIUM 40 MG VIAL ONE (09:17)
[2019-04-29] MEDS ORDERED: HEPARIN NA (PORCINE) 5,000 UNITS/ML 1ML VIAL ONE (09:17)
[2019-04-29] MEDS ORDERED: PANTOPRAZOLE SODIUM 40 MG VIAL IVPUSH SCH (10:00)
--- NOTE | 2019-04-29 12:31 | EKG ---
Test Reason : Blood Pressure : / mmHG Vent. Rate : 056 BPM Atrial Rate : 056 BPM P-R Int : 202 ms QRS Dur : 094 ms QT Int : 446 ms P-R-T Axes : 057 -04 -01 degrees QTc Int : 430 ms SINUS BRADYCARDIA OTHERWISE NORMAL ECG WHEN COMPARED WITH ECG OF 28-MAR-2017 10:17, PREMATURE VENTRICULAR COMPLEXES ARE NO LONGER PRESENT Confirmed by SCOTT REYES MD ([id number]) on 04/29/2019 12:30:48 PM Referred By: Confirmed By:SCOTT REYES MD
--- NOTE | 2019-04-29 12:35 | EKG ---
Test Reason : Blood Pressure : / mmHG Vent. Rate : 068 BPM Atrial Rate : 068 BPM P-R Int : 194 ms QRS Dur : 096 ms QT Int : 426 ms P-R-T Axes : 074 002 018 degrees QTc Int : 452 ms NORMAL SINUS RHYTHM CANNOT RULE OUT SEPTAL INFARCT , AGE UNDETERMINED ABNORMAL ECG Confirmed by SCOTT REYES MD ([id number]) on 04/29/2019 12:35:08 PM Referred By: Confirmed By:SCOTT REYES MD
--- NOTE | 2019-04-29 13:58 | ECHO ---
Name: SCOTT QUIÑONEZ Exam:Adult Echocardiogram Study Date: 04/29/2019 10:52 AM Age: 83 yrs Reason For Study: CHEST PAIN Height: 65 in Weight: 230 lb BSA: 2.1 m2 BP: 156/84 mmHg MMode/2D Measurements & Calculations IVSd: 1.2 cm Ao root diam: 3.5 cm LVIDd: 5.4 cm LA dimension: 4.8 cm LVIDs: 4.0 cm ACS: 2.0 cm LVPWd: 0.95 cm IVSs: 1.1 cm LVPWs: 1.2 cm EDV(Teich): 139.9 ml ESV(Teich): 68.0 ml Doppler Measurements & Calculations MV E max sumeet: 87.1 cm/sec Ao V2 max: 123.5 cm/sec MV A max sumeet: 88.4 cm/sec Ao max P.1 mmHg MV E/A: 0.99 Ao V2 mean: 106.3 cm/sec Ao mean P.8 mmHg Ao V2 VTI: 34.8 cm MR max sumeet: 436.0 cm/sec TR max sumeet: 222.1 cm/sec MR max P.1 mmHg TR max P.8 mmHg PI end-d sumeet: 86.2 cm/sec Med Peak E' Sumeet: 3.5 cm/sec Med E/e': 24.8 Lat Peak E' Sumeet: 6.4 cm/sec Lat E/e': 13.5 Left Ventricle Left ventricular systolic function is normal. Ejection Fraction = 55-60%. Right Ventricle The right ventricle is normal in size and function. Atria The left atrium is moderately dilated. Mitral Valve The mitral valve is normal in structure and function. There is no mitral valve stenosis. There is mil d mitral regurgitation. Tricuspid Valve The tricuspid valve is normal in structure and function. There is mild tricuspid regurgitation. Aortic Valve The aortic valve opens well. No hemodynamically significant valvular aortic stenosis. No aortic regur gitation is present. Pulmonic Valve The pulmonic valve is not well seen, but is grossly normal. There is no pulmonic valvular stenosis. M ild pulmonic valvular regurgitation. Great Vessels The aortic root is normal size. Pericardium/Pleura There is no pericardial effusion. Interpretation Summary Left ventricular systolic function is normal. The right ventricle is normal in size and function. Ejection Fraction = 55-60%. The left atrium is moderately dilated. There is mild mitral regurgitation. Mild pulmonic valvular regurgitation. There is no pericardial effusion. MD Moy *Nafisa 04/29/2019 01:58 PM
--- NOTE | 2019-04-29 14:18 | DS ---
Physical Exam: SUBJECTIVE: Patient seen and examined. patient reports her pain is much better and she is able to tolerate diet. OBJECTIVE: Vital Signs Temperature 97.5 F L 04/29/19 15:16 Pulse Rate 57 L 04/29/19 15:16 Respiratory Rate 18 04/29/19 15:16 Blood Pressure 149/63 04/29/19 15:16 O2 Sat by Pulse Oximetry (%) 99 04/29/19 15:16 PHYSICAL EXAM GENERAL: The patient is awake, alert, and fully oriented, in no acute distress. EYES: PERRL, extraocular movements intact ENT: moist mucous membranes. LUNGS: Breath sounds equal, clear to auscultation bilaterally, no wheezes, no crackles, no accessory muscle use. HEART: Regular rate and rhythm, S1, S2 without murmur, rub or gallop. ABDOMEN: Soft, nontender, nondistended, normoactive bowel sounds, no guarding, no rebound, no hepatosplenomegaly, no masses. SKIN: Warm, dry, normal turgor, no rashes or lesions noted. LABS CBCD WBC 7.5 K/mm3 (4.0-10.0) 04/29/19 05:30 RBC 3.70 M/mm3 (3.60-5.2) 04/29/19 05:30 Hgb 10.5 GM/dL (10.7-15.3) L 04/29/19 05:30 Hct 31.7 % (32.4-45.2) L 04/29/19 05:30 MCV 85.5 fl (80-96) 04/29/19 05:30 MCHC 33.2 g/dl (32.0-36.0) 04/29/19 05:30 RDW 13.1 % (11.6-15.6) 04/29/19 05:30 Plt Count 177 K/MM3 (134-434) 04/29/19 05:30 MPV 9.4 fl (7.5-11.1) 04/29/19 05:30 CMP Sodium 140 mmol/L (136-145) 04/29/19 05:30 Potassium 3.7 mmol/L (3.5-5.1) 04/29/19 05:30 Chloride 108 mmol/L (98-107) H 04/29/19 05:30 Carbon Dioxide 23 mmol/L (21-32) 04/29/19 05:30 Anion Gap 9 MMOL/L (8-16) 04/29/19 05:30 BUN 22 mg/dL (7-18) H 04/29/19 05:30 Creatinine 1.2 mg/dL (0.55-1.3) 04/29/19 05:30 Calcium 9.0 mg/dL (8.5-10.1) 04/29/19 05:30 Total Bilirubin 0.3 mg/dL (0.2-1) 04/29/19 05:30 AST 14 U/L (15-37) L 04/29/19 05:30 ALT 16 U/L (13-61) 04/29/19 05:30 Alkaline Phosphatase 55 U/L (45-117) 04/29/19 05:30 Total Protein 7.0 g/dl (6.4-8.2) 04/29/19 05:30 Albumin 3.6 g/dl (3.4-5.0) 04/29/19 05:30 HOSPITAL COURSE: Date of Admission:04/28/19 Pt. is an 83 y.o. citizen of [place]-speaking F w/ PMHx. of NIDDM, HTN, CAD (No stents), HLD, Hypothyroidism, Arthritis, Diabetic Neuropathy, OSMIN (on home BiPAP), and Hiatal hernia who was admitted for epigastric pain. Patient di dnot have any abnormalities on CT scan. blood work found to be WNL and vitals stable. UA showed no sign of a UTI. Patients symptoms improved the next day and stable for discharge. Discussed follow up with an GI specialist for management of her pain. CT AP: no acute pathology, CBD: 0.8 cm; 1.7 cm L adrenal nodule (recommended f/ u CT/MRI in 3 months and biochemical studies); B/l ovarian cysts; B/l chronic sacroileitis Echo: LV systolic fxn normal, RV normal, EF 55-60, left atrium mildly dilated, mild mitral regurg Date of Discharge: 04/29/19 Minutes to complete discharge: 35 Discharge Summary Reason For Visit: PRE-SYNCOPE, ANGINAL EQUIVALENT,EPIGASTRIC PAIN Current Active Problems Adrenal nodule (Chronic) Condition: Improved - Instructions Diet, Activity, Other Instructions: You were admitted to the hospital for pain in your stomach. We did imaging of your stomach and did not find any abnormalities. We also did blood work and your kidneys, liver and blood are all normal. Please make an appointment with a [employer] to follow up your abdominal pain. You may need an endoscopy in the future. The imaging of your abdomen showed a mass in your adrenal gland. This is not something you need to stay in the hospital for. You will need a repeat abdominal CT scan in 3 month. Please discuss this with your primary care physician. The imaging also showed cysts on your ovaries. You should continue to follow up with your OBGYN doctor at [facility] who have been managing them. Please continue your home medications as prescribed. Please make an appointment to follow up with your primary care physician within one month. Return to the Emergency Department if you have any chest pain, nausea, vomiting , diarrhea, shortness of breath, or dizziness. Referrals: Johnson Khan DO [Staff Physician] - Disposition: HOME - Home Medications Comprehensive Discharge Medication List: Ambulatory Orders metFORMIN HCL [Metformin ER Osmotic] 1,000 mg PO BID 05/17/16 Rosuvastatin [Crestor -] 10 mg PO HS #30 tablet 03/30/17 Levothyroxine Sodium [Levoxyl] 125 mcg PO DAILY 02/28/19 Losartan/Hydrochlorothiazide [Losartan-Hctz 100-25 mg Tab] 1 each PO DAILY 02/28 Citalopram Hydrobromide [Citalopram HBr] 10 mg PO DAILY 04/28/19 Gabapentin [Neurontin] 100 mg PO HS 04/29/19 This patient is new to me today: No Emergency Visit: No Critical Care patient: No - Discharge Referral Referred to [facility] Med P.C.: No
--- NOTE | 2019-04-29 14:23 | PN ---
Progress Note (short form) - Note Progress Note: Called to evaluate patient however discharge prior to consult being performed
[2019-04-29 15:17] VITALS: BP 149/63; PULSE 57; TEMP 97.5
--- NOTE | 2019-04-29 18:10 | PN ---
Teaching Attending Note Name of Resident: Maria Ines Parkinson ATTENDING PHYSICIAN STATEMENT I saw and evaluated the patient. I reviewed the resident's note and discussed the case with the resident. I agree with the resident's findings and plan as documented. SUBJECTIVE: Abdominal discomfort since eating pork on Thursday, resolving. No fever/chills/nausea/vomiting/diarrhea. OBJECTIVE: Afebrile, Hemodynamically Stable. Last Vital Signs Temp Pulse Resp BP Pulse Ox 97.5 F L 57 L 18 149/63 98 04/29/19 15:16 04/29/19 15:16 04/29/19 15:16 04/29/19 15:16 04/29/19 17:05 HEENT - Atraumatic, Normocephalic. No neck stiffness. Heart - S1, S2, RRR Lungs - clear to auscultation Abdomen - High BMI. Soft, mild tenderness. Bowel Sounds normal. Extremities - no calf tenderness. Laboratory Results - last 24 hr 04/28/19 04/28/19 04/28/19 19:19 19:19 19:19 WBC 7.0 RBC 4.05 Hgb 11.3 Hct 34.7 MCV 85.7 MCH 27.9 MCHC 32.6 RDW 13.1 Plt Count 188 MPV 9.5 Absolute Neuts (auto) 5.2 Neutrophils % 74.4 Lymphocytes % 19.3 Monocytes % 5.5 Eosinophils % 0.5 Basophils % 0.3 Nucleated RBC % 0 ESR PT with INR 11.60 INR 0.98 PTT (Actin FS) 29.7 Sodium 136 Potassium 3.8 Chloride 105 Carbon Dioxide 22 Anion Gap 10 BUN 26 H Creatinine 1.2 Est GFR (CKD-EPI)AfAm 49.08 Est GFR (CKD-EPI)NonAf 42.35 POC Glucometer Random Glucose 138 H Calcium 9.6 Total Bilirubin 0.4 AST 11 L ALT 18 Alkaline Phosphatase 66 Troponin I < 0.02 C-Reactive Protein Total Protein 7.5 Albumin 3.8 Lipase 245 Urine Color Urine Appearance Urine pH Ur Specific [place] Urine Protein Urine Glucose (UA) Urine Ketones Urine Blood Urine Nitrite Urine Bilirubin Urine Urobilinogen Ur Leukocyte Esterase Urine WBC (Auto) Urine RBC (Auto) Urine Casts (Auto) U Epithel Cells (Auto) Urine Bacteria (Auto) 04/28/19 04/29/19 04/29/19 21:50 01:40 01:40 WBC RBC Hgb Hct MCV MCH MCHC RDW Plt Count MPV Absolute Neuts (auto) Neutrophils % Lymphocytes % Monocytes % Eosinophils % Basophils % Nucleated RBC % ESR PT with INR INR PTT (Actin FS) Sodium Potassium Chloride Carbon Dioxide Anion Gap BUN Creatinine Est GFR (CKD-EPI)AfAm Est GFR (CKD-EPI)NonAf POC Glucometer Random Glucose Calcium Total Bilirubin AST ALT Alkaline Phosphatase Troponin I < 0.02 C-Reactive Protein 0.6 H Total Protein Albumin Lipase Urine Color Yellow Urine Appearance Clear Urine pH 5.0 D Ur Specific [place] 1.013 Urine Protein Negative Urine Glucose (UA) Negative Urine Ketones Negative Urine Blood Negative Urine Nitrite Negative Urine Bilirubin Negative Urine Urobilinogen 0.2 Ur Leukocyte Esterase Trace Urine WBC (Auto) 1 Urine RBC (Auto) 2 Urine Casts (Auto) 1 U Epithel Cells (Auto) 1.4 Urine Bacteria (Auto) 159.3 04/29/19 04/29/19 04/29/19 01:40 05:30 05:30 WBC 7.5 RBC 3.70 Hgb 10.5 L Hct 31.7 L MCV 85.5 MCH 28.4 MCHC 33.2 RDW 13.1 Plt Count 177 MPV 9.4 Absolute Neuts (auto) 4.6 Neutrophils % 61.8 Lymphocytes % 31.2 D Monocytes % 5.9 Eosinophils % 0.7 Basophils % 0.4 Nucleated RBC % 0 ESR 38 H PT with INR INR PTT (Actin FS) Sodium 140 Potassium 3.7 Chloride 108 H Carbon Dioxide 23 Anion Gap 9 BUN 22 H Creatinine 1.2 Est GFR (CKD-EPI)AfAm 49.08 Est GFR (CKD-EPI)NonAf 42.35 POC Glucometer Random Glucose 130 H Calcium 9.0 Total Bilirubin 0.3 AST 14 L ALT 16 Alkaline Phosphatase 55 Troponin I C-Reactive Protein Total Protein 7.0 Albumin 3.6 Lipase Urine Color Urine Appearance Urine pH Ur Specific [place] Urine Protein Urine Glucose (UA) Urine Ketones Urine Blood Urine Nitrite Urine Bilirubin Urine Urobilinogen Ur Leukocyte Esterase Urine WBC (Auto) Urine RBC (Auto) Urine Casts (Auto) U Epithel Cells (Auto) Urine Bacteria (Auto) 04/29/19 04/29/19 06:36 11:40 WBC RBC Hgb Hct MCV MCH MCHC RDW Plt Count MPV Absolute Neuts (auto) Neutrophils % Lymphocytes % Monocytes % Eosinophils % Basophils % Nucleated RBC % ESR PT with INR INR PTT (Actin FS) Sodium Potassium Chloride Carbon Dioxide Anion Gap BUN Creatinine Est GFR (CKD-EPI)AfAm Est GFR (CKD-EPI)NonAf POC Glucometer 132 151 Random Glucose Calcium Total Bilirubin AST ALT Alkaline Phosphatase Troponin I C-Reactive Protein Total Protein Albumin Lipase Urine Color Urine Appearance Urine pH Ur Specific [place] Urine Protein Urine Glucose (UA) Urine Ketones Urine Blood Urine Nitrite Urine Bilirubin Urine Urobilinogen Ur Leukocyte Esterase Urine WBC (Auto) Urine RBC (Auto) Urine Casts (Auto) U Epithel Cells (Auto) Urine Bacteria (Auto) Current Medications Generic Name Dose Route Start Last Admin Trade Name Freq PRN Reason Stop Dose Admin Heparin Sodium (Porcine) 5,000 unit 04/29/19 02:00 04/29/19 09:26 Heparin - SQ 5,000 unit Q8H-IV LORI Administration Sodium Chloride 1,000 mls @ 75 mls/hr 04/29/19 01:15 04/29/19 01:39 Normal Saline - IV 75 mls/hr ASDIR LORI Administration Insulin Aspart 0 vial 04/29/19 07:00 04/29/19 11:50 Novolog Vial Sliding Scale - SQ 2 unit ACHS LORI Administration Protocol Melatonin 10 mg 04/29/19 22:00 Melatonin PO HS LORI Ondansetron HCl 4 mg 04/29/19 01:03 Zofran Injection IVPUSH Q6H PRN NAUSEA Pantoprazole Sodium 40 mg 04/29/19 10:00 04/29/19 09:26 Protonix Iv IVPUSH 40 mg BID LORI Administration ASSESSMENT AND PLAN: 83 year old female with history of DM 2, HTN, CAD, HLD, Hypothyroidism, Osteoarthritis, Diabetic Neuropathy, OSMIN (on home BiPAP), and Hiatal Hernia, presented with epigastric pain that started on Thursday and subsequent watery diarrhea, after having boiled banana and boiled pork on Thursday. 1. Acute Gastroenteritis CT A/P: no acute pathology, CBD: 0.8 cm CXR: no acute pathology Diarrhea resolved. Afebrile, Hemodynamically Stable. GI consulted but patient had not yet been seen by the afternoon, when we were informed that Dr. Sahu's office was not aware of the consult. Given patient's clinical improvement, resolution of pain and diarrhea, ability to tolerate oral intake, and negative CT Scan, patient was discharged with advice to follow with her own [facility] as out-patient. She and her son were in agreement. Continue PPI. 2. OSMIN - on BiPAP at night. 3. DM 2 - resume home medications 4. 1.7 cm L adrenal nodule - recommended f/u CT/MRI in 3 months 5. B/l ovarian cysts - known cycts - follows with own Synecologist. Medically Stable for discharge. ADDENDUM Given timing of discharge order and timing of GI note, GI was clearly aware of patient consult while patient was still in the hospital and declined to evaluate the patient.
[2019-04-29] MEDS ORDERED: MELATONIN 5 MG TABLETS PO SCH (22:00)
== END 2019-04-29 15:23 | disposition home or self-care (01) ==
LOC: JER 18:46 → JERBED 22:13
PROVIDERS: ADMIT Internal Medicine
PROC: 3E033GC Introduction of Other Therapeutic Substance into Peripheral Vein, Percutaneous Approach (ICD-10-PCS; principal; 2019-04-28)
PROC: 3E0337Z Introduction of Electrolytic and Water Balance Substance into Peripheral Vein, Percutaneous Approach (ICD-10-PCS; 2019-04-28)
PROC: 3E013VG Introduction of Insulin into Subcutaneous Tissue, Percutaneous Approach (ICD-10-PCS; 2019-04-28)
PROC: 3E013GC Introduction of Other Therapeutic Substance into Subcutaneous Tissue, Percutaneous Approach (ICD-10-PCS; 2019-04-28)
DX: K52.9 Noninfective gastroenteritis and colitis, unspecified (principal); R10.13 Epigastric pain; I20.9 Angina pectoris, unspecified; R55 Syncope and collapse; E27.9 Disorder of adrenal gland, unspecified; I10 Essential (primary) hypertension; E78.5 Hyperlipidemia, unspecified; E11.9 Type 2 diabetes mellitus without complications; E03.9 Hypothyroidism, unspecified; I25.10 Atherosclerotic heart disease of native coronary artery without angina pectoris; G47.33 Obstructive sleep apnea (adult) (pediatric); M54.30 Sciatica, unspecified side; M19.90 Unspecified osteoarthritis, unspecified site; M54.2 Cervicalgia; Z79.84 Long term (current) use of oral hypoglycemic drugs; Z99.89 Dependence on other enabling machines and devices
CPT/HCPCS: 36415; 71045-TC-FY; 74177-TC; 80053; 81003; 82962; 83690; 84484; 85025; 85610; 85651; 85730; 86140; 87086; 87186; 93005; 93010; 93306-TC; 94660; 96365; 96372; 96375; 99285-25; G0378; J1644; J7030

== ENCOUNTER 2021-07-29 21:12 | Observation (INO) | payer OTHER ==
[2021-07-29 22:02] LABS: PH,URINE 7.5 (5.0-8.0); URINE APPEARANCE CLEAR; URINE BILIRUBIN NEGATIVE (NEGATIVE); URINE COLOR YELLOW; URINE GLUCOSE (UA) NEGATIVE (NEGATIVE); URINE KETONE NEGATIVE (NEGATIVE); URINE LEUK ESTERASE NEGATIVE (NEGATIVE); URINE NITRITE NEGATIVE (NEGATIVE); URINE PROTEIN NEGATIVE (NEGATIVE); URINE UROBILINOGEN 0.2 mg/dL (0.2-1.0)
[2021-07-29] MEDS ORDERED: SODIUM CHLORIDE 250 ML IV STA (22:31)
[2021-07-29 22:36] LABS: BASO % 0.5 % (0-2.0); HEMATOCRIT 31.5 % (32.4-45.2); HEMOGLOBIN 10.4 GM/dL (10.7-15.3); LYMPH % 23.1 % (8-40); MCH 28.2 pg (25.7-33.7); MCHC 33.2 g/dl (32.0-36.0); MEAN CELL VOLUME 85.1 fl (80-96); MEAN PLT VOLUME 9.1 fl (7.5-11.1); MONO % 5.9 % (3.8-10.2); NEUT % 69.5 % (42.8-82.8); PLATELET COUNT 181 10^3/uL (134-434); RBC 3.69 M/mm3 (3.60-5.2); RDW 14.2 % (11.6-15.6); WHITE BLOOD COUNT 8.3 K/mm3 (4.0-10.0)
[2021-07-29 22:41] LABS: INR 0.99 (0.83-1.09); PROTHROMBIN TIME (PATIENT) 12.2 SEC (9.7-13.0)
[2021-07-29 22:53] LABS: CHLORIDE 108 mmol/L (98-107); SODIUM 144 mmol/L (136-145)
[2021-07-29 22:55] LABS: CALCIUM 9.2 mg/dL (8.5-10.1)
[2021-07-29 22:56] LABS: ALBUMIN 3.6 g/dl (3.4-5.0); ANION GAP 7 MMOL/L (8-16); BLOOD UREA NITROGEN 24.9 mg/dL (7-18); CO2 29 mmol/L (21-32); GLUCOSE,RANDOM 133 mg/dL (74-106)
[2021-07-29 22:59] LABS: CREATININE 1.2 mg/dL (0.55-1.3); SGOT/AST 19 U/L (15-37); SGPT/ALT 16 U/L (13-61)
[2021-07-29 23:00] LABS: BILIRUBIN,TOTAL 0.2 mg/dL (0.2-1); TOT PROT 7.1 g/dl (6.4-8.2)
[2021-07-29 23:02] LABS: ALK PHOS 52 U/L (45-117)
[2021-07-30 06:19] LABS: HEMATOCRIT 30.9 % (32.4-45.2); HEMOGLOBIN 10.3 GM/dL (10.7-15.3); MCH 28.2 pg (25.7-33.7); MCHC 33.4 g/dl (32.0-36.0); MEAN CELL VOLUME 84.5 fl (80-96); MEAN PLT VOLUME 9.4 fl (7.5-11.1); PLATELET COUNT 175 10^3/uL (134-434); RBC 3.65 M/mm3 (3.60-5.2); RDW 14.1 % (11.6-15.6); WHITE BLOOD COUNT 7.8 K/mm3 (4.0-10.0)
[2021-07-30 06:37] LABS: CALCIUM 8.9 mg/dL (8.5-10.1); CHLORIDE 110 mmol/L (98-107); SODIUM 143 mmol/L (136-145)
[2021-07-30 06:38] LABS: ANION GAP 2 MMOL/L (8-16); BLOOD UREA NITROGEN 22.6 mg/dL (7-18); CO2 31 mmol/L (21-32); GLUCOSE,RANDOM 122 mg/dL (74-106); MAGNESIUM 1.8 mg/dL (1.8-2.4)
[2021-07-30 06:41] LABS: CREATININE 1.1 mg/dL (0.55-1.3); PHOSPHOROUS 2.9 mg/dL (2.5-4.9)
[2021-07-30 06:44] LABS: IRON SERUM 39 ug/dL (50-175); TOTAL IRON BINDING CAPACITY 265 ug/dL (250-450)
[2021-07-30] MEDS ORDERED: LEVOTHYROXINE NA 25 MCG TABLET (FP) ONE (08:00)
[2021-07-30] MEDS: INSULIN SLIDING SCALE (NOVOLOG) 1 VIAL SQ SCH ×4 (08:05→21:02)
[2021-07-30] MEDS ORDERED: PT OWN MED DRAWER 7, Y5N ONE ×2 (08:06→13:15)
[2021-07-30] MEDS: LEVOTHYROXINE NA 125 MCG TABLET (FP) PO SCH (08:08)
[2021-07-30 09:31] LABS: LIPASE 889 U/L (73-393)
[2021-07-30] MEDS: LOSARTAN 50MG/HCTZ 12.5MG 1 TAB PO SCH (10:16)
[2021-07-30] MEDS: ISOSORBIDE MONONITRATE 30 MG TAB.SR.24H (FP) PO SCH (10:16)
[2021-07-30] MEDS: DULoxetine HCL 20 MG CAPSULE.DR PO SCH (10:17)
[2021-07-30] MEDS ORDERED: PANTOPRAZOLE 40 MG TABLET ONE (13:18)
[2021-07-30] MEDS: PANTOPRAZOLE 20 MG TABLET PO SCH (13:26)
[2021-07-30] MEDS ORDERED: SODIUM CHLORIDE 1,000 ML IV SCH (13:30)
[2021-07-30] MEDS ORDERED: INSULIN SLIDING SCALE (NOVOLOG) 1 VIAL SQ ONE (18:26)
[2021-07-30] MEDS ORDERED: ROSUVASTATIN CA 10 MG TABLET (FP) PO SCH (22:00)
[2021-07-31 01:41] VITALS: BMI 33.1
[2021-07-31] MEDS: INSULIN SLIDING SCALE (NOVOLOG) 1 VIAL SQ SCH ×2 (06:15→12:12)
[2021-07-31] MEDS: LEVOTHYROXINE NA 125 MCG TABLET (FP) PO SCH (06:16)
[2021-07-31 07:39] LABS: BASO % 0.2 % (0-2.0); EOS % 1.1 % (0-4.5); HEMATOCRIT 32.2 % (32.4-45.2); HEMOGLOBIN 10.7 GM/dL (10.7-15.3); LYMPH % 29.7 % (8-40); MCH 28.1 pg (25.7-33.7); MCHC 33.2 g/dl (32.0-36.0); MEAN CELL VOLUME 84.6 fl (80-96); MEAN PLT VOLUME 9.5 fl (7.5-11.1); MONO % 8.1 % (3.8-10.2); NEUT % 60.9 % (42.8-82.8); PLATELET COUNT 180 10^3/uL (134-434); RBC 3.81 M/mm3 (3.60-5.2); RDW 13.7 % (11.6-15.6); WHITE BLOOD COUNT 6.6 K/mm3 (4.0-10.0)
[2021-07-31 07:48] LABS: ALBUMIN 3.6 g/dl (3.4-5.0); CALCIUM 9.3 mg/dL (8.5-10.1)
[2021-07-31 07:49] LABS: BLOOD UREA NITROGEN 17.4 mg/dL (7-18)
[2021-07-31 07:52] LABS: CREATININE 1.1 mg/dL (0.55-1.3)
[2021-07-31 07:53] LABS: BILIRUBIN,TOTAL 0.4 mg/dL (0.2-1)
[2021-07-31] MEDS: PANTOPRAZOLE 20 MG TABLET PO SCH (11:49)
[2021-07-31] MEDS: ISOSORBIDE MONONITRATE 30 MG TAB.SR.24H (FP) PO SCH (11:50)
[2021-07-31] MEDS: DULoxetine HCL 20 MG CAPSULE.DR PO SCH (11:50)
[2021-07-31] MEDS: LOSARTAN 50MG/HCTZ 12.5MG 1 TAB PO SCH (11:50)
[2021-07-31 13:59] VITALS: PULSE 66
[2021-07-31 14:57] VITALS: BP 111/64; TEMP 98.1
== END 2021-07-31 19:06 | disposition home or self-care (01) ==
LOC: JER 21:12 → UNDOADMOB 23:41 → JERBED 23:41 → OBSVTOIN 07-30 12:53 → INTOOBSV 07-30 12:53 → JERBED 07-30 20:45 → J4W 07-30 20:45 → JERBED 07-31 10:51 → J4W 07-31 10:51
PROVIDERS: ADMIT Internal Medicine; ATTEND Internal Medicine
PROC: 3E0337Z Introduction of Electrolytic and Water Balance Substance into Peripheral Vein, Percutaneous Approach (ICD-10-PCS; principal; 2021-07-31)
DX: I25.10 Atherosclerotic heart disease of native coronary artery without angina pectoris (principal); I25.83 Coronary atherosclerosis due to lipid rich plaque; G47.33 Obstructive sleep apnea (adult) (pediatric); I10 Essential (primary) hypertension; E11.40 Type 2 diabetes mellitus with diabetic neuropathy, unspecified; E66.9 Obesity, unspecified; Z68.33 Body mass index [BMI] 33.0-33.9, adult; I45.10 Unspecified right bundle-branch block; R60.0 Localized edema; E03.9 Hypothyroidism, unspecified; M19.90 Unspecified osteoarthritis, unspecified site; Z29.9 Encounter for prophylactic measures, unspecified
CPT/HCPCS: 36415; 70450-TC; 70496-TC; 70498-TC; 71045-TC-FY; 80048; 80053; 81003; 82272; 82550; 82553; 82728; 82962; 83540; 83550; 83690; 83735; 84100; 84443; 84466; 84484; 85025; 85027; 85045; 85610; 87086; 93005; 93010; 93306-TC; 96360; 96361; 99285-25; C9803; G0378; Q9967; U0003; U0005

== ENCOUNTER 2024-10-12 06:20 | Observation (INO) | payer OTHER ==
[2024-10-12] MEDS: ACETAMINOPHEN 1000 MG/100 ML BAG IVPB ONE (07:54)
[2024-10-12] MEDS ORDERED: ACETAMINOPHEN INJECTION 100 ML ONE (07:55)
[2024-10-12 08:06] LABS: BASO % 0.5 % (0-2.0); EOS % 1.4 % (0-4.5); HEMATOCRIT 35.6 % (32.4-45.2); HEMOGLOBIN 11.5 GM/dL (10.7-15.3); LYMPH % 25.9 % (8-40); MCH 27.8 pg (25.7-33.7); MCHC 32.4 g/dl (32.0-36.0); MEAN CELL VOLUME 85.8 fl (80-96); MEAN PLT VOLUME 8.2 fl (7.5-11.1); MONO % 7.5 % (3.8-10.2); NEUT % 64.7 % (42.8-82.8); PLATELET COUNT 217 10^3/uL (134-434); RBC 4.16 M/mm3 (3.60-5.2); RDW 12.8 % (11.6-15.6); WHITE BLOOD COUNT 7.1 K/mm3 (4.0-10.0)
[2024-10-12 08:13] LABS: EPI CELLS 3 /uL (0-25.1); HYALINE CASTS 0 /uL (0-3.1); PH,URINE 6.5 (5.0-8.0); URINE APPEARANCE CLEAR; URINE BILIRUBIN NEGATIVE (NEGATIVE); URINE COLOR DK YELLOW; URINE GLUCOSE (UA) NEGATIVE (NEGATIVE); URINE KETONE NEGATIVE (NEGATIVE); URINE LEUK ESTERASE 2+ (NEGATIVE); URINE NITRITE POSITIVE (NEGATIVE); URINE PROTEIN 1+ (NEGATIVE); URINE UROBILINOGEN 0.2 mg/dL (0.2-1.0); URINE WBC 245 /uL (0-25.8)
[2024-10-12 08:27] LABS: POTASSIUM 4.1 mmol/L (3.5-5.1)
[2024-10-12 08:29] LABS: CALCIUM 9.8 mg/dL (8.5-10.1)
[2024-10-12 08:30] LABS: ALBUMIN 3.8 g/dl (3.4-5.0); BLOOD UREA NITROGEN 20.3 mg/dL (7-18); MAGNESIUM 1.8 mg/dL (1.8-2.4)
[2024-10-12 08:33] LABS: CREATININE 1.1 mg/dL (0.55-1.3)
[2024-10-12 08:34] LABS: BILIRUBIN,TOTAL 0.4 mg/dL (0.2-1)
[2024-10-12 08:35] LABS: TOT PROT 7.4 g/dl (6.4-8.2)
[2024-10-12 08:43] LABS: URINE BACTERIA 154 /uL (0-1359); URINE RBC 18.1 /uL (0-23.9)
[2024-10-12] MEDS ORDERED: cefTRIAXone SODIUM 1 GM VIAL ONE (09:34)
[2024-10-12] MEDS: CEFTRIAXONE 1,000 MG in DEXTROSE 5%-WATER - 50 ML IVPB ONE (09:34)
[2024-10-12] MEDS ORDERED: LIDOCAINE 5% TOPICAL PATCH ONE (12:21)
[2024-10-12] MEDS ORDERED: amLODIPine BESYLATE 5 MG TABLET (FP) ONE (12:21)
[2024-10-12] MEDS: amLODIPine BESYLATE 5 MG TABLET (FP) PO ONE (12:25)
[2024-10-12] MEDS: LIDOCAINE 5% TOPICAL PATCH TP ONE (12:25)
[2024-10-12] MEDS ORDERED: IBUPROFEN 400 MG TABLET (FP) PO ONE (13:23)
[2024-10-12] MEDS: IBUPROFEN 400 MG TABLET (FP) PO ONE (13:26)
[2024-10-12] MEDS: hydrALAZINE HCL 20 MG/ML VIAL IVPUSH ONE (15:58)
[2024-10-12] MEDS: INSULIN (NOVOLOG) ASPART 100 UNITS/ML 10ML VIAL SQ SCH (16:42)
[2024-10-12] MEDS ORDERED: INSULIN ASPART SLIDING SCALE (NOVOLOG) 1 VIAL SQ ONE (16:45)
[2024-10-12] MEDS ORDERED: ROSUVASTATIN CA 5 MG TABLET ONE (22:24)
[2024-10-12] MEDS: HEPARIN NA (PORCINE) 5,000 UNITS/ML 1ML VIAL SQ SCH (22:25)
[2024-10-12] MEDS: ROSUVASTATIN CA 10 MG TABLET PO SCH (22:25)
[2024-10-12] MEDS: LIDOCAINE PATCH REMOVAL MC ONE (22:25)
[2024-10-12] MEDS ORDERED: HEPARIN NA (PORCINE) 5,000 UNITS/ML 1ML VIAL ONE (22:25)
[2024-10-12] MEDS: DULoxetine HCL 20 MG CAPSULE.DR PO SCH (22:25)
[2024-10-13 01:02] VITALS: BMI 32.7
[2024-10-13 02:31] VITALS: RESP 18
[2024-10-13] MEDS: LEVOTHYROXINE NA 125 MCG TABLET (FP) PO SCH (06:14)
[2024-10-13 09:38] LABS: BASO % 0.8 % (0-2.0); EOS % 1.9 % (0-4.5); HEMATOCRIT 37.8 % (32.4-45.2); LYMPH % 32.9 % (8-40); MCH 26.9 pg (25.7-33.7); MCHC 31.7 g/dl (32.0-36.0); MEAN PLT VOLUME 8.4 fl (7.5-11.1); MONO % 7.8 % (3.8-10.2); NEUT % 56.6 % (42.8-82.8); PLATELET COUNT 235 10^3/uL (134-434); RBC 4.45 M/mm3 (3.60-5.2); WHITE BLOOD COUNT 7.1 K/mm3 (4.0-10.0)
[2024-10-13] MEDS ORDERED: LOSARTAN 50MG/HCTZ 12.5MG 1 TAB PO SCH (10:00)
[2024-10-13] MEDS ORDERED: LOSARTAN POTASSIUM 25 MG TABLET PO SCH (10:00)
[2024-10-13] MEDS: MAGNESIUM OXIDE 400 MG TABLET (FP) PO SCH (10:20)
[2024-10-13] MEDS: ISOSORBIDE MONONITRATE 30 MG TAB.SR.24H (FP) PO SCH (10:20)
[2024-10-13] MEDS: LOSARTAN POTASSIUM 25 MG TABLET PO SCH (10:20)
[2024-10-13] MEDS: CEFTRIAXONE 1 G/50 ML PREMIX 50 ML IVPB SCH (10:20)
[2024-10-13 10:21] LABS: POTASSIUM 3.7 mmol/L (3.5-5.1)
[2024-10-13 10:23] LABS: ALBUMIN 3.7 g/dl (3.4-5.0); CALCIUM 9.7 mg/dL (8.5-10.1)
[2024-10-13 10:24] LABS: BLOOD UREA NITROGEN 19.9 mg/dL (7-18); MAGNESIUM 1.9 mg/dL (1.8-2.4)
[2024-10-13 10:27] LABS: CREATININE 1.1 mg/dL (0.55-1.3)
[2024-10-13 10:28] LABS: BILIRUBIN,TOTAL 0.4 mg/dL (0.2-1); TOT PROT 7.2 g/dl (6.4-8.2)
[2024-10-13] MEDS ORDERED: HEPARIN NA (PORCINE) 5,000 UNITS/ML 1ML VIAL IVPUSH PRN ×2 (11:12)
[2024-10-13] MEDS: amLODIPine BESYLATE 5 MG TABLET (FP) PO SCH (11:45)
[2024-10-13] MEDS: HEPARIN INFUSION - 25,000 UNITS/500 ML INFUS.BAG IVPB SCH (11:45)
[2024-10-13] MEDS: ACETAMINOPHEN 500 MG TABLET (FP) PO PRN (11:48)
[2024-10-13] MEDS: CLOPIDOGREL BISULFATE 300 MG TABLET PO ONE (11:51)
[2024-10-13] MEDS ORDERED: ACETAMINOPHEN 500 MG TABLET (FP) PO PRN (12:04)
[2024-10-13] MEDS: ASPIRIN 325 MG ENTERIC COATED TABLET (FP) PO ONE (14:26)
[2024-10-13 15:35] VITALS: BP 130/68; PULSE 83; TEMP 98.4
[2024-10-13] MEDS ORDERED: ROSUVASTATIN CA 20 MG TABLET PO SCH (22:00)
[2024-10-14] MEDS ORDERED: LEVOTHYROXINE NA 125 MCG TABLET (FP) PO SCH (07:00)
== END 2024-10-13 17:30 | disposition short-term general hospital (02) ==
LOC: JER 06:20 → JERBED 13:41 → J4S 23:49
PROVIDERS: ADMIT Internal Medicine; ATTEND Internal Medicine
PROC: 3E033NZ Introduction of Analgesics, Hypnotics, Sedatives into Peripheral Vein, Percutaneous Approach (ICD-10-PCS; principal; 2024-10-12)
PROC: 3E03329 Introduction of Other Anti-infective into Peripheral Vein, Percutaneous Approach (ICD-10-PCS; 2024-10-12)
PROC: 3E023GC Introduction of Other Therapeutic Substance into Muscle, Percutaneous Approach (ICD-10-PCS; 2024-10-12)
PROC: 3E033GC Introduction of Other Therapeutic Substance into Peripheral Vein, Percutaneous Approach (ICD-10-PCS; 2024-10-12)
PROC: 3E033NZ Introduction of Analgesics, Hypnotics, Sedatives into Peripheral Vein, Percutaneous Approach (ICD-10-PCS; 2024-10-12)
DX: I21.4 Non-ST elevation (NSTEMI) myocardial infarction (principal); I16.0 Hypertensive urgency; E11.9 Type 2 diabetes mellitus without complications; Z29.89 Encounter for other specified prophylactic measures; N39.0 Urinary tract infection, site not specified; I11.9 Hypertensive heart disease without heart failure; Z86.711 Personal history of pulmonary embolism; Z85.51 Personal history of malignant neoplasm of bladder; M54.12 Radiculopathy, cervical region; Z99.81 Dependence on supplemental oxygen; E03.9 Hypothyroidism, unspecified
CPT/HCPCS: 36415; 71045-TC-FY; 71275-TC; 80048; 80053; 80061; 81003; 82550; 82962; 83036; 83690; 83735; 84439; 84443; 84484; 85025; 85730; 87086; 87635; 93005; 93010; 93306-TC; 96365; 96366; 96367; 96372; 96375; 97116-GP; 97161-GP; 99285-25; G0378; J0131; J1644; Q9967